=== PATIENT | male | born 1970 | race Caucasian/White ===

== ENCOUNTER 2020-02-22 18:43 | Emergency (ER) | payer MEDICARE, SELFPAY ==
--- NOTE | ~2020-02-22 | XR_ITS ---
EXAMINATION: XR chest 1V portable DATE: 02/22/2020 21:10 INDICATION: Fever. Dyspnea. TECHNIQUE: A single frontal view of the chest was obtained. COMPARISON: Chest 2 views 08/22/2018 FINDINGS: There are mild airspace opacities at the junction of right mid and upper lung zones. No ple ural effusion or pneumothorax. The heart size is normal. IMPRESSION: 1. Mild airspace opacities at the junction of right mid and upper lung zone suspicious for pneumonia. Follow-up radiographs are recommended to exclude malignancy. Reviewed, dictated and finalized at location A. IMPRESSION: 1. Mild airspace opacities at the junction of right mid and upper lung zone kathy picious for pneumonia. Follow-up radiographs are recommended to exclude maligna ncy.
[2020-02-22 18:51] VITALS: BP 122/105; PULSE 122; RESP 20; TEMP 37.9; O2SAT 96
[2020-02-22 19:15] VITALS: BP 125/84; PULSE 107; RESP 16; O2SAT 96
[2020-02-22 20:25] VITALS: RESP 17; O2SAT 99
--- NOTE | 2020-02-22 20:29 | PC.NURSE ---
Patient states he was around his cousin, whom later informed him that he was tested and tested positive for covid. Patient states he did contact his PCP and was told to come in since his symptoms worsened. Patient states he was taking OTC medications with no relief.
[2020-02-22 20:31] VITALS: BP 139/99; PULSE 106; RESP 17; O2SAT 97
--- NOTE | 2020-02-22 21:04 | ED.FEVER ---
HPI - Fever General Chief Complaint: Fever Stated Complaint: Here for Covid test Time Seen by Provider: 02/22/20 20:05 Source: patient Mode of arrival: ambulatory Limitations: no limitations History of Present Illness HPI Narrative: Patient is a 49-year-old male who presents to the emergency department with complaint of multiple illness symptoms and concerned that he has COVID-19. Patient states he has been fishing with his cousin who has recently tested positive for COVID-19. Patient has been ill for the past 3 days. He reports decreased smell and taste, fever, sore throat, cough, nausea/vomiting/diarrhea, and shortness of breath. Patient called his primary care doctor and was told he should seek medical attention if his symptoms were to worsen. Patient noticed burning sensation in his chest when he breathes, prompting him to come to the ED to be evaluated. MD elicited complaint: fever Context: sick contacts (Cousin recently tested positive for COVID-19. Patient has had direct contact) Associated symptoms: chills, myalgias, sore throat, cough, shortness of breath, nausea, vomiting and diarrhea Related Data Home Medications Medication Instructions Recorded Confirmed citalopram 20 mg tablet 20 mg PO DAILY 09/17/19 naproxen 500 mg tablet 500 mg PO BID 09/17/19 tizanidine 2 mg tablet 2 mg PO TID PRN 09/17/19 Allergies Allergy/AdvReac Type Severity Reaction Status Date / Time erythromycin base Allergy Unknown Unknown Verified 02/22/20 20:35 Review of Systems Review of Systems: All systems reviewed & are unremarkable except as noted in HPI and below Constitutional: Constitutional: Reports chills and Reports fever(s) ENT: Reports sore throat Respiratory: Respiratory: Reports cough and Reports dyspnea Gastrointestinal: Gastrointestinal: Reports diarrhea, Reports nausea and Reports vomiting Musculoskeletal: Musculoskeletal: Reports myalgias and Reports muscle cramps PMFSH Past Medical History Medical History Anxiety Chronic low back pain with left-sided sciatica Esophageal stricture GERD (gastroesophageal reflux disease) GERD without esophagitis History of esophageal stricture 08/21/2018 Hypogonadism in male Mild episode of recurrent major depressive disorder Morbid obesity with BMI of 40.0-44.9, adult LISBET (obstructive sleep apnea) Perennial allergic rhinitis Surgical History Surgical History History of arthroscopy of shoulder History of vasectomy Social History Social History Smoking status: Never smoker Second hand tobacco smoke exposure: No Alcohol intake: current Exam Const: General: cooperative, no acute distress and alert Nutritional Appearance: obese Orientation/consciousness: patient oriented x3 Limitations: no limitations Eyes: Conjunctivae: conjunctivae normal Pupils: Equal, round and reactive pupils present Resp: Effort & Inspection: normal respiratory effort Auscultation: clear to auscultation bilaterally Cardio: Rate: tachycardic Rhythm: regular rhythm GI: GI Palp: Yes Soft to palpation and No Tenderness to palpation present (GI) Auscultation: normal bowel sounds Skin: General skin exam: normal color Neuro: General: patient oriented x3 Cognition (Neuro): normal cognition Speech: normal speech Extrem: General: normal to inspection, full ROM and no clubbing, cyanosis or edema Psych: Mental Status: mental status grossly normal Affect: normal affect Attitude: cooperative Course TECHNICAL MAINTENANCE TECHNICIAN/PA Physician Supervision Patient likely with coronavirus. Advised on symptomatic management. No overt findings of pneumonia. Patient oxygen saturations normal on room air. Test has been sent and patient instructed to follow-up results with primary care physician. Patient patient is nontoxic and appropriate for outpat
[2020-02-22 21:18] VITALS: BP 138/93; PULSE 104; RESP 20; O2SAT 98
[2020-02-24 13:55] LABS: SARS-CoV-2 RNA PCR Positive
== END 2020-02-22 21:25 | disposition home or self-care (01) ==
PROVIDERS: Emergency Provider Emergency Medicine; PCP Family Medicine
DX: U07.1 COVID-19 (principal); F41.9 Anxiety disorder, unspecified; K21.9 Gastro-esophageal reflux disease without esophagitis; F32.9 Major depressive disorder, single episode, unspecified; E66.01 Morbid (severe) obesity due to excess calories; Z68.41 Body mass index [BMI] 40.0-44.9, adult; E29.1 Testicular hypofunction; M54.42 Lumbago with sciatica, left side
CPT/HCPCS: 71045; 87635; 99283; C9803; U0003

== ENCOUNTER 2020-09-07 02:33 | Outpatient (CLI) | payer MEDICARE, SELFPAY ==
[2020-09-07 21:22] LABS: SARS-CoV-2 RNA PCR Negative
== END 2020-09-07 02:34 | disposition home or self-care (01) ==
LOC: ANHCOVIDDT 02:34
PROVIDERS: PCP Family Medicine; Visit Provider Internal Medicine Gastroenterology
DX: Z01.812 Encounter for preprocedural laboratory examination (principal); Z20.828 Contact with and (suspected) exposure to other viral communicable diseases
CPT/HCPCS: 87635; C9803; U0003

== ENCOUNTER 2020-09-10 00:21 | Day surgery (SDC) | payer MEDICARE, SELFPAY ==
[2020-09-03 15:07] VITALS: BMI 41.4
[2020-09-10 11:51] VITALS: BP 139/87; PULSE 84; RESP 18; TEMP 37.1; O2SAT 94
[2020-09-10] MEDS: LACTATED RINGERS 1,000 ML 150 ML IV CONT (11:55)
--- NOTE | 2020-09-10 12:46 | WPDANESEPPF ---
Anes - Initial Pre Proc Eval Procedure: Operation Date: 09/10/20 13:30 Proposed Procedures p Screening Colonoscopy - Tim Hernández MD Date/Time: 09/10/20 12:46 Surgeon: Tim Hernández MD Pre Op Diagnosis: Neoplasm Screening Patient Data Age: 50 Gender: M Height: 5 ft 5 in Weight: 117.6 kg Last Vital Signs Temp 98.8 F 09/10/20 11:51 Pulse 84 09/10/20 11:51 Resp 18 09/10/20 11:51 BP 139/87 09/10/20 11:51 Pulse Ox 94 09/10/20 11:51 Allergies Allergy/AdvReac Type Severity Reaction Status Date / Time erythromycin base Allergy Unknown Unknown Verified 09/10/20 11:49 Home Medications Medication Instructions Recorded Confirmed Type lansoprazole 30 mg delayed 30 mg PO DAILY #90 tablet 05/14/20 09/03/20 Rx release,disintegrating tablet citalopram 20 mg tablet See Rx Instructions .ROUTE 07/28/20 09/03/20 Rx .COMPLEX #90 tablet lorazepam 0.5 mg tablet 0.5 mg PO BID PRN #60 tablet 07/28/20 09/03/20 Rx naproxen 500 mg tablet See Rx Instructions .ROUTE 07/28/20 09/03/20 Rx .COMPLEX #60 tablet tizanidine 2 mg tablet See Rx Instructions .ROUTE 07/28/20 09/03/20 Rx .COMPLEX #90 tablet albuterol sulfate [ProAir HFA] See Rx Instructions .ROUTE .COMPLEX 09/03/20 09/03/20 History Patient hx anesthesia problems: none Family hx anesthesia problems: none PMFSH Past Medical History Medical History Anxiety Chronic neck and back pain Esophageal stricture GERD (gastroesophageal reflux disease) History of esophageal dilatation 4 times, last in 1999 History of esophageal stricture 08/21/2018 Hypogonadism in male Mild episode of recurrent major depressive disorder Morbid obesity with BMI of 40.0-44.9, adult LISBET (obstructive sleep apnea) Perennial allergic rhinitis Surgical History Surgical History History of arthroplasty of both knees 2004 to 2008 History of arthroscopy of shoulder 2007 History of left inguinal hernia repair 1989 History of lumbosacral spine surgery 2004 History of tonsillectomy History of vasectomy 1995 Family History Family History Other Family history of coronary artery disease Family history of renal cell carcinoma Social History Social History Smoking status: Never smoker Second hand tobacco smoke exposure: No Alcohol intake: current Substance use type: does not use Living arrangements: with family Gender identity (if verbalized by the patient): Male Sexual Orientation (if Verbalized by the Patient): Straight or Heterosexual Spiritual care concerns: No Anes - Eval Final PreProcedure Day of Procedure 09/10/20 12:46 Patient weight: morbidly obese Heart: regular rate and rhythm Lungs: clear to auscultation Airway: Mallampati scale class II Neurological: alert and oriented Last oral intake: >/= 8 hours ASA classification: III Emergent: no Anesthetic plan: proceed Anesthesia type and monitoring: general GIVS and standard monitoring Informed Consent: The patient's anesthetic plan and its attendant risks and benefits were discussed with the patient/family/POA. Questions were solicited and answers provided to the satisfaction of the patient/family/POA.
--- NOTE | 2020-09-10 12:47 | PM.HPGS ---
History of Present Illness History of Present Illness Consent: Risks, benefits, and alternatives have been discussed and questions answered. Patient agrees to proceed with procedure. Chief complaint: Neoplasm Screening Narrative: Vu Porter is a 50 year old male here for screening colonoscopy, last one 5 years ago. Review of Systems Constitutional: Constitutional: Denies headache(s) and Denies weakness Eyes: Eyes: Denies blurry vision ENT: Reports Normal hearing present, Denies headache(s) and Denies neck pain Cardiovascular: Cardiovascular: Denies chest pain and Denies dyspnea Respiratory: Respiratory: Denies dyspnea Gastrointestinal: Gastrointestinal: Reports no additional gastrointestinal complaints Genitourinary: Genitourinary: Denies dysuria Musculoskeletal: Musculoskeletal: Denies neck pain Integumentary/Breasts: Skin/Breast: Denies dry skin Neurologic: Reports Normal hearing present, Denies headache(s) and Denies weakness Psychiatric: Psychiatric: Denies anxiety Endocrine: Endocrine: Denies change in body appearance Hematologic/Lymphatic: Hematologic/Lymphatic: Denies easy bleeding Allergic/Immunologic: Allergic/Immunologic: Denies urticaria PMFSH Past Medical History Medical History Anxiety Chronic neck and back pain Esophageal stricture GERD (gastroesophageal reflux disease) History of esophageal dilatation 4 times, last in 1999 History of esophageal stricture 08/21/2018 Hypogonadism in male Mild episode of recurrent major depressive disorder Morbid obesity with BMI of 40.0-44.9, adult LISBET (obstructive sleep apnea) Perennial allergic rhinitis Surgical History Surgical History History of arthroplasty of both knees 2004 to 2008 History of arthroscopy of shoulder 2007 History of left inguinal hernia repair 1989 History of lumbosacral spine surgery 2004 History of tonsillectomy History of vasectomy 1995 Family History Family History Other Family history of coronary artery disease Family history of renal cell carcinoma Social History Social History Smoking status: Never smoker Second hand tobacco smoke exposure: No Alcohol intake: current Substance use type: does not use Living arrangements: with family Gender identity (if verbalized by the patient): Male Sexual Orientation (if Verbalized by the Patient): Straight or Heterosexual Spiritual care concerns: No Meds Home Medications and Allergies Home Medications Medication Instructions Recorded Confirmed Type lansoprazole 30 mg delayed 30 mg PO DAILY #90 tablet 05/14/20 09/03/20 Rx release,disintegrating tablet citalopram 20 mg tablet See Rx Instructions .ROUTE 07/28/20 09/03/20 Rx .COMPLEX #90 tablet lorazepam 0.5 mg tablet 0.5 mg PO BID PRN #60 tablet 07/28/20 09/03/20 Rx naproxen 500 mg tablet See Rx Instructions .ROUTE 07/28/20 09/03/20 Rx .COMPLEX #60 tablet tizanidine 2 mg tablet See Rx Instructions .ROUTE 07/28/20 09/03/20 Rx .COMPLEX #90 tablet albuterol sulfate [ProAir HFA] See Rx Instructions .ROUTE .COMPLEX 09/03/20 09/03/20 History Allergies Allergy/AdvReac Type Severity Reaction Status Date / Time erythromycin base Allergy Unknown Unknown Verified 09/10/20 11:49 Vital Signs Vital Signs - 24 hr 09/10/20 11:51 Temperature 98.8 F Pulse Rate 84 Respiratory Rate 18 Blood Pressure 139/87 Pulse Oximetry 94 Exam Const: General: comfortable and no acute distress HENMT: General nose exam: Normal nares present Eyes: General: appearance normal, both eyes and all related structures Neck: Neck: no JVD Resp: Auscultation: clear to auscultation bilaterally Cardio: Rate: regular rate Rhythm: regular rhythm GI: Inspection: non-diste
[2020-09-10 13:04] VITALS: BP 109/73; PULSE 80; RESP 22; O2SAT 95
[2020-09-10 13:14] VITALS: BP 118/71; PULSE 80; RESP 22; O2SAT 95
[2020-09-10 13:24] VITALS: BP 134/88; PULSE 75; RESP 22; O2SAT 95
== END 2020-09-10 13:37 | disposition home or self-care (01) ==
PROVIDERS: PCP Family Medicine; Visit Provider Internal Medicine Gastroenterology
PROC: 0DJD8ZZ Inspection of Lower Intestinal Tract, Via Natural or Artificial Opening Endoscopic (ICD-10-PCS; CPT 45378; principal; 2020-09-10 13:30)
DX: Z12.11 Encounter for screening for malignant neoplasm of colon (principal); K21.9 Gastro-esophageal reflux disease without esophagitis; F33.0 Major depressive disorder, recurrent, mild; F41.9 Anxiety disorder, unspecified; G47.33 Obstructive sleep apnea (adult) (pediatric); E29.1 Testicular hypofunction; E66.01 Morbid (severe) obesity due to excess calories; Z68.41 Body mass index [BMI] 40.0-44.9, adult
CPT/HCPCS: G0121; J2704; J7120

== ENCOUNTER 2020-11-18 12:35 | Outpatient (CLI) | payer MEDICARE, SELFPAY ==
--- NOTE | 2020-11-20 13:03 | WPDPFTINT ---
PFT Interpretation PFT Interpretation: This PFT met all criteria for ATS standards and reproducibility FEV/FVC post bronchodilator 86% FEV1 143 % FVC 125% TLC 112% RV 75% RV/TLC 24% DLCO 91% when adjusted for alveolar volume but not adjusted for hemoglobin Flow volume loops showed normal Impression: This is a normal PFT. Clinical correlation is advised.
== END 2020-11-18 12:36 | disposition home or self-care (01) ==
PROVIDERS: PCP Family Medicine; Visit Provider Internal Medicine Critical Care Medicine
DX: R06.02 Shortness of breath (principal)
CPT/HCPCS: 94060; 94726; 94729

== ENCOUNTER → 2020-12-08 00:33 | Outpatient (CLI) | payer MEDICARE, SELFPAY ==
[2020-12-08 21:18] LABS: SARS-CoV-2 RNA PCR Negative
== END ==
PROVIDERS: PCP Family Medicine; Visit Provider Internal Medicine Critical Care Medicine
DX: R68.89 Other general symptoms and signs (principal); Z20.822 Contact with and (suspected) exposure to COVID-19
CPT/HCPCS: C9803; U0003; U0005

== ENCOUNTER 2020-12-10 09:04 | Outpatient (CLI) | payer MEDICARE, SELFPAY ==
--- NOTE | 2020-12-25 13:31 | WPDSLEEPSTUD ---
Sleep Study Date of Study: 12/10/20 Ordering Provider: Ara Jain MD Interpreting Physician: Ara Jain MD Sleep Study Type: Split Polysomnogram Height: 1.6 m Weight: 113.398 kg Body Mass Index: 44.2 Neck Circumference (inches): 18 [place]: 9 Reason for Sleep Study LISBET, Using CPAP 14 cm without relief Sleep History Vu Porter is a 50 year old man with sleep apnea who is using CPAP 14 cm as well as Provigil during the daytime to improve his daytime sleepiness. He constantly snores and it is loud enough that others complain about it always. He occasionally awakens at night with heartburn, belching or coughing. He frequently awakens from sleep feeling short of breath. He frequently has trouble sleep with a cold. He occasionally wakes up gasping for breath during the night. He frequently has breathing problems at night observed by others. He frequently sweats excessively at night and notices his heart pounding or beating irregularly at night. He frequently falls asleep during the day frequently involuntarily, rarely while driving. He does not fall asleep while exerting physical effort. He occasionally has loss of muscle tone was strong emotion. He frequently has daytime difficulties due to his excessive sleepiness, he is currently disabled. He occasionally feels paralyzed on waking or falling asleep. He rarely has vivid dreamlike scenes upon awakening or falling asleep. He rarely feels afraid to go to sleep. He rarely has nightmares. He rarely remembers his dreams. He occasionally has racing thoughts. He occasionally feels sad, depressed and anxious. He occasionally has muscular tension. He rarely notices parts of his body jerking. He rarely kicks at night. He occasionally has crawling and aching feelings in his legs. He occasionally has leg pain at night. He rarely has morning jaw pain. He does not grind his teeth during sleep. He frequently is bothered by pain during the day as well as wakes up with pain during the night. He frequently wakes up feeling stiff in the morning with sore achy muscles as well as pain in the neck and spine. He has memory problems, concentration difficulties, insomnia, headaches and he takes antacids regularly. Normal bedtime is 2:00 a.m. taking 2 hours to fall asleep typically waking 4 times at night. While awake he will look at his telephone and try to go back to sleep. He may wake up 4 times at night. He stays awake between 5 and 10 minutes. He estimates getting 3-4 hours of sleep if he is lay. He never has enough energy for social activities. He wakes in the morning between 9 and 10:00 a.m.. On the weekends his schedule shows that he goes to bed at 2:00 a.m. and may wake as late as 11:00 a.m.. He takes naps. A short nap may be refreshing. He is drowsy in the morning for 2 hours or longer. Habits: He indicates that he does not use tobacco. He uses occasional alcohol. He drinks tea. He does not use recreational drugs. COUNT INCLUDES THE [facility] Past Medical History Medical History Anxiety Chronic neck and back pain Colon cancer screening Esophageal stricture GERD (gastroesophageal reflux disease) History of esophageal dilatation 4 times, last in 1999 History of esophageal stricture 08/21/2018 History of wheezing Hypogonadism in male Mild episode of recurrent major depressive disorder Morbid obesity with BMI of 40.0-44.9, adult LISBET (obstructive sleep apnea) Perennial allergic rhinitis Surgical History Surgical History History of arthroplasty of both knees 2004 to 2008 History of arthroscopy of shoulder 2007 History of left inguinal hernia repair 1989 History of lumbosacral spine surgery 2004 History of tonsillectomy History of vasectomy 1995 Family History Family History Other Family history of [place]
[2020-12-25 15:34] VITALS: BMI 44.2
== END 2020-12-10 09:05 | disposition home or self-care (01) ==
LOC: ANHCSM 09:04
PROVIDERS: PCP Family Medicine; Visit Provider Internal Medicine Critical Care Medicine
DX: G47.33 Obstructive sleep apnea (adult) (pediatric) (principal)
CPT/HCPCS: 95811

== ENCOUNTER 2021-02-23 13:11 | Outpatient (CLI) | payer MEDICARE, SELFPAY ==
--- NOTE | ~2021-02-23 | XR_ITS ---
EXAMINATION: XR chest 2V EXAM DATE: 02/23/2021 14:22 INDICATION: R06.02 - Shortness of breath, follow-up lung nodule. TECHNIQUE: Frontal and lateral projections of the chest obtained and reviewed. Comparison is made to prior examination from 02/22/2020. FINDINGS: Previously seen airspace disease has resolved. The lungs are clear. There are no pleural e ffusions. The cardiomediastinal silhouette is within normal limits. There is no pneumothorax sus[place] n[place]ul. The bones and soft tissues are unremarkable. IMPRESSION: Unremarkable chest x-ray exam. Reviewed, dictated and finalized at location B.
--- NOTE | 2021-02-23 13:24 | ECHO_ITS ---
Patient Info Name: Vu Porter Age: 50 years : 1970 Gender: Male Ht: 65 in Wt: 255 lbs BSA: 2.36 m2 HR: 72 bpm BP: 130 / 90 mmHg Technical Quality: Good Exam Date: 02/23/2021 1:39 PM Exam Location: [facility] Patient Status: Outpatient Admit Date: 02/23/2021 Staff Ordering Physician: Olvin Anna APRN Vegetable Packer: Abdi Palacios RDCS, RT Attending Provider: Olvin Anna APRN Referring Physician: Wilfrido BARRERA; Exam Type: CA echo doppler color flow Study Info Indications R06.02 - Shortness of breath Complete two-dimensional, color flow and Doppler transthoracic echocardiogram is performed. Strain analysis performed. Summary 1. Complete two-dimensional, color flow and Doppler transthoracic echocardiogram is performed. 2. Left ventricular chamber dimension is normal. 3. Left ventricular systolic function is normal, estimated at 60-65%. 4. The left ventricular diastolic function is grade II diastolic dysfunction. 5. E/e' 9 is minimally elevated. 6. Global longitudinal strain is mildly abnormal at -16.3%. 7. There is trace mitral valve regurgitation. 8. Dilated inferior vena cava with <50% collapse upon inspiration consistent with significantly elevated right atrial pressure, 15 mmHg. Left Ventricle E/e' 9 is minimally elevated. Global longitudinal strain is mildly abnormal at -16.3%. Left ventricular chamber dimension is normal. Left ventricular systolic function is normal, estimated at 60-65%. The left ventricular diastolic function is grade II diastolic dysfunction. Right Ventricle Right ventricular systolic function is normal with normal TAPSE at 2.5 cm. Right ventricular chamber dimension is normal. Left Atria Left atrial chamber dimension is normal. Right Atria Right atrial chamber dimension is normal. Aortic Valve The aortic valve is trileaflet. There is no aortic valve stenosis. There is no aortic valve regurgitation. Pulmonic Valve There is no pulmonic regurgitation. Mitral Valve There is no mitral valve stenosis. There is trace mitral valve regurgitation. Tricuspid Valve There is no tricuspid valve regurgitation. Pericardium/Pleural There is no pericardial effusion. Inferior Vena Cava Dilated inferior vena cava with <50% collapse upon inspiration consistent with significantly elevated right atrial pressure, 15 mmHg. Aorta The aortic root size at the sinus of Valsalva is normal. Left Ventricular Outflow Tract Name Value Normal LVOT 2D LVOT Diameter 2.0 cm LVOT Doppler LVOT Peak Gradient 3 mmHg LVOT Mean Gradient 2 mmHg LVOT VTI 20 cm LVOT VTI/AV VTI Ratio 0.8 LVOT Stroke Volume 62 ml LVOT CO 4.5 l/min LVOT CI 1.9 l/min/m2 Mitral Valve Name Value Normal
== END 2021-02-23 13:12 | disposition home or self-care (01) ==
PROVIDERS: PCP Family Medicine; Visit Provider Nurse Practitioner Family
DX: R06.02 Shortness of breath (principal); I51.89 Other ill-defined heart diseases
CPT/HCPCS: 71046; 93306

== ENCOUNTER 2021-10-04 11:54 | Outpatient (CLI) | payer MEDICARE, SELFPAY ==
--- NOTE | ~2021-10-04 | US_ITS ---
EXAMINATION: US soft tissue UE RT DATE: 10/04/2021 12:41 INDICATION: Localized swelling, mass and lump at the posterior right upper arm TECHNIQUE: Multiple grayscale and Doppler ultrasound images of the region of concern at the right upp er arm were obtained. COMPARISON: None FINDINGS: 2.2 x 2.7 x 0.8 cm mass, minimally hyperechoic and with similar echotexture relative to the surroundi ng subcutaneous fat most suggestive of a lipoma. A few normal-sized right axillary lymph nodes with p rominent central fatty esau, the largest measuring 8 mm in maximal short axis diameter. IMPRESSION: 1. Nonspecific 2.7 x 2.2 x 0.8 cm mass at the region of concern with appearance most consistent with and statistically most likely to represent a lipoma. Reviewed, dictated and finalized at location A. ERCIAL SUBCONTRACTOR
== END 2021-10-04 11:55 | disposition home or self-care (01) ==
LOC: ANHIMG 11:57
PROVIDERS: PCP Family Medicine; Visit Provider Nurse Practitioner
DX: R22.31 Localized swelling, mass and lump, right upper limb (principal)
CPT/HCPCS: 76882

== ENCOUNTER → 2021-11-13 00:09 | Outpatient (CLI) | payer MEDICARE, SELFPAY ==
[2021-11-13 20:23] LABS: SARS-CoV-2 RNA PCR Negative
== END ==
PROVIDERS: PCP Family Medicine; Visit Provider Surgery
DX: Z01.812 Encounter for preprocedural laboratory examination (principal); Z20.822 Contact with and (suspected) exposure to COVID-19
CPT/HCPCS: C9803; U0003; U0005

== ENCOUNTER → 2021-12-07 02:13 | Outpatient (CLI) | payer MEDICARE, SELFPAY ==
[2021-12-07 16:44] LABS: SARS-CoV-2 RNA PCR Negative
== END ==
PROVIDERS: Visit Provider Surgery
DX: Z01.812 Encounter for preprocedural laboratory examination (principal); Z20.822 Contact with and (suspected) exposure to COVID-19
CPT/HCPCS: C9803; U0003; U0005

== ENCOUNTER 2021-12-10 00:34 | Day surgery (SDC) | payer MEDICARE, SELFPAY ==
[2021-11-16 09:46] VITALS: BMI 41.5
--- NOTE | 2021-11-16 09:53 | PC.NURSE ---
Report to the Outpatient Waiting Room, entrance under the green pavilion located off [facility], at time 1130 on date 11/17/21. OR Time: 1330. - You will be asked a series of questions to screen for COVID 19 for your protection. - A mask is required within the hospital. - No visitors are allowed at this time. Preoperative COVID Testing Requirements: NEGATIVE 11/13 No COVID Test needed if: (proof is required; if not received patient will have Rapid Test prior to entry) - Patient has received COVID Vaccine at least 14 days prior to procedure date or - Patient has positive COVID test result within last 90 days of surgery date. COVID Test needed if above criteria is not met If not COVID vaccinated a COVID test must be conducted within 72 hours of surgery and patient is asked to isolate self from time of testing until procedure. You will go to the [facility] for your COVID testing. The [facility] is located at the corner of [address] [facility]. You will only be called if COVID results are positive and your surgeon may reschedule your elective surgery date. Patients may have clear liquids (water, carbonated beverages, clear teas, apple juice) until 3 hours prior to surgery with a maximum of 20 ounces. - No food from midnight until time of surgery Take the following medications with a SIP of water the morning of surgery: CITALOPRAM, LORAZEPAM (IF NEEDED), TIZANIDINE Medications to discontinue per physician: VITAMINS Date to take last dose: NO MORE UNTIL AFTER SURGERY Please no make-up, nail belarusian, hairspray, perfume, deodorant, or body powder the day of surgery. No jewelry (including any body piercings) or valuables the day of surgery, leave them at home. Please take a shower or bath the night before, or the morning of, surgery with an antibacterial soap. Wear comfortable, loose fitting clothing. - Jewelry must be removed prior to entering the operating room. Rings and piercings that are not removed may be cut off. - The hospital will not accept responsibility for valuables. - Please leave all valuables, including medications, at home the day of surgery. If you are going home after surgery, a licensed batch mixing truck driver must drive you home. - NO public transportation without another adult. - We recommend that an adult stay with you for 24 hours following discharge. - We also recommend that you do not drive, make important decision, drink alcoholic beverages, or take any drugs that were not prescribed by your health care provider for at least 24 hours after your discharge time. Follow any additional instructions given to you from your surgeon. Telephone instructions given to BA MERA and asked if any additional questions and then verbalized understanding. Patient advised to call surgeon office or pre surgery nurse liaison [phone] if any additional questions.
[2021-12-06 15:00] VITALS: BMI 41.5
--- NOTE | 2021-12-06 15:01 | PC.NURSE ---
Report to the Outpatient Waiting Room, entrance under the green pavilion located off [facility], at time __0630_ on date _12/10/21 . OR Time: ___829_. - You will be asked a series of questions to screen for COVID 19 for your protection. - A mask is required within the hospital. - You are allowed one visitor are allowed at this time. Preoperative COVID Testing Requirements: No COVID Test needed if: (proof is required; if not received patient will have Rapid Test prior to entry) - Patient has received COVID Vaccine at least 14 days prior to procedure date or - Patient has positive COVID test result within last 90 days of surgery date. COVID Test needed if above criteria is not met If not COVID vaccinated a COVID test must be conducted within 72 hours of surgery and patient is asked to isolate self from time of testing until procedure. You will go to the [facility] for your COVID testing. The [facility] is located at the corner [address] [facility]. COVID TEST 12/07/21 @ 0900 AT [facility] You will only be called if COVID results are positive and your surgeon may reschedule your elective surgery date. Patients may have clear liquids (water, carbonated beverages, clear teas, apple juice) until 3 hours prior to surgery with a maximum of 20 ounces. - No food from midnight until time of surgery - Infants may have breast milk until 4 hours before surgery, infant formula 6 hours prior to surgery. - Children will be allowed to drink immediately following surgery. If applicable, please bring a bottle or sippy cup to assist with drinking. Juice, water, soda, and popsicles are readily available. For infants on formula, please bring formula the day of surgery. Pacifiers are allowed. Take the following medications with a SIP of water the morning of surgery: _CITALOPRAM, ALPRAZOLAM Medications to discontinue per physician MULTIVITAMIN Date to take last dose__12/06/21 Please no make-up, nail georgian, hairspray, perfume, deodorant, or body powder the day of surgery. No jewelry (including any body piercings) or valuables the day of surgery, leave them at home. Please take a shower or bath the night before, or the morning of, surgery with an antibacterial soap. Wear comfortable, loose fitting clothing. Children are encouraged to wear pajamas. - Jewelry must be removed prior to entering the operating room. Rings and piercings that are not removed may be cut off. - The hospital will not accept responsibility for valuables. - Please leave all valuables, including medications, at home the day of surgery. If you are going home after surgery, a licensed industrial tractor driver must drive you home. - NO public transportation without another adult. - We recommend that an adult stay with you for 24 hours following discharge. - We also recommend that you do not drive, make important decision, drink alcoholic beverages, or take any drugs that were not prescribed by your health care provider for at least 24 hours after your discharge time. For Pediatric surgeries, we recommend two adults accompany the child home (only one inside the building at this time). Follow any additional instructions given to you from your surgeon. Telephone instructions given to _NURY and asked if any additional questions and then verbalized understanding. Patient advised to call surgeon office or pre surgery nurse liaison [phone] if any additional questions. MEDICATIONS AND HEALTH HX UPDATED AND PREOP INSTRUCTIONS GIVEN
[2021-12-10 06:14] VITALS: BP 136/91; PULSE 87; RESP 20; TEMP 36.7; O2SAT 95
[2021-12-10] MEDS: LACTATED RINGERS 1,000 ML 30 ML IV CONT (06:35)
--- NOTE | 2021-12-10 06:49 | WPDANESEPPF ---
Anes - Initial Pre Proc Eval Procedure: Operation Date: 12/10/21 08:30 Proposed Procedures p Excisional Biopsy Right Upper Extremity Mass - Miriam Briones MD Date/Time: 12/10/21 06:49 Surgeon: Miriam Briones MD Pre Op Diagnosis: sub q mass right upper extremity 3x3cm Patient Data Age: 51 Gender: M Height: 1.65 m Weight: 113.4 kg Allergies Allergy/AdvReac Type Severity Reaction Status Date / Time erythromycin base Allergy Severe Anaphylaxis Verified 12/10/21 06:21 Home Medications Medication Instructions Recorded Confirmed Type citalopram 20 mg tablet 20 mg PO DAILY #90 tablet 05/14/21 12/10/21 Rx lorazepam 0.5 mg tablet 0.5 mg PO BID PRN #60 tablet 07/30/21 12/10/21 Rx multivitamin 1 tablet PO DAILY 11/16/21 12/10/21 History fluticasone propionate 50 2 spray INTRANASAL DAILY #16 g 11/17/21 12/10/21 Rx mcg/actuation nasal spray,suspension naproxen 500 mg tablet 500 mg PO BID PRN #60 tablet 11/18/21 12/10/21 Rx tizanidine 2 mg tablet 2 mg PO TID PRN #90 tablet 11/18/21 12/10/21 Rx albuterol sulfate [ProAir HFA] 2 puff INHALATION Q4-6H PRN 12/06/21 12/10/21 History lansoprazole 30 mg PO DAILY 12/06/21 12/10/21 History levofloxacin 500 mg tablet 500 mg PO DAILY #10 tablet 12/09/21 12/10/21 Rx prednisone 10 mg tablet 10 mg PO BID #20 tablet 12/09/21 12/10/21 Rx Patient hx anesthesia problems: none Family hx anesthesia problems: none Results Review: All pre-operative results and documents have been reviewed as part of the pre-operative evaluation. [facility] Past Medical History Medical History Abnormal CXR Anxiety Chronic neck and back pain Esophageal stricture GERD (gastroesophageal reflux disease) History of esophageal dilatation 4 times, last in 1999 History of esophageal stricture 08/21/2018 History of wheezing Hypogonadism in male Mild episode of recurrent major depressive disorder Morbid obesity with BMI of 40.0-44.9, adult LISBET (obstructive sleep apnea) Perennial allergic rhinitis Surgical History Surgical History History of arthroplasty of both knees 2004 to 2008 History of arthroscopy of shoulder 2007 History of left inguinal hernia repair 1989 History of lumbosacral spine surgery 2004 History of right knee joint replacement (~2020) History of tonsillectomy History of vasectomy 1995 Family History Family History Other Diabetes mellitus Family history of coronary artery disease Family history of renal cell carcinoma Social History Social History Smoking status: Never smoker Second hand tobacco smoke exposure: No Alcohol intake: current Drinks per week: 4 Substance use: never Substance use type: does not use Living arrangements: with family Additional occupation/education comments: Disabled Gender identity (if verbalized by the patient): Male Sexual Orientation (if Verbalized by the Patient): Straight or Heterosexual Spiritual care concerns: No Anes - Eval Final PreProcedure Day of Procedure 12/10/21 06:49 Patient weight: morbidly obese Heart: regular rate and rhythm Lungs: clear to auscultation Airway: Mallampati scale class III Neurological: alert and oriented Last oral intake: >/= 8 hours ASA classification: III Emergent: no Anesthetic plan: proceed Anesthesia type and monitoring: general LMA and standard monitoring Results Review: All pre-operative results and documents have been reviewed as part of the pre-operative evaluation. Informed Consent: The patient's anesthetic plan and its attendant risks and benefits were discussed with the patient/family/POA. Questions were solicited and answers provided to the satisfaction of the patient/family/POA.
--- NOTE | 2021-12-10 07:21 | PM.IMHP ---
H&P: HPI History of Present Illness Date/Time: 12/10/21 07:21 Vu is a 51 y/o male who presents to our office at the request of Evonne Rodriguez NP with complaints of a subcutaneous mass on his right shoulder. He states the mass has been present for 3 years. He states he has noticed an increase in size of the mass over the past 3 months. He states he can feel the mass more with certain movements and has occasional shooting pain down his arm. Chief Complaint: R should mass Review of Systems Review of Systems: All systems reviewed & are unremarkable except as noted in HPI and below PMFSH Past Medical History Medical History Abnormal CXR Anxiety Chronic neck and back pain Esophageal stricture GERD (gastroesophageal reflux disease) History of esophageal dilatation 4 times, last in 1999 History of esophageal stricture 08/21/2018 History of wheezing Hypogonadism in male Mild episode of recurrent major depressive disorder Morbid obesity with BMI of 40.0-44.9, adult LISBET (obstructive sleep apnea) Perennial allergic rhinitis Surgical History Surgical History History of arthroplasty of both knees 2004 to 2008 History of arthroscopy of shoulder 2007 History of left inguinal hernia repair 1989 History of lumbosacral spine surgery 2004 History of right knee joint replacement (~2020) History of tonsillectomy History of vasectomy 1995 Family History Family History Other Diabetes mellitus Family history of coronary artery disease Family history of renal cell carcinoma Social History Social History Smoking status: Never smoker Second hand tobacco smoke exposure: No Alcohol intake: current Drinks per week: 4 Substance use: never Substance use type: does not use Living arrangements: with family Additional occupation/education comments: Disabled Gender identity (if verbalized by the patient): Male Sexual Orientation (if Verbalized by the Patient): Straight or Heterosexual Spiritual care concerns: No Meds Home Medications and Allergies Home Medications Medication Instructions Recorded Confirmed Type citalopram 20 mg tablet 20 mg PO DAILY #90 tablet 05/14/21 12/10/21 Rx lorazepam 0.5 mg tablet 0.5 mg PO BID PRN #60 tablet 07/30/21 12/10/21 Rx multivitamin 1 tablet PO DAILY 11/16/21 12/10/21 History fluticasone propionate 50 2 spray INTRANASAL DAILY #16 g 11/17/21 12/10/21 Rx mcg/actuation nasal spray,suspension naproxen 500 mg tablet 500 mg PO BID PRN #60 tablet 11/18/21 12/10/21 Rx tizanidine 2 mg tablet 2 mg PO TID PRN #90 tablet 11/18/21 12/10/21 Rx albuterol sulfate [ProAir HFA] 2 puff INHALATION Q4-6H PRN 12/06/21 12/10/21 History lansoprazole 30 mg PO DAILY 12/06/21 12/10/21 History levofloxacin 500 mg tablet 500 mg PO DAILY #10 tablet 12/09/21 12/10/21 Rx prednisone 10 mg tablet 10 mg PO BID #20 tablet 12/09/21 12/10/21 Rx Allergies Allergy/AdvReac Type Severity Reaction Status Date / Time erythromycin base Allergy Severe Anaphylaxis Verified 12/10/21 06:21 Exam Const: General: cooperative, comfortable and no acute distress Nutritional Appearance: obese Orientation/consciousness: patient oriented x3 Resp: Auscultation: clear to auscultation bilaterally Cardio: Rate: regular rate Rhythm: regular rhythm GI: Inspection: normal to inspection GI Palp: Yes Soft to palpation and No Tenderness to palpation present (GI) Skin: Other: R shoulder - well circumscribed SQ mass measuring approx 3x3 cm, mild TTP, no overlying skin changes Assessment and Plan Assessment and plan (1) Subcutaneous mass of right upper extremity: Code(s): R22.31 - Localized swelling, mass and lump, right upper limb Status: Acute Assessment and Plan: given gr
--- NOTE | 2021-12-10 07:24 | WPDHPUPDATE1 ---
History and Physical Update Update Date/Time: 12/10/21 07:24 History and Physical has been reviewed, including an updated exam of the patient. There are NO changes in the patient's condition. Risks, benefits, and alternatives have been discussed and questions answered. Patient agrees to proceed with procedure.
[2021-12-10] MEDS: ceFAZolin 2 GM/D5W 50 ML 2 GM/50 ML BAG IVPB (07:28)
[2021-12-10] MEDS: BUPIVACAINE/EPINEPHRINE 0.5% 30 ML VIAL 10 ML INFILTRATE (07:28)
[2021-12-10 08:15] VITALS: BP 120/59; PULSE 81; RESP 16; O2SAT 93
--- NOTE | 2021-12-10 08:28 | P.OP_ITS ---
Procedure Note - Detailed Date of Procedure 12/10/21 Pre-op Diagnosis sub q mass right upper extremity 3x3cm Post-op Diagnosis same Procedure Performed Excisional biopsy subcutaneous mass right upper extremity Surgeon Miriam Briones MD Anesthesia MAC and local Indications 51-year-old male with progressively growing right shoulder subcutaneous mass over last few years, now symptomatic with movement Findings multi lobular lipoma Description of Procedure The patient was taken the operating room and placed in the supine position. After adequate induction of MAC anesthesia, the patient was prepped and draped i n the normal sterile fashion. A time-out was then done to verify the patient's identity, as well as the procedure being performed. I began by localizing the area around this palpable mass in the right lateral shoulder. I then made an incision through the dermis into the subcutaneous tissue. There was noted to be a well encapsulated mass, lipoma just anterior to the fascia. This was excised in full will be sent to pathology for further review. There was some other smaller lipomatous masses in the area that I also excised. Once the cavity was completely clear, I copiously irrigated the cavity and gained hemostasis with the Bovie cautery. I then closed the subcutaneous tissue with 3-0 Vicryl suture. The skin was closed with subcuticular 4-0 Monocryl suture. The patient tolerated the procedure well and was alert and awake in the operating room postoperatively. He will be sent to the recovery room in stable condition. Estimated Blood Loss 10 Drains No Packing No Pathology yes Complications No immediate complications Condition stable Disposition PACU
[2021-12-10 08:45] VITALS: BP 125/67; PULSE 79; RESP 16; O2SAT 94
== END 2021-12-10 09:05 | disposition home or self-care (01) ==
PROVIDERS: PCP Family Medicine; Visit Provider Surgery
PROC: (CPT 24071; principal; 2021-12-10 08:30)
DX: D17.21 Benign lipomatous neoplasm of skin and subcutaneous tissue of right arm (principal); F41.9 Anxiety disorder, unspecified; F33.0 Major depressive disorder, recurrent, mild; K21.9 Gastro-esophageal reflux disease without esophagitis; G47.33 Obstructive sleep apnea (adult) (pediatric); E66.01 Morbid (severe) obesity due to excess calories; Z68.41 Body mass index [BMI] 40.0-44.9, adult; Z79.51 Long term (current) use of inhaled steroids
CPT/HCPCS: 24071; 88304; J0690; J1100; J2250; J2370; J2704; J3010; J7120

== ENCOUNTER 2022-04-20 09:05 | Outpatient (CLI) | payer MEDICARE, SELFPAY ==
--- NOTE | ~2022-04-20 | NM_ITS ---
EXAMINATION: NM marilou stress w perfusion DATE: 04/20/2022 12:28 CDT INDICATION: Dyspnea TECHNIQUE: Rest images were obtained following intravenous administration of 9 mCi Tc99m tetrofosmin (Myoview). The patient was infused intravenously with Lexiscan (regadenoson). Then, 28.3 mCi Tc99m te trofosmin (Myoview) was administered intravenously, and stress images were obtained. Data was reconst ructed into short axis and horizontal and vertical long axis SPECT images. Gated SPECT images were al so obtained. COMPARISON: None. FINDINGS: There is no definite reversible or fixed perfusion abnormality to suggest ischemia or infar ction. There is no segmental wall motion abnormality. Left ventricular ejection fraction measures 7 0%. IMPRESSION: 1. No definite ischemia or infarct. 2. Normal left ventricular ejection fraction measuring 70%. Reviewed, dictated and finalized at location A.
--- NOTE | 2022-04-20 09:31 | EST_ITS ---
Patient Info Name: Vu Porter Age: 51 years : 1970 Gender: Male Ht: 65 in Wt: 270 lbs BSA: 2.44 m2 HR: 84 bpm BP: 135 / 78 mmHg Heart Rhythm: Sinus Rhythm Exam Date: 04/20/2022 10:17 AM Exam Location: [facility] Stress Patient Status: Outpatient Admit Date: 04/20/2022 Staff Ordering Physician: Mendez Laguna DO Attending Provider: Mendez Laguna DO Exercise Technologist: Saritha Jenkins CT Exam Type: CA stress marilou w NM Study Info Indications R06.00 - Dyspnea, unspecified A regadenoson stress test was performed. Summary 1. 1. Negative lexiscan stress test for ischemic ST changes by ECG criteria. 2. 2. Stable hemodynamics throughout the test. 3. 3. Nuclear scan to follow and will be reported separately. Please correlate with it. 4. 4. Patient informed of the above results. Protocol: Lexiscan Stress ECG Details Stage: REST Duration (min): 0 min : 57 sec HR (bpm): 82 SBP (mmHg): 135 DBP (mmHg): 78 Stage: REST Duration (min): 10 min : 21 sec HR (bpm): 85 SBP (mmHg): 135 DBP (mmHg): 78 Stage: STAGE 1 Duration (min): 1 min : 0 sec HR (bpm): 99 SBP (mmHg): 132 DBP (mmHg): 91 Stage: RECOVERY Duration (min): 1 min : 0 sec HR (bpm): 108 SBP (mmHg): 132 DBP (mmHg): 91 Stage: RECOVERY Duration (min): 2 min : 0 sec HR (bpm): 104 SBP (mmHg): 132 DBP (mmHg): 91 Stage: RECOVERY Duration (min): 3 min : 0 sec HR (bpm): 102 SBP (mmHg): 122 DBP (mmHg): 83 Stage: RECOVERY Duration (min): 3 min : 15 sec HR (bpm): 103 SBP (mmHg): 122 DBP (mmHg): 83 Rest HR: 85 bpm Peak HR: 108 bpm Rest Sys BP: 135 mmHg Peak Sys BP: 132 mmHg Max Pred HR: 167 bpm % Max Pred HR: 65 % Target HR: 142 bpm Max RPP: 14,256 bpm*mmHg Termination Reason: Completed protocol Cardiac Symptoms: Shortness of breath Total Time: 1 min : 0 sec Rest Garcia BP: 78 mmHg Peak Garcia BP: 91 mmHg Total Dose: 0.4 mg Resting ECG Sinus rhythm. Stress ECG No ST changes. Arrhythmias None. Report Signatures
== END 2022-04-20 09:06 | disposition home or self-care (01) ==
PROVIDERS: PCP Family Medicine; Visit Provider Internal Medicine Cardiovascular Disease
DX: R06.00 Dyspnea, unspecified (principal)
CPT/HCPCS: 78452; 93017; A9502; J2785

== ENCOUNTER 2022-08-03 12:10 | Outpatient (CLI) | payer MEDICARE, SELFPAY ==
--- NOTE | ~2022-08-03 | US_ITS ---
EXAMINATION: US renal BI DATE: 08/03/2022 12:43 INDICATION: Renal cyst seen on MRI TECHNIQUE: Multiple grayscale and Doppler ultrasound images of the kidneys were obtained. COMPARISON: 03/25/2016 FINDINGS: The right kidney measures 10.7 x 4.8 x 6.1 cm. The left kidney measures 12.8 x 4.2 x 6.8 cm . There is a 2.7 cm simple cyst of the left kidney.. The kidneys demonstrate normal parenchymal echog enicity. There is mild left hydronephrosis. The bladder is incompletely distended but otherwise unrem arkable in appearance. IMPRESSION: 1. 2.6 cm simple cyst of the left kidney. 2. Mild left hydronephrosis of unclear etiology. Reviewed, dictated and finalized at location A.
== END 2022-08-03 12:11 | disposition home or self-care (01) ==
PROVIDERS: PCP Family Medicine; Visit Provider Nurse Practitioner Family
DX: I10 Essential (primary) hypertension (principal); N28.1 Cyst of kidney, acquired; N13.30 Unspecified hydronephrosis
CPT/HCPCS: 76775

== ENCOUNTER 2022-11-28 09:17 | Outpatient (CLI) | payer MEDICARE, SELFPAY ==
--- NOTE | 2022-11-28 11:00 | NEURO_ITS ---
Impression: # Complains of numbness of hands. # Subtle Carpal Tunnel Syndrome bilaterally (sensory). # Normal needle/EMG exam. # Clinical correlation recommended. Motor Nerve Conduction Upper Extremities Median Nerve Conduction Velocity (m/sec) Terminal Latency (msec) Response Voltage(mV) Elbow-Wrist Wrist Elbow Wrist Right 58 3.4 1 1 Left 57 3.4 1 3 Ulnar Nerve Conduction Velocity (m/sec) Terminal Latency (msec) Response Voltage(mV) Above Elbow Below Elbow Wrist Above Elbow Below Elbow Wrist Right 60 2.7 5 6 Left 61 2.7 5 7 F-Wave Latency Median (ms) Ulnar (ms) Right 28.4 27.3 Left 28.3 27.4 Sensory Nerve Conduction Upper Extremities Median Nerve Stimulation Terminal Latency (msec) Wrist/Digit Response Voltage (uV) Wrist Right 3.9/4.0 25/6 Left 3.3/3.4 24/28 Ulnar Nerve Stimulation Terminal Latency (msec) Wrist/Digit Response Voltage (uV) Wrist Right 2.3 42 Left 2.2 24 Radial Nerve Terminal Latency (msec) Response Voltage(mV) Right 2.3 17 Left 2.0 20 Left Right Muscles Examined Fibrillation Fasciculation Scarcity Voltage Duration Left Right Left Right Left Right Left Right Left Right Deltoid Biceps X X Brachioradialis Triceps X X Pronator Teres X X Ext Indicis X X Ext Digitorum X X Abd Poll Brev X X 1st Dorsal Interosseus Paraspinals MTDD
== END 2022-11-28 09:18 | disposition home or self-care (01) ==
LOC: ANHNEURO 09:18
PROVIDERS: PCP Family Medicine; Visit Provider Orthopaedic Surgery
DX: G56.03 Carpal tunnel syndrome, bilateral upper limbs (principal)
CPT/HCPCS: 95886; 95911

== ENCOUNTER 2023-04-24 02:42 | Day surgery (SDC) | payer MEDICARE, SELFPAY ==
[2023-04-20 14:44] VITALS: BMI 31.1
--- NOTE | 2023-04-20 15:06 | PC.NURSE ---
Report to the Outpatient Waiting Room, entrance under the green pavilion located off [facility], at time __1130 on date 04/24/23 . Planned Procedure Time: ___1330____. Time changes happen often and if your time is changed the preop area will call you the afternoon before. - You and your visitor will be asked to self-screen and do not enter if you have any COVID symptoms. ONLY 2 VISITORS IN THE PREOP/POST OP AREAS - A mask is optional within the hospital at this time. Patients may have clear liquids (water, carbonated beverages, clear teas, apple juice) until 3 hours prior to surgery with a maximum of 20 ounces. - No food from midnight until time of surgery. Take ONLY the following medications with a SIP of water the morning of surgery: __CITALOPRAM, LORAZEPAM DO NOT STOP ANY OF YOUR OTHER PRESCRIPTION MEDICATIONS PRIOR TO SURGERY ?EXCEPT THE FOLLOWING Medications to discontinue per physician NAPROXEN Date to take last dose____04/21/23 Please no make-up, nail nepalese, hairspray, perfume, deodorant, or body powder the day of surgery. No jewelry (including any body piercings) or valuables the day of surgery, leave them at home. Please take a shower or bath the night before, or the morning of, surgery with an antibacterial soap. Wear comfortable, loose fitting clothing. - Jewelry must be removed prior to entering the operating room. Rings and piercings that are not removed may be cut off. - The hospital will not accept responsibility for valuables. - Please leave all valuables, including medications, at home the day of surgery. If you are going home after surgery, a licensed professional driver must drive you home. - NO public transportation without another adult if you receive anesthesia. - We recommend that an adult stay with you for 24 hours following discharge. - We also recommend that you do not drive, make important decision, drink alcoholic beverages, or take any drugs that were not prescribed by your health care provider for at least 24 hours after your discharge time. Follow any additional instructions given to you from your surgeon. If you or anyone in your household have experienced Covid symptoms in the past week, please notify your surgeon or the nurse liaison at the phone number below for possible testing. Telephone instructions given to __BA__and asked if any additional questions and then verbalized understanding. Patient advised to call surgeon office or pre surgery nurse liaison [phone] if any additional questions.
[2023-04-24] VITALS (9 sets, daily range): BP systolic 95–146; BP diastolic 64–88; PULSE 70–100; RESP 14–22; TEMP 36.5–36.8; O2SAT 95–100
--- NOTE | 2023-04-24 07:52 | WPDANESEPPF ---
Anes - Initial Pre Proc Eval Procedure: Operation Date: 04/24/23 13:30 Proposed Procedures p Rectal Examination under Anesthesia, Hemorrhoidectomy - Miriam Briones MD Date/Time: 04/24/23 07:52 Surgeon: Miriam Briones MD Pre Op Diagnosis: external hemorrhoid Patient Data Age: 52 Gender: M Height: 1.65 m Weight: 85 kg Allergies Allergy/AdvReac Type Severity Reaction Status Date / Time erythromycin base Allergy Severe Anaphylaxis Verified 04/24/23 11:35 Home Medications Medication Instructions Recorded Confirmed Type tizanidine 2 mg tablet 2 mg PO TID PRN muscle spasticity 02/01/22 04/20/23 Rx #90 tabs fluticasone propionate 50 2 spray intranasal DAILY #16 grams 07/14/22 04/24/23 Rx mcg/actuation nasal spray,suspension (Flonase Allergy Relief) citalopram 20 mg tablet 20 mg PO DAILY #90 tabs 02/06/23 04/24/23 Rx lansoprazole 30 mg capsule,delayed 30 mg PO DAILY #90 caps 02/09/23 04/24/23 Rx release lorazepam 0.5 mg tablet 0.5 mg PO BID PRN anxiety #60 tabs 02/09/23 04/24/23 Rx sildenafil 25 mg tablet (Viagra) 25 mg PO DAILY PRN sexual activity 02/09/23 04/20/23 Rx #30 tabs phentermine 37.5 mg capsule 37.5 mg PO DAILY #30 caps 02/28/23 04/24/23 Rx naproxen 500 mg tablet 500 mg PO BID PRN pain #60 tabs 03/08/23 04/24/23 Rx testosterone cypionate 200 mg/mL 200 mg IM .COMPLEX #4 vials 03/28/23 04/20/23 Rx intramuscular oil albuterol sulfate 90 mcg/actuation 1 puff inhalation Q4H PRN 04/04/23 04/24/23 Rx aerosol inhaler (ProAir HFA) bronchospasm #6.7 grams Patient hx anesthesia problems: none Family hx anesthesia problems: none Results Review: All pre-operative results and documents have been reviewed as part of the pre-operative evaluation. [facility] Past Medical History Medical History Abnormal CXR Anxiety Chronic neck and back pain Erectile dysfunction Esophageal stricture GERD (gastroesophageal reflux disease) History of esophageal dilatation 4 times, last in 1999 History of esophageal stricture 08/21/2018 History of wheezing Hypogonadism in male Mild episode of recurrent major depressive disorder Morbid obesity with BMI of 40.0-44.9, adult LISBET (obstructive sleep apnea) Perennial allergic rhinitis Surgical History Surgical History H/O excision of mass (~12/10/21) 3x3cm RUE mass 12/10/21 History of arthroplasty of both knees (~2004) 2004 to 2008 History of arthroscopy of shoulder (~2007) 2007 History of left inguinal hernia repair (~1989) 1989 History of lumbosacral spine surgery (~2004) 2004 History of right knee joint replacement (~2020) History of tonsillectomy History of vasectomy (~1995) 1995 Family History Family History Mother Lung cancer Other Diabetes mellitus Family history of coronary artery disease Family history of renal cell carcinoma Social History Social History Social History: Caffeine- tea Smoking status: Never smoker Second hand tobacco smoke exposure: No Alcohol intake: current Alcohol use details: occasionally Substance use: never Substance use type: does not use Lack of Food: Never True Current Housing: I Have Housing Concerned About Future Housing: No Difficulty Paying Gas/Electric Bills: YES Difficulty Paying for Meds: No Currently Unemployed: No Education: Trade/Vocational Certificate Difficulty w/ Childcare or Family Care: No Living arrangements: with family Occupation/Education: unemployed Additional occupation/education comments: Disabled Gender identity (if verbalized by the patient): Male Sexual Orientation (if Verbalized by the Patient): Straight or Heterosexual Spiritual care concerns: No Agree to blood products: Yes Anes - Eval Final PreProc
[2023-04-24] MEDS: ACETAMINOPHEN 500 MG TABLET 1000 MG PO (11:44)
[2023-04-24] MEDS: KETOROLAC 15 MG/ML VIAL (*BKC) IV PUSH (12:05)
[2023-04-24] MEDS: LACTATED RINGERS 1,000 ML 30 ML IV CONT (12:05)
--- NOTE | 2023-04-24 12:12 | WPDHPUPDATE1 ---
History and Physical Update Update Date/Time: 04/24/23 12:12 History and Physical has been reviewed, including an updated exam of the patient. There are NO changes in the patient's condition. Risks, benefits, and alternatives have been discussed and questions answered. Patient agrees to proceed with procedure.
[2023-04-24] MEDS: ceFAZolin 2 GM/D5W 50 ML 2 GM/50 ML BAG IVPB (13:50)
[2023-04-24] MEDS: LIDOCAINE 1% BUFFERED WITH 8.4% SODIUM BICARB 1 ML SYRINGE 20 ML INFILTRATE (13:52)
--- NOTE | 2023-04-24 14:12 | W.PM.PROC2 ---
Procedure Note - Detailed Date of Procedure 04/24/23 Pre-op Diagnosis external hemorrhoid Post-op Diagnosis Same Procedure Performed Exam under anesthesia, external hemorrhoidectomy involving left lateral and right anterior positions Surgeon Miriam Briones MD Anesthesia General Indications 61 y/o F c multiple external hemorrhoids c frequent flares causing pain, bleeding refractory to conservative measures. Findings multiple external hemorrhoids predominately in L lateral and R anterior Description of Procedure The patient was taken to the operating room and placed in the modified lithotomy position. After adequate induction of general anesthesia, the patient was prepped and draped in the normal sterile fashion. A time-out was then done to verify the patient's identity, as well as the procedure being performed. I began by doing a digital exam. There was noted to be multiple external hemorrhoids, however no internal hemorrhoids were noted. At this point, a bilateral pudendal block was done. Then used the lone Star retractor to further evaluate the anal canal as well as rectum, other than external hemorrhoids no other pathology was noted. I then began excising the external hemorrhoids using the hand-held LigaSure device. The hemorrhoids were noted to be in the left lateral and right anterior positions. Multiple hemorrhoids were excised using the LigaSure. The specimens will be sent to pathology for further review. Hemostasis was noted at all excision sites. I then placed a piece of Gelfoam covered with lidocaine jelly into the rectal vault. The patient tolerated the procedure and was extubated in the operating room postop. He will be transferred to the recovery room in stable condition. Implants Gelfoam covered with lidocaine jelly in the rectal vault Estimated Blood Loss 5 Drains No Packing Yes Pathology Yes Complications No immediate complications Condition Stable Disposition PACU [facility] Billing Surgery - Charge Forward: Surgery Billing
[2023-04-24] MEDS: fentaNYL CITRATE INJ (*CRX) 100 MCG/2 ML VIAL 25 MCG IV PUSH ×6 (14:21→14:49)
[2023-04-24] MEDS: oxyCODONE HCL (*CRX) 5 MG TAB IR PO (15:11)
== END 2023-04-24 15:45 | disposition home or self-care (01) ==
PROVIDERS: PCP Family Medicine; Visit Provider Surgery
PROC: (CPT 46250; principal; 2023-04-24 13:30)
DX: K64.4 Residual hemorrhoidal skin tags (principal); G47.33 Obstructive sleep apnea (adult) (pediatric); K21.9 Gastro-esophageal reflux disease without esophagitis; F33.0 Major depressive disorder, recurrent, mild; F41.9 Anxiety disorder, unspecified; E66.9 Obesity, unspecified; Z68.34 Body mass index [BMI] 34.0-34.9, adult; Z79.51 Long term (current) use of inhaled steroids
CPT/HCPCS: 46250; 88304; A9270; J0690; J1100; J1885; J2250; J2405; J2704; J3010; J7120

== ENCOUNTER 2023-05-25 14:17 | Outpatient (CLI) | payer MEDICARE, SELFPAY ==
[2023-05-25 14:52] LABS: Alanine Aminotransferase 28 U/L (6-50); Albumin Level 4.1 g/dL (3.5-5.1); Alkaline Phosphatase 61 U/L (38-126); Anion Gap 1 mmol/L (8-16); Aspartate Amino Transferase 25 U/L (17-59); Bilirubin,Total 0.5 mg/dL (0.2-1.3); Blood Urea Nitrogen 19 mg/dL (9-20); Calcium 8.9 mg/dL (8.4-10.2); Carbon Dioxide 33 mmol/L (22-30); Chloride 106 mmol/L (98-107); Cholesterol 139 mg/dL (0-200); Estimated Glomerular Filt Rate > 60; Glucose 84 mg/dL (65-110); HDL Direct 39 mg/dL; Potassium 4.5 mmol/L (3.4-5.0); Sodium 140 mmol/L (137-145); Triglycerides 105 mg/dL (<150)
[2023-05-25 15:03] LABS: LDL Cholesterol Direct 73 mg/dL
== END 2023-05-25 14:18 | disposition home or self-care (01) ==
LOC: ANHLAB 14:20
PROVIDERS: PCP Family Medicine; Visit Provider Internal Medicine Cardiovascular Disease
DX: E78.5 Hyperlipidemia, unspecified (principal)
CPT/HCPCS: 36415; 80053; 80061

== ENCOUNTER 2023-11-28 10:42 | Outpatient (CLI) | payer MEDICARE, SELFPAY ==
[2023-11-28 11:00] LABS: Basophils Absolute Auto 0.1 K/mm3 (0.0-0.1); Eosinophils Absolute Auto 0.1 K/mm3 (0-0.3); Eosinophils Percent Auto 2.7 % (0-4.4); Hematocrit 47.9 % (42.0-52.0); Hemoglobin 15.7 g/dL (14.0-18.0); Immature Granulocyte Absolute 0.08 K/mm3 (0.00-0.031); Immature Granulocyte Percent A 1.7 % (0-0.5); Lymphocytes Percent Auto 33.1 % (18.3-44.2); Mean Corpuscular HGB Conc 32.8 g/dl (32-36); Mean Corpuscular Hemoglobin 28.8 pg (26-34); Mean Corpuscular Volume 87.9 fl (80-100); Mean Platelet Volume 9.9 fl (7.4-10.4); Monocytes Absolute Auto 0.5 K/mm3 (0.1-0.6); Monocytes Percent Auto 11.2 % (2.6-8.5); Neutrophils Absolute Auto 2.4 K/mm3 (1.3-6.7); Neutrophils Percent Auto 50.3 % (45.5-73.1); Platelet Count Result 206 k/mm3 (150-375); Red Blood Count 5.45 M/mm3 (4.6-6.20); Red Cell Distribution Width 14.7 % (11.5-14.5); White Blood Count 4.8 K/mm3 (4.5-10.0)
[2023-12-02 10:46] LABS: Testosterone Free 34.5 pg/mL (35.0-155.0); Testosterone Total 276 ng/dL (250-1100)
== END 2023-11-28 10:43 | disposition home or self-care (01) ==
LOC: ANHLAB 10:44
PROVIDERS: PCP Family Medicine; Visit Provider Internal Medicine Hematology & Oncology
DX: D75.1 Secondary polycythemia (principal)
CPT/HCPCS: 36415; 84402; 84403; 85025

== ENCOUNTER 2024-03-25 07:59 | Outpatient (CLI) | payer MEDICARE, SELFPAY ==
--- NOTE | ~2024-03-25 | XR_ITS ---
EXAMINATION: XR humerus RT DATE: 03/25/2024 08:18 INDICATION: Strain and muscle, fascia, and tendon of right upper limb. Right shoulder pain. TECHNIQUE: 2 views of right humerus on 3 radiographs were obtained. COMPARISON: None. FINDINGS: Bone alignment is normal. No fracture. There is mild osteoarthritis of glenohumeral joint a nd moderate osteoarthritis of acromioclavicular joint. IMPRESSION: 1. Polyarticular osteoarthritis. Reviewed, dictated and finalized at location A.
--- NOTE | ~2024-03-25 | XR_ITS ---
EXAMINATION: XR shoulder RT min 2V DATE: 03/25/2024 08:18 INDICATION: Right shoulder pain. TECHNIQUE: 4 views of right shoulder were obtained. COMPARISON: None. FINDINGS: Bone alignment is normal. No fracture. There is mild osteoarthritis of glenohumeral joint a nd moderate osteoarthritis of acromioclavicular joint. IMPRESSION: 1. Polyarticular osteoarthritis. Reviewed, dictated and finalized at location A.
== END 2024-03-25 08:00 ==
PROVIDERS: PCP Family Medicine; Visit Provider Nurse Practitioner
DX: S46.211A Strain of muscle, fascia and tendon of other parts of biceps, right arm, initial encounter (principal); M25.511 Pain in right shoulder; M19.011 Primary osteoarthritis, right shoulder
CPT/HCPCS: 73030; 73060

== ENCOUNTER 2025-01-20 11:20 | Outpatient (CLI) | payer MEDICARE, SELFPAY ==
[2025-01-20 12:27] LABS: Cholesterol 145 mg/dL (0-200); HDL Direct 45 mg/dL; Triglycerides 87 mg/dL (<150)
[2025-01-20 12:39] LABS: LDL Cholesterol Direct 74 mg/dL
--- OUTSIDE RECORDS SUMMARY | 2025-01-20 12:52 | XMS_ITS | Encounter Summary ---
[facility] Organization [facility] Address [address] [place] [address] Care Team Providers Care Employee Relation Manager Name Role Phone Nathan Puentes MD Primary Care Provider Encounter Details Date Type Department Care Team (Latest Contact Info) Description 07/16/2007 Outpatient Historical [facility] H[facility]ctor Ayala MD [address] [place] [address] Follow-Up Examination, Following Other Surgery (Primary Dx) Social History Tobacco Use Types Packs/Day Years Used Date Smoking Tobacco: Never Assessed Sex and Gender Information Value Date Recorded Sex Assigned at Male 11/27/2023 8:24 PM REFRIGERATING OILER Legal Sex Male 5:16 AM REFRIGERATING OILER Gender Identity Male 11/27/2023 8:24 PM REFRIGERATING OILER Sexual Orientation Straight 11/27/2023 8: 24 PM REFRIGERATING OILER documented as of this encounter Plan of Treatment Not on file documented as of this encounter Visit Diagnoses Diagnosis Follow-up examination, following other surgery- Primary documented in this encounter Care Teams Employee Relation Manager Relationship Specialty Start Date End Date Nathan Puentes MD [address] [place] [phone] PCP - General Family Practice 05/26/23 documented as of this encounter
--- OUTSIDE RECORDS SUMMARY | 2025-01-20 12:52 | XMS_ITS | Clinical Summary ---
Author Organization [facility] Address [address] [place] [address] Care Team Providers Care Operative Supervisor Name Role Phone Nathan Puentes MD Primary Care Provider Allergies Active Allergy Reactions Criticality Noted Date Comments Erythromycin Rash Reaction: Rash, Medications amoxicillin-cla vulanate (AUGMENTIN) 875-125 mg per tablet Take 1 tablet by mouth 2 (two) times a day Active escitalopram oxalate (LEXAPRO ORAL) Take 10 mg by mouth daily Active fluticasone propionate (FLONASE) 50 mcg/actuation nasal spray Administer 1 spray into each nostril daily as needed 2 Active HYDROcodone-abigail taminophen (NORCO) 10-325 mg per tablet Take 1 tablet by mouth 3 (three) times a day as needed 2 Active lansoprazole (PREVACID) 30 mg capsule Take 1 capsule by mouth daily Active LORazepam (ATIVAN) 0.5 mg tablet Take 1 tablet by mouth daily as needed Active naloxone (NARCAN) 4 mg/actuation spray,non-aeros ol Apply 1 spray intranasally daily as needed 2 Active naproxen (NAPROSYN) 500 mg tablet Take 1 tablet/capsule by mouth 2 (two) times a day 2 Active tiZANidine (ZANAFLEX) 2 mg tablet Take 1 tablet by mouth daily as needed Active Active Problems No known active problems Surgical History Surgery Date Site/Laterality Comments OTHER SURGICAL HISTORY 2007 rotator cuff tear: rotator cuuf repair BACK SURGERY 2007 Back surgery KNEE ARTHROSCOPY 2008 Arthroscopy knee VASECTOMY 1996 Vasectomy HERNIA REPAIR 1991 Hernia repair Medical History Medical History Date Comments Hx Other Medical rotator cuff te ar Depression Depression Family History Medical History Relation Name Comments COPD Other Family history of COPD; Depression Other Family history of Depression; Diabetes type II Other Family hist ory of Diabetes -Type 2; Migraines Other Family history of Migraines; Relation Name Status Comments Other Social History Tobacco Use Types Packs/Day Years Used Date Smoking Tobacco: Never Smokeless Tobacco: Never Tobacco Cessation:Counseling Given: Not Answered Alcohol Use Standard Drinks/Week Comments Yes 0 (1 standard drink = 0.6 oz pur e alcohol) Sex and Gender Information Value Date Recorded Sex Assigned at Not on file Legal Sex Male 12:07 AM SHAPING MACHINE OPERATOR Gender Identity Not on file Sexual Orientation Not on file Obstetrics History Last Filed Vital Signs Vital Sign Reading Time Taken Comments Blood Pressure 148/91 12/09/2022 2:34 PM SHAPING MACHINE OPERATOR Pulse 103 12/09/2022 2:34 PM SHAPING MACHINE OPERATOR Temperature 36.6 C (97.8 F) 07/21/2022 10:36 AM CDT Respiratory Rate 18 07/21/2022 12:55 PM CDT Oxygen Saturation 94% 07/21/2022 12:55 PM CDT Inhaled Oxygen Concentration - - Weight 115.2 kg (254 lb) 12/09/2022 2:34 PM SHAPING MACHINE OPERATOR Height 160 cm (5' 3 ) 12/09/2022 2:34 PM SHAPING MACHINE OPERATOR Body Mass Index 44.99 12/09/2022 2:34 PM SHAPING MACHINE OPERATOR Plan of Treatment Health Maintenance Due Date Last Done Comments Colon Cancer Screening-Colonoscopy 1968 Depression Screening 1968 Hepatitis C Screening 1968 Prostate Cancer Screening-PSA 1968 Hepatitis B Screening 1986 Regular Well Visit/Exam 18-64 1986 Zoster Vaccine (1 of 2) 2018 Influenza Vaccine (#1) 2024 08/17/2020 DTaP/Tdap/Td Vaccine (2 - Td or Tdap) 08/15/2032 08/15/2022 Pneumococcal vaccine <65 Aged Out No longer eligible based on patient's age to complete this topic Insurance MEDICARE MEDICARE MEDICARE Care Teams Operative Supervisor Relationship Specialty Start Date End Date Nathan Puentes MD PCP - General Family Practice 12/09/22
--- OUTSIDE RECORDS SUMMARY | 2025-01-20 12:52 | XMS_ITS | Referral Summary ---
Author Organization [facility] Address [address] [place] [address] Care Team Providers Care Freight Claim Investigator Name Role Phone Nathan Puentes MD Primary [...] Active Active Problems No known active problems Social History Tobacco Use Types Packs/Day Years Used Date Smoking Tobacco: Never Smokeless Tobacco: Never Tobacco Cessation:Counseling Given: Not Answered Alcohol Use Standard Drinks/Week Comments Yes 0 (1 standard drink = 0.6 oz pur e alcohol) Sex and Gender Information Value Date Recorded Sex Assigned at Not on file Legal Sex Male 12:07 AM LOCK FITTER Gender Identity Not on file Sexual Orientation Not on file Last Filed Vital Signs Vital Sign Reading Time Taken Comments Blood Pressure 148/91 12/09/2022 2:34 PM LOCK FITTER Pulse 103 12/09/2022 2:34 PM LOCK FITTER Temperature 36.6 C (97.8 F) 07/21/2022 10:36 AM CDT Respiratory Rate 18 07/21/2022 12:55 PM CDT Oxygen Saturation 94% 07/21/2022 12:55 PM CDT Inhaled Oxygen Concentration - - Weight 115.2 kg (254 lb) 12/09/2022 2:34 PM LOCK FITTER Height 160 cm (5' 3 ) 12/09/2022 2:34 PM LOCK FITTER Body Mass Index 44.99 12/09/2022 2:34 PM LOCK FITTER Plan of Treatment Not on file Insurance MEDICARE MEDICARE MEDICARE Care Teams Freight Claim Investigator Relationship Specialty Start Date End Date Nathan Puentes MD PCP - General Family Practice 12/09/22
--- OUTSIDE RECORDS SUMMARY | 2025-01-20 12:52 | XMS_ITS | Clinical Summary ---
Author Organization [facility] Address [address] [place] [address] Care Team Providers Care Fur Dry Cleaner Hand Name Role Phone Nathan Puentes MD Primary Care Provider Allergies Active Allergy Reactions Criticality Noted Date Comments Erythromycin Rash Low 11/16/2021 Reaction: Rash, Medications citalopram (CeleXA) 20 mg tablet citalopram 20 mg tablet Active lansoprazole (PREVACID) 30 mg Capsule, Delayed Release(E.C.) lansoprazole 30 mg capsule,delayed release Active LORazepam (ATIVAN) 0.5 mg tablet lorazepam 0.5 mg tablet Active naproxen (NAPROSYN) 500 mg tablet naproxen 500 mg tablet Active tiZANidine (ZANAFLEX) 2 mg Tablet tizanidine 2 mg tablet Active predniSONE 10 mg Tablets, Dose Pack prednisone 10 mg tablets in a dose pack Take 1 tab by mouth, 3 times a day for 3 daysTake 1 tab by mouth 2 times a day for 2 daysTake 1 tab by mouth once a day for 1 day Active busPIRone (BUSPAR) 10 mg tablet Take 10 mg by mouth 2 times daily as needed. 3 Active Phentermine 37.5 mg Capsule Take 1 Capsule by mouth daily. 3 Active testosterone cypionate (DEPO-TESTOSTER ONE) 200 mg/mL Oil ADMINISTER 1 ML IN THE MUSCLE EVERY 3 WEEKS 3 Active Active Problems Problem Noted Date Diagnosed Date Erythrocytosis 11/16/2021 Encounters Date Type Department Care Team Description 10/29/2024 External Device Data ST[facility] ABSTRACTION Provider, Abstract from Last 3 Months Family History Relation Name Status Comments Brother Alive Daughter Alive Father Mother Sister Alive Son Alive Social History Tobacco Use Types Packs/Day Years Used Date Smoking Tobacco: Never Smokeless Tobacco: Never Tobacco Cessation:Counseling Given: Not Answered Alcohol Use Standard Drinks/Week Comments Yes 0 (1 standard drink = 0.6 oz pur e alcohol) Sex and Gender Information Value Date Recorded Sex Assigned at Male 11/27/2023 8:24 PM PACKAGING DESIGNER Legal Sex Male 5:16 AM PACKAGING DESIGNER Gender Identity Male 11/27/2023 8:24 PM PACKAGING DESIGNER Sexual Orientation Straight 11/27/2023 8: 24 PM PACKAGING DESIGNER Last Filed Vital Signs Vital Sign Reading Time Taken Comments Blood Pressure 139/84 11/28/2023 11:17 AM PACKAGING DESIGNER Pulse 83 11/28/2023 11:17 AM PACKAGING DESIGNER Temperature 36.6 C (97.9 F) 11/28/2023 11:17 AM PACKAGING DESIGNER Respiratory Rate 14 11/28/2023 11:17 AM PACKAGING DESIGNER Oxygen Saturation 97% 11/28/2023 11:17 AM PACKAGING DESIGNER Inhaled Oxygen Concentration - - Weight 91.2 kg (201 lb) 11/28/2023 11:17 AM PACKAGING DESIGNER Height 165.1 cm (5' 5 ) 05/19/2022 3:30 PM CDT Body Mass Index 33.45 05/19/2022 3:30 PM CDT Plan of Treatment Health Maintenance Due Date Last Done Comments DTAP/TDAP/TD VACCINES (1 - Tdap) 1987 HEPATITIS B VACCINES (1 of 3 - 19+ 3-dose series) 05/24 Traditional Medicare (ACO) Annual Wellness Visit 06/15 FIT-DNA Q 3 years 2013 FIT/FOBT Q 1 year 2013 Flex Sig/CT Colonography Q 5 years 2013 ZOSTER VACCINE (1 of 2) 2018 INFLUENZA VACCINE (#1) 2024 COLORECTAL SCREENING 09/10/2030 09/10/2020 Colorectal Cancer Screening 09/10/2030 Insurance MEDICARE PART A AND B Care Teams Fur Dry Cleaner Hand Relationship Specialty Start Date End Date Nathan Puentes MD [address] [place] [address] PCP - General Family Practice 05/26/23
--- OUTSIDE RECORDS SUMMARY | 2025-01-20 12:52 | XMS_ITS | Encounter Summary ---
Author Organization [facility] Address [address] [place] [address] Care Team Providers Care Manager Retention Name Role Phone Nathan Puentes MD Primary Care Provider Encounter Details Date Type Department Care Team (Latest Contact Info) Description 05/30/2007 Outpatient Historical [facility] Héctor Aylaa MD [address] [place] [address] Follow-Up Examination, Following Other Surgery (Primary Dx) Social History Tobacco Use Types Packs/Day Years Used Date Smoking Tobacco: Never Assessed Sex and Gender Information Value Date Recorded Sex Assigned at Male 11/27/2023 8:24 PM LIQUOR RECTIFIER Legal Sex Male 5:16 AM LIQUOR RECTIFIER Gender Identity Male 11/27/2023 8:24 PM LIQUOR RECTIFIER Sexual Orientation Straight 11/27/2023 8: 24 PM LIQUOR RECTIFIER documented as of this encounter Plan of Treatment Not on file documented as of this encounter Visit Diagnoses Diagnosis Follow-up examination, following other surgery- Primary documented in this encounter Care Teams Manager Retention Relationship Specialty Start Date End Date Nathan Puentes MD [address] [place] [phone] PCP - General Family Practice 05/26/23 documented as of this encounter
--- OUTSIDE RECORDS SUMMARY | 2025-01-20 12:53 | XMS_ITS | Encounter Summary ---
Author Organization [facility] Address [address] [place] [address] Care Team Providers Care Mixer Driver Name Role Phone Nathan Puentes MD Primary Care Provider Encounter Details Date Type Department Care Team (Late st Contact Info) Description 12/27/2006 Outpatient Historical [facility] Blood Flow [address] [place] [address] Paul Vizcaino MD [address] [place], [place] [id number] Social History Tobacco Use Types Packs/Day Years Used Date Smoking Tobacco: Never Assessed Sex and Gender Information Value Date Recorded Sex Assigned at Male 11/27/2023 8:24 PM LEGAL SPECIALIST Legal Sex Male 5:16 AM LEGAL SPECIALIST Gender Identity Male 11/27/2023 8:24 PM LEGAL SPECIALIST Sexual Orientation Straight 11/27/2023 8: 24 PM LEGAL SPECIALIST documented as of this encounter Plan of Treatment Not on file documented as of this encounter Visit Diagnoses Not on filedocumented in this encounter Care Teams Mixer Driver Relationship Specialty Start Date End Date Nathan Puentes MD [address] [place] [phone] PCP - General Family Practice 05/26/23 documented as of this encounter
--- OUTSIDE RECORDS SUMMARY | 2025-01-20 12:53 | XMS_ITS | Encounter Summary ---
Author Organization [facility] Address [address] [place] [address] Care Team Providers Care Melt Superintendant Name Role Phone Nathan Puentes MD Primary Care Provider Encounter Details Date Type Department Care Team (Latest Contact Info) Description 01/24/2007 Outpatient Historical [facility] Héctor Ayala MD [address] [place] [address] Arthrodesis Status (Primary Dx) Social History Tobacco Use Types Packs/Day Years Used Date Smoking Tobacco: Never Assessed Sex and Gender Information Value Date Recorded Sex Assigned at Male 11/27/2023 8:24 PM FLORIST'S DECORATOR Legal Sex Male 5:16 AM FLORIST'S DECORATOR Gender Identity Male 11/27/2023 8:24 PM FLORIST'S DECORATOR Sexual Orientation Straight 11/27/2023 8 :24 PM FLORIST'S DECORATOR documented as of this encounter Plan of Treatment Not on file documented as of this encounter Visit Diagnoses Diagnosis Arthrodesis status- Primary documented in this encounter Care Teams Melt Superintendant Relationship Specialty Start Date End Date Nathan Puentes MD [address] [place] [phone] PCP - General Family Practice 05/26/23 documented as of this encounter
--- OUTSIDE RECORDS SUMMARY | 2025-01-20 12:53 | XMS_ITS | Encounter Summary ---
Author Organization [facility] Address [address] [place] [address] Care Team Providers Care Alarm Installation Technician Name Role Phone Nathan Puentes MD Primary Care Provider Encounter Details Date Type Department Care Team (Latest Contact Info) Description 11/29/2006 Outpatient Historical [facility] Héctor Ayala MD [address] [place] [address] Follow-Up Examination, Following Other Surgery (Primary Dx) Social History Tobacco Use Types Packs/Day Years Used Date Smoking Tobacco: Never Assessed Sex and Gender Information Value Date Recorded Sex Assigned at Male 11/27/2023 8:24 PM SOUBRETTE Legal Sex Male 5:16 AM SOUBRETTE Gender Identity Male 11/27/2023 8:24 PM SOUBRETTE Sexual Orientation Straight 11/27/2023 8: 24 PM SOUBRETTE documented as of this encounter Plan of Treatment Not on file documented as of this encounter Visit Diagnoses Diagnosis Follow-up examination, following other surgery- Primary documented in this encounter Care Teams Alarm Installation Technician Relationship Specialty Start Date End Date Nathan Puentes MD [address] [place] [phone] PCP - General Family Practice 05/26/23 documented as of this encounter
--- OUTSIDE RECORDS SUMMARY | 2025-01-20 12:53 | XMS_ITS | Encounter Summary ---
Author Organization [facility] Address [address] [place] [address] Care Team Providers Care Putaway Driver Name Role Phone Nathan Puentes MD Primary Care Provider Encounter Details Date Type Department Care Team (Latest Contact Info) Description 12/27/2006 Outpatient Historical [facility] Héctor Ayala MD [address] [place] [address] Follow-Up Examination, Following Other Surgery (Primary Dx) Social History Tobacco Use Types Packs/Day Years Used Date Smoking Tobacco: Never Assessed Sex and Gender Information Value Date Recorded Sex Assigned at Male 11/27/2023 8:24 PM POWER DISTRIBUTOR Legal Sex Male 5:16 AM POWER DISTRIBUTOR Gender Identity Male 11/27/2023 8:24 PM POWER DISTRIBUTOR Sexual Orientation Straight 11/27/2023 8: 24 PM POWER DISTRIBUTOR documented as of this encounter Plan of Treatment Not on file documented as of this encounter Visit Diagnoses Diagnosis Follow-up examination, following other surgery- Primary documented in this encounter Care Teams Putaway Driver Relationship Specialty Start Date End Date Nathan Puentes MD [address] [place] [phone] PCP - General Family Practice 05/26/23 documented as of this encounter
--- OUTSIDE RECORDS SUMMARY | 2025-01-20 12:53 | XMS_ITS | Encounter Summary ---
Author Organization [facility] Address [address] [place] [address] Care Team Providers Care Agricultural Commodities Grader Name Role Phone Nathan Puentes MD Primary Care Provider Encounter Details Date Type Department Care Team (Latest Contact Info) Description 02/21/2007 Outpatient Historical [facility] Héctor Ayala MD [address] [place] [address] Follow-Up Examination, Following Other Surgery (Primary Dx) Social History Tobacco Use Types Packs/Day Years Used Date Smoking Tobacco: Never Assessed Sex and Gender Information Value Date Recorded Sex Assigned at Male 11/27/2023 8:24 PM CAPTION WRITER Legal Sex Male 5:16 AM CAPTION WRITER Gender Identity Male 11/27/2023 8:24 PM CAPTION WRITER Sexual Orientation Straight 11/27/2023 8: 24 PM CAPTION WRITER documented as of this encounter Plan of Treatment Not on file documented as of this encounter Visit Diagnoses Diagnosis Follow-up examination, following other surgery- Primary documented in this encounter Care Teams Agricultural Commodities Grader Relationship Specialty Start Date End Date Nathan Puentes MD [address] [place] [phone] PCP - General Family Practice 05/26/23 documented as of this encounter
--- OUTSIDE RECORDS SUMMARY | 2025-01-20 12:53 | XMS_ITS | Encounter Summary ---
Author Organization [facility] Address [address] [place] [address] Care Team Providers Care Career Services Officer Name Role Phone Nathan Puentes MD Primary Care Provider Encounter Details Date Type Department Care Team (Latest Contact Info) Description 04/18/2007 Outpatient Historical [facility] Héctor Ayala MD [address] [place] [address] Unspecified Backache (Primary Dx) Social History Tobacco Use Types Packs/Day Years Used Date Smoking Tobacco: Never Assessed Sex and Gender Information Value Date Recorded Sex Assigned at Male 11/27/2023 8:24 PM EPILEPSY PHYSICIAN Legal Sex Male 5:16 AM EPILEPSY PHYSICIAN Gender Identity Male 11/27/2023 8:24 PM EPILEPSY PHYSICIAN Sexual Orientation Straight 11/27/2023 8: 24 PM EPILEPSY PHYSICIAN documented as of this encounter Plan of Treatment Not on file documented as of this encounter Visit Diagnoses Diagnosis Backache, unspecified- Primary documented in this encounter Care Teams Career Services Officer Relationship Specialty Start Date End Date Nathan Puentes MD [address] [place] [phone] PCP - General Family Practice 05/26/23 documented as of this encounter
--- OUTSIDE RECORDS SUMMARY | 2025-01-20 12:53 | XMS_ITS | Encounter Summary ---
Author Organization [facility] Address [address] [place] [address] Care Team Providers Care Exhaust Equipment Operator Name Role Phone Nathan Puentes MD Primary Care Provider Encounter Details Date Type Department Care Team (Latest Contact Info) Description 11/10/2006 Inpatient Historical [facility] Héctor Ayala MD [address] [place] [address] Disc Displacement (Primary Dx) Social History Tobacco Use Types Packs/Day Years Used Date Smoking Tobacco: Never Assessed Sex and Gender Information Value Date Recorded Sex Assigned at Male 11/27/2023 8:24 PM CASE MANAGERS Legal Sex Male 5:16 AM CASE MANAGERS Gender Identity Male 11/27/2023 8:24 PM CASE MANAGERS Sexual Orientation Straight 11/27/2023 8: 24 PM CASE MANAGERS documented as of this encounter Plan of Treatment Not on file documented as of this encounter Procedures Procedure Name Priority Date/Time Associated Diagnosis Comments HEMOGLOBIN AND HEMATOCRIT Routine 11/11/2006 5:45 AM CASE MANAGERS HEMOGLOBIN AND HEMATOCRIT Routine 11/10/2006 7:05 PM CASE MANAGERS HEMOGLOBIN AND HEMATOCRIT Routine 11/07/2006 12:09 PM CASE MANAGERS documented in this encounter Results * (ABNORMAL) HEMOGLOBIN AND HEMATOCRIT (11/11/2006 5:45 AM CASE MANAGERS) HEMOGLOBIN 11.8(L) 13.6 - 16.5 g/dL INTERFACE SYSTEM HEMATOCRIT 35.8(L) 40.0 - 48.0 % INTERFACE SYSTEM 11/11/2006 5:45 AM CASE MANAGERS us Héctor Ayala MD HEMATOLOGY ORDERABLES Edited Performing Organization Address [facility] Phone Number INTERFACE SYSTEM Refer to clinic/hospital department * (ABNORMAL) HEMOGLOBIN AND HEMATOCRIT (11/10/2006 7:05 PM CASE MANAGERS) HEMOGLOBIN 13.2(L) 13.6 - 16.5 g/dL INTERFACE SYSTEM HEMATOCRIT 39.8(L) 40.0 - 48.0 % INTERFACE SYSTEM 11/10/2006 7:05 PM CASE MANAGERS us Héctor Ayala MD HEMATOLOGY ORDERABLES Edited Performing Organization Address [facility] Phone Number INTERFACE SYSTEM Refer to clinic/hospital department * HEMOGLOBIN AND HEMATOCRIT (11/07/2006 12:09 PM CASE MANAGERS) HEMOGLOBIN 16.3 13.6 - 16.5 g/dL INTERFACE SYSTEM HEMATOCRIT 47.3 40.0 - 48.0 % INTERFACE SYSTEM 11/07/2006 12:0 9 PM CASE MANAGERS us Héctor Ayala MD HEMATOLOGY ORDERABLES Edited Performing Organization Address [facility] Phone Number INTERFACE SYSTEM Refer to clinic/hospital department documented in this encounter Visit Diagnoses Diagnosis Displacement of intervertebral disc, site unspecified, without myelopathy- Primary documented in this encounter Care Teams Exhaust Equipment Operator Relationship Specialty Start Date End Date Nathan Puentes MD [address] [place] [phone] PCP - General Family Practice 05/26/23 documented as of this encounter
== END 2025-01-20 11:21 | disposition home or self-care (01) ==
PROVIDERS: PCP Family Medicine; Visit Provider Internal Medicine Cardiovascular Disease
DX: E78.5 Hyperlipidemia, unspecified (principal)
CPT/HCPCS: 36415; 80061

== ENCOUNTER 2025-01-27 14:36 | Outpatient (CLI) | payer MEDICARE, SELFPAY ==
--- NOTE | ~2025-01-27 | US_ITS ---
EXAM: RENAL ULTRASOUND HISTORY: N28.1 - Cyst of kidney, acquired COMPARISON: 08/03/2022 FINDINGS: RIGHT KIDNEY: 11.9 x 7.2 x 6.1 cm. The parenchyma of the right kidney is increased in echogenicity. No hydronephrosis or bulky renal calculi. Multiple rounded anechoic avascular foci detected. The largest within the lower pole measures 19 mm in greatest dimension. LEFT KIDNEY: 13.2 x 6.8 x 5.2 cm No hydronephrosis or renal calculi. A single rounded avascular anechoic focus is present within the interpolar region of the left kidney measuring 34 mm in greatest dimension, increased in size from previous studies. This focus is unchang ed in morphology. The remainder of the parenchyma of the left kidney is otherwise unremarkable in echogenicity. BLADDER: The bladder is distended appropriately, with both ureteral jets visualized. IMPRESSION: No hydronephrosis or renal calculi. Cyst within the left kidney, stable in morphology but increased in size from previous examination per formed approximately 3 years earlier. Reviewed, dictated and finalized at location A. IMPRESSION: No hydronephrosis or renal calculi. Cyst within the left kidney, stable in morphology but increased in size from pr evious examination performed approximately 3 years earlier.
--- OUTSIDE RECORDS SUMMARY | 2025-01-27 16:48 | XMS_ITS | Encounter Summary ---
Author Organization [facility] Address [address] [place] [address] Care Team Providers Care Mobile Application Tester Name Role Phone Nathan Puentes MD Primary Care Provider Encounter Details Date Type Department Care Team (Latest Contact Info) Description 01/24/2007 Outpatient [facility] Héctor Ayala MD [address] [place] [address] Arthrodesis Status (Primary Dx) Social History Tobacco Use Types Packs/Day Years Used Date Smoking Tobacco: Never Assessed Sex and Gender Information Value Date Recorded Sex Assigned at Male 11/27/2023 8:24 PM POT OPERATOR Legal Sex Male 5:16 AM POT OPERATOR Gender Identity Male 11/27/2023 8:24 PM POT OPERATOR Sexual Orientation Straight 11/27/2023 8 :24 PM POT OPERATOR documented as of this encounter Plan of Treatment Not on file documented as of this encounter Visit Diagnoses Diagnosis Arthrodesis status- Primary documented in this encounter Care Teams Mobile Application Tester Relationship Specialty Start Date End Date Nathan Puentes MD [address] [place] [phone] PCP - General Family Practice 05/26/23 documented as of this encounter
--- OUTSIDE RECORDS SUMMARY | 2025-01-27 16:48 | XMS_ITS | Encounter Summary ---
Author Organization [facility] Address [address] [place] [address] Care Team Providers Care Mill Work Name Role Phone Nathan uPentes MD Primary Care Provider Encounter Details Date Type Department Care Team (Latest Contact Info) Description 12/27/2006 Outpatient Historical [facility] Héctor Ayala MD [address] [place] [address] Follow-Up Examination, Following Other Surgery (Primary Dx) Social History Tobacco Use Types Packs/Day Years Used Date Smoking Tobacco: Never Assessed Sex and Gender Information Value Date Recorded Sex Assigned at Male 11/27/2023 8:24 PM MANAGER LAND Legal Sex Male 5:16 AM MANAGER LAND Gender Identity Male 11/27/2023 8:24 PM MANAGER LAND Sexual Orientation Straight 11/27/2023 8: 24 PM MANAGER LAND documented as of this encounter Plan of Treatment Not on file documented as of this encounter Visit Diagnoses Diagnosis Follow-up examination, following other surgery- Primary documented in this encounter Care Teams Mill Work Relationship Specialty Start Date End Date Nathan Puentes MD [address] [place] [phone] PCP - General Family Practice 05/26/23 documented as of this encounter
--- OUTSIDE RECORDS SUMMARY | 2025-01-27 16:48 | XMS_ITS | Data Portability ---
Author Organization [place] - [facility], Main Office Address [address] [place] [address] Care Team Providers Care Sprayer Machine Name Role Phone HOLDEN DUMONT Primary Care Provider HOLDEN DUMONT Referring Provider Assessment Encounter Date Assessment Date Assessment LastModified by Organization Details LastModified Time 06/20/2023 06/20/2023 Patient returns status post rotator cuff repair right. He is overusing his arm. Thinks he may have gotten infected however I do not see any obvious evidence today does have some fluid in the area I think he has been overusing it. Recommend he back off on his activity passive range of motion only I will see him back in 2-3 weeks for follow-up to reassess that point. He did want some more pain medicine will refill that for his request. [email or web address] Not available 06/20/2023 10:15:51 07/11/2023 07/11/2023 Patient returns status post rotator cuff repair right. He looks great pain is gone he is moving the shoulder well neurologically he is intact. Will begin active and active assisted motion at 2 weeks follow up a month to see Ancelmo Hoyt. If he has any changes or problems he is instructed to call otherwise we will follow along. [email or web address] Not available 07/11/2023 10:05:38 08/22/2023 08/22/2023 The patient is status post right shoulder rotator cuff repair he is now about 2 months status post surgery. He is waiting for physical therapy to start for gentle strengthening I have advised him he can do light resistance with rubber bands start to slowly wean back into his therapy regimen he knows what to do from his previous surgery. I have advised him to still go to formal therapy I will see him back in a month to see how things are going he voiced understanding agrees above plan he is cautioned not to overdo it he feels very good I do not want him to overdo it and disrupt the repair or aggravate his shoulder he voiced understanding agrees above plan on that as well. Not available 08/22/2023 10:09:16 10/03/2023 10/03/2023 The patient is doing well status post rotator cuff repair right shoulder today's exam shows only minimal discomfort I have advised him to continue with his physical therapy on his own at home he is done with formal physical therapy has been 4 months since his surgery he is doing quite well had a nice result he is back to doing his normal daily activities. He can be dismissed he voiced understanding and agrees with the above plan he will call for any further problems difficulties or questions. Not available 10/03/2023 10:30:11 11/14/2023 11/14/2023 Patient has left knee pain mostly medially x-rays show some mild osteoarthritis in the medial compartment and patellofemoral articulation. He has had no specific injury concern would be for meniscal pathology possibly but his exam findings were not overwhelming I think we will try a course of conservative measures to begin with. We talked about treatment options today in detail he wanted to try a course of oral prednisone and steroid injection therefore under sterile conditions I injected the patient's left knee joint in the office with 4 cc 0.5% bupivacaine and 20 mg of Kenalog. Patient tolerated the procedure well. He will stop the naproxen while he is on the prednisone then resume later. he will give it some time see how things go. As far as his right knee goes he has a little bit of patellar crunch likely due to scarring behind the kneecap. Dr. Perez has previously spoken to the patient about possibly scoping the knee if this becomes a big issue he states for now he is going to live with this. Otherwise his x-rays look good. I will see him back in 6 weeks or so to see what impact treatment has had for his left knee if his symptoms continue we will get an MRI scan. He voiced understanding agrees above plan call for any further problems difficulties or questions. Not available 11/14/2023 10:50:26 Plan of Treatment Reminders Order Date Submit Date Provider Last Modified By Organization Details Last Modified Time Details Appointments None recorded. Lab None recorded. Referral physical therapist referral - Please contact patient to schedule 2 weeks from 07/11/23[address] [facility], [address], [place], [address], 3 10:30:41 Procedures injection/ aspiration joint/burs a (PROC) 2023 024 [email or web address] In-Office Order, Internal Use Only DO Not Attach Compendium DO Not Attach Compendium, Do Not Delete/merge, [id number] 4 10:12:34 Surgeries None recorded. Imaging XR, knee 2023 024 [email or web address] [facility], [address] [facility] [facility], [place], [address], 4 11:33:51 Medication Orders bupivacain e HCl 0.5 % (5 mg/mL) injection solution 2023 024 [email or web address] [facility] #[id number], [address], [place], [place], [id number], 4 11:17:34 Kenalog 10 mg/mL suspension for injection 2023 024 [email or web address] [facility] #02265, [address], [place], [place], [id number], 4 11:17:34 prednisone 10 mg tablets in a dose pack 2023 024 [facility] #[facility]302, [address], [place], [place], [id number], 4 11:17:34 hydrocodon e 5 mg-acetami nophen 325 mg tablet 2022 023 [email or web address] [facility] #80610, [address], [place], [place], [id number], 3 10:12:49 Patient TargetsNo targets recorded. Patient InstructionsNo instructions recorded. Reason for Referral Physical Therapist Referral for Full thickness rotator cuff tear Please contact patient to schedule 2 weeks from 07/11/23 Referring Physician: Sam Perez, Orthopedic Surgery, Encounter Date: 07/11/2023 Results Created Date Observation Date Name Description Value Unit Range Abnormal Flag Note LastModifiedBy Organization Detail LastModifiedTime 11/14/19 24 XR, knee No observ ation record ed. [email or web address] [facility] [address], [place], [address], 11/14/2023 10:51:46 Result Notes None recorded. Problems Name Problem SNOMED Code Status Onset Date Resolution Date Notes Provider Name and Address Organization Details Recorded Time History of right total knee replacemen t 1286786395337 102 Active 2020 Not Available [facility] 3 00:59:09 History of total knee arthroplas ty 5125698301275 Active 2020 Not Available [facility] 3 00:59:09 Bilateral carpal tunnel syndrome 7252599511410 9101 Active 2022 Not Available [facility] 3 00:59:09 Disorder of trunk 383609424 Active Not Available [facility] 3 00:59:09 Pain of right shoulder joint 7834282418825 9100 Active 2021 Not Available [facility] 3 00:59:09 Spinal stenosis of lumbar region 31903394 Active 2021 Not Available [facility] 3 00:59:09 Partial thickness rotator cuff tear 439988828 Active 2021 Not Available [facility] 3 00:59:09 Partial thickness rotator cuff tear 594210047 Active 2021 Not Available [facility] 3 00:59:09 Full thickness rotator cuff tear 159627489 Active 2022 Not Available [facility] 3 00:59:09 Full thickness rotator cuff tear 503056090 Active 2022 Not Available [facility] 3 00:59:09 Osteoarthr itis of right hip joint 7221625720317 07 Active 2021 Not Available [facility] 3 00:59:09 Cervical spondylosi s 987201326 Active Not Available [facility] 3 00:59:09 Pain of right knee joint 4535691592665 00 Active 2021 Not Available [facility] 3 00:59:09 Anxiety 16367740 Active 2016 Not Available [facility] 3 00:59:10 Cervical radiculopa thy 07676740 Active Not Available [facility] 3 00:59:10 Acid reflux 184324005 Active 2016 Not Available [facility] 3 00:59:10 Neck pain 77999543 Active Not Available [facility] 3 00:59:10 Spinal stenosis in cervical region 09895391 Active Not Available [facility] 3 00:59:10 Pain of left knee joint 6110198076602 07 Active 2023 Aury Dhillon CNA null, [place] - [facility] 4 10:10:55 Osteoarthr itis of left knee joint 4047795016944 09 Active 2023 KALYANI Godoy [address], [place], [address] , [facility] [employer] [facility] 4 10:52:03 Problem Notes None recorded. Procedures Surgical History None recorded. Imaging Results Imaging Date Name Status LastModified by Organiz ation Details LastModified Time 11/14/2023 XR, knee completed [email or web address] [facility] [address] [facility], [place], [address], 11/14/2023 10:51:46 Procedure Notes None recorded. Medical Equipment None Reported. Allergies Allergen ID Allergen Name Allergen Category Reaction Reaction Severity Criticality Documentation Date Start Date Code Code System Note Provider Name and Address Organization Details Recorded Time 1594 erythromy gt medicatio n facial swelling Not available Not available 12/21/2022 4053 RxNorm throa LUIS ANGEL Hopper, [place] [facility] 10:11:23 Medications Name Sig Start Date Stop Date Status Note LastModified by Organization Details LastModified Time cyclobenz aprine 10 mg tablet 09/26 completed Not Available Not Available Not Available amoxicill in 500 mg capsule 09/26 completed Not Available Not Available Not Available fluconazo le 100 mg tablet TAKE 2 TABLETS BY MOUTH DAILY 10/03 completed Not Available Not Available Not Available Xylocaine -MPF 20 mg/mL (2 %) injection solution Take 80 mg by injectio n route. 09/26 completed Not Available Not Available Not Available bupropion HCl SR 150 mg tablet,12 hr sustained -release 08/17 completed Not Available Not Available Not Available neomycin- polymyxin -hydrocor t 3.5 mg/mL-10, 000 unit/mL-1 % ear solution 09/26 completed Not Available Not Available Not Available prednison e 10 mg tablet TAKE 1 TABLET TWICE DAILY active Not Available Not Available No t Available nabumeton e 750 mg tablet Take 1 tablet twice a day by oral route. 09/28 completed Not Available Not Available Not Available tizanidin e 2 mg tablet TAKE 1 TABLET BY MOUTH THREE TIMES DAILY NEEDED FOR MUSCLE SPASMS active Not Available Not Available No t Available clindamyc in HCl 300 mg capsule TK 1 C PO Q 6 H FOR 10 DAYS 09/25 completed Not Available Not Available Not Available citalopra m 40 mg tablet TAKE 1 TABLET BY MOUTH DAILY active Not Available Not Available No t Available azithromy gt 250 mg tablet TAKE 2 TABLETS BY MOUTH FOR 1 DAY THEN TAKE 1 TABLET BY MOUTH DAILY FOR 4 DAYS 10/03 completed Not Available Not Available Not Available hydrocodo ne 5 mg-acetam inophen 325 mg tablet TAKE 1 TABLET BY MOUTH EVERY 6 HOURS NEEDED FOR PAIN 10/03 completed Not Available Not Available Not Available bupivacai ne HCl 0.5 % (5 mg/mL) injection solution Take 20 mg by injectio n route. 2023 active Not Available Not Available Not Avai lable prednison e 20 mg tablet Take 1 tablet by oral route as directed . 09/26 completed Not Available Not Available Not Available phentermi ne 37.5 mg tablet TAKE 1 TABLET DAILY IN THE MORNING 08/17 completed Not Available Not Available Not Available sulfameth oxazole 800 mg-trimet hoprim 160 mg tablet 09/28 completed Not Available Not Available Not Available hydrocodo ne 10 mg-acetam inophen 325 mg tablet TAKE 1 TABLET BY MOUTH 1 TO 2 TIMES DAILY NEEDED 10/03 completed Not Available Not Available Not Available tramadol 50 mg tablet Take 1 tablet every 6 hours by oral route. 09/26 completed Not Available Not Available Not Available phentermi ne 30 mg capsule TAKE 1 CAPSULE BY MOUTH DAILY 2 HOURS AFTER BREAKFAS T active Not Available Not Available No t Available prednison e 10 mg tablets in a dose pack Take 1 tab by mouth, 3 times a day for 3 daysTake 1 tab by mouth 2 times a day for 2 daysTake 1 tab by mouth once a day for 1 day 2023 active Not Available Not Available Not Avai lable citalopra m 20 mg tablet TAKE 1 TABLET BY MOUTH DAILY active Not Available Not Available No t Available lorazepam 0.5 mg tablet TAKE 1 TABLET BY MOUTH TWICE DAILY NEEDED FOR ANXIETY active Not Available Not Available No t Available Kenalog 10 mg/mL suspensio n for injection Take 20 mg by injectio n route. 2023 active [facility]: [phone] 4-20 Not Available Not Available Not Available benzonata te 100 mg capsule TAKE 1 TABLET EVERY 8 HOURS NEEDED FOR COUGH OR CONGESTI ON 05/24 completed Not Available Not Available Not Available hydrocodo ne 7.5 mg-acetam inophen 325 mg tablet TAKE 1 TABLET BY MOUTH EVERY 6 HOURS 10/03 completed Not Available Not Available Not Available cephalexi n 500 mg capsule TAKE 1 CAPSULE BY MOUTH THREE TIMES DAILY 10/03 completed Not Available Not Available Not Available tobramyci n 0.3 % eye drops INSTILL 2 DROPS BY OPTHALMI C ROUTE Q 4 H FOR 7 DAYS 09/25 completed Not Available Not Available Not Available buspirone 10 mg tablet TAKE 1 TABLET BY MOUTH TWICE DAILY NEEDED FOR ANXIETY 10/03 completed Not Available Not Available Not Available clotrimaz ole-betam ethasone 1 %-0.05 % topical cream 08/17 completed Not Available Not Available Not Available lansopraz ole 30 mg capsule,d elayed release TAKE 1 CAPSULE BY MOUTH DAILY active Not Available Not Available No t Available docusate sodium 100 mg capsule TAKE 1 CAPSULE BY MOUTH TWICE DAILY 10/03 completed Not Available Not Available Not Available cephalexi n 500 mg tablet Take 1 tablet 3 times a day by oral route. 10/03 completed Not Available Not Available Not Available hydroxyzi ne HCl 25 mg tablet TAKE 1 TABLET BY MOUTH THREE TIMES DAILY NEEDED FOR ANXIETY 10/03 completed Not Available Not Available Not Available codeine 10 mg-guaife nesin 100 mg/5 mL oral liquid TAKE 2 TEASPOON SFUL FOUR TIMES A DAY NEEDED 08/17 completed Not Available Not Available Not Available metoprolo l succinate ER 25 mg tablet,ex tended release 24 hr 09/26 completed Not Available Not Available Not Available testoster one cypionate 200 mg/mL intramusc ular oil ADMINIST ER 1 ML IN THE MUSCLE EVERY 2 WEEKS active Not Available Not Available No t Available levofloxa gt 500 mg tablet TAKE 1 TABLET BY MOUTH DAILY 10/03 completed Not Available Not Available Not Available levofloxa gt 750 mg tablet 08/17 completed Not Available Not Available Not Available methylpre dnisolone 4 mg tablets in a dose pack FOLLOW PACKAGE DIRECTIO NS 10/03 completed Not Available Not Available Not Available albuterol sulfate HFA 90 mcg/actua tion aerosol inhaler INHALE 1 PUFF BY MOUTH EVERY 4 HOURS NEEDED active Not Available Not Available No t Available fluticaso ne propionat e 50 mcg/actua tion nasal spray,kathy pension active Not Available Not Available Not Available phentermi ne 37.5 mg capsule TAKE 1 CAPSULE BY MOUTH DAILY 10/03 completed Not Available Not Available Not Available naproxen 500 mg tablet TAKE 1 TABLET BY MOUTH TWICE DAILY NEEDED FOR PAIN active Not Available Not Available No t Available amoxicill in 875 mg-potass ium clavulana te 125 mg tablet 09/26 completed Not Available Not Available Not Available modafinil 100 mg tablet 09/28 completed Not Available Not Available Not Available neomycin- polymyxin -hydrocor t 3.5 mg-10,000 unit/mL-1 % ear drops,kathy p 09/26 completed Not Available Not Available Not Available azithromy gt 500 mg tablet 08/17 completed Not Available Not Available Not Available cyclobenz aprine 5 mg tablet 09/26 completed Not Available Not Available Not Available ORTHOVISC 30 mg/2 mL intra-art icular syringe Injectio ns given in the office by the doctor 01/14 completed [facility]: [id number] 001 Not Available Not Available Not Available tizanidin e 2 mg capsule TAKE 1 TABLET BY MOUTH THREE TIMES DAILY NEEDED FOR MUSCLE SPASMS 10/03 completed Not Available Not Available Not Available Prevacid 09/26 completed Not Available Not Available Not Available Lexapro 09/28 completed Not Available Not Available Not Available lidocaine (PF) 10 mg/mL (1 %) injection solution In office injectio n administ ered by the provider 09/28 completed [facility]: [phone] Not Available Not Available Not Available levocetir izine 5 mg tablet 08/17 completed Not Available Not Available Not Available oxycodone 10 mg tablet 08/17 completed Not Available Not Available Not Available Gavilyte- C 240 gram-22.7 2 gram-6.72 gram-5.84 gram oral solution active Not Available Not Available Not Available Xarelto 10 mg tablet 09/28 completed Not Available Not Available Not Available ropivacai ne (PF) 5 mg/mL (0.5 %) injection solution Take 20 mg by injectio n route. 10/03 completed [facility] [address]- Not Available Not Available Not Available OxyContin 30 mg tablet,cr ush resistant ,extended release 08/17 completed Not Available Not Available Not Available OxyContin 20 mg tablet,cr ush resistant ,extended release 08/17 completed Not Available Not Available Not Available OxyContin 10 mg tablet,cr ush resistant ,extended release 08/17 completed Not Available Not Available Not Available naloxone 4 mg/actuat ion nasal spray 09/26 completed Not Available Not Available Not Available Fluzone Quad (PF) 60 mcg (15 mcg x 4)/0.5 mL IM syringe ADM 0.5ML IM UTD 09/28 completed Not Available Not Available Not Available Vitals Date Recorded Body height Body mass index (BMI) Body weight Provider Name and Address Organization Details Last Updated DateTime 06/20/2023 165.1 cm 31.6 kg/m2 06801.55 g Aury Dhillon CNA [facility] 06/20/2023 09:53:39 Date Recorded Body height Body mass index (BMI) Body weight Provider Name and Address Organization Details Last Updated DateTime 07/11/2023 162.56 cm 30 kg/m2 92210.66 g ABBEY CruzMendel [facility] [employer] 07/11/2023 09:46:29 Date Recorded Body height Body mass index (BMI) Body weight Provider Name and Address Organization Details Last Updated DateTime 08/22/2023 165.1 cm 29.1 kg/m2 07952.66 nayeli Dhillon CNA [facility] 08/22/2023 09:36:36 Date Recorded Body height Body mass index (BMI) Body weight Provider Name and Address Organization Details Last Updated DateTime 10/03/2023 165.1 cm 34.2 kg/m2 91775.31 g Aury Dhillon CNA [facility] 10/03/2023 10:17:31 Date Recorded Body height Body mass index (BMI) Body weight Provider Name and Address Organization Details Last Updated DateTime 11/14/2023 165.1 cm 33.3 kg/m2 43148.47 g Aury Dhillon CNA [facility] 11/14/2023 10:10:15 Social History Question Answer Notes LastModified by Organizat ion Details LastModified Time Tobacco Smoking Status Never Smoker [facility]hill[facility] 10/03/2023 10:15:09 What Is Your Level Of Alcohol Consumption? None [email or web address] Information not available 10/03/2023 Do You Or Have You Ever Used Any Other Forms Of Tobacco Or Nicotine? No [id number] Information not available 12/21/2022 Sex: Unknown Functional Status None recorded. Mental Status None recorded. Family History Relationship Description Onset Age of this Age Resolved Age Notes LastModified by Organization Details LastModified Time Unspecified Relation Essential hypertension [id number] Not available 12/21/2022 00:53:13 Unspecified Relation Heart disease [id number] Not available 12/21/2022 00:53:13 Unspecified Relation Diabetes mellitus [id number] Not available 12/21/2022 00:53:13 Medical History Condition Response ARTHRITIS Y Past Encounters Encounter ID Performer Location Encounter Start Date Encounter Closed Date Diagnosis/Indication Diagnosis SNOMED-CT Code Diagnosis ICD10 Code Diagnosis Note [id number] [facility] [address] [place] [address] 01/14/2021 00:00:00 01/14/2021 15:36:31 [id number] [facility] [address] [place] [address] 01/19/2021 00:00:00 01/19/2021 15:13:25 [id number] [facility] [address] [place] [address] 02/02/2021 00:00:00 02/02/2021 15:36:14 [id number] [facility] [address] [place] [address] 02/16/2021 00:00:00 02/16/2021 15:01:37 [id number] [facility] [address] [place] [address] 03/11/2021 00:00:00 03/11/2021 14:01:44 [id number] [facility] [address] [place] [address] 04/28/2021 00:00:00 04/28/2021 11:41:32 [id number] [facility] [address] [place] [address] 06/10/2021 00:00:00 06/10/2021 14:33:05 [id number] [facility] [address] [place] [address] 09/28/2021 00:00:00 09/28/2021 15:16:30 [id number] [facility] [address] [place] [address] 01/24/2022 00:00:00 02/10/2022 12:47:13 [id number] [facility] [address] [place] [address] 02/22/2022 00:00:00 02/22/2022 14:10:50 [id number] [facility] [address] [place] [address] 03/03/2022 00:00:00 03/03/2022 14:08:03 [id number] [facility] [address] [place] [address] 09/26/2022 00:00:00 10/02/2022 13:29:06 [id number] [facility] [address] [place] [address] 10/27/2022 00:00:00 10/27/2022 16:00:00 [id number] [facility] [address] [place] [address] 11/22/2022 00:00:00 11/22/2022 15:50:51 [id number] [facility] [address] [place] [address] 11/29/2022 00:00:00 11/29/2022 15:21:21 [id number] Sam Perez MD [facility] [address] [place] [address] 05/04/2023 12:15:36 05/04/2023 13:41:12 Full thickness rotator cuff tear 827470606 M75.740 [id number] Sam Perez MD [facility] [address] [address] 06/20/2023 09:51:12 06/20/2023 10:31:08 Pain of right shoulder joint 9301671434 0022915 M25.511 Full thick ness rotator cuff tear 071507945 M75.121 Postoperative visit 1836 91539 Z09 [id number] Sam Perez MD [facility] [address] [address] 07/11/2023 09:44:55 07/11/2023 10:13:52 Full thickness rotator cuff tear 937684745 M75.121 Postoperative visit 1836 51417 Z09 [id number] KALYANI Godoy [facility] [address] [address] 08/22/2023 09:34:04 08/22/2023 10:06:13 Pain of right shoulder joint 8169660757 2495949 M25.511 Full thick ness rotator cuff tear 392965874 M75.822 [id number] KALYANI Godoy [facility] [address] [address] 10/03/2023 09:54:42 10/03/2023 10:51:28 Pain of right shoulder joint 8762824303 1420331 M25.511 Full thick ness rotator cuff tear 159643077 M75.510 [id number] KALYANI Godoy [facility] [address] [address] 11/14/2023 10:06:50 11/14/2023 11:33:51 Pain of left knee joint 2500883218 91108 M25.562 Osteoarthr itis of left knee joint 3835311234 28127 M17.12 History of right total knee replacement 3958572544 247763 Z96.651 Health Concerns Section Related Observation LastModified by Organization Detai ls LastModified Time None Recorded Concern Status LastModified by Organization Details LastModified Time None Recorded Advance Directives Directive None Recorded Payers Encounter Date Sequence Insurance Name Policy Number Policy [place] Covered Member ID [place] Member ID Guarantor Name 06/20/2023 1 [place] Vu [place] [id number] [facility] 07/11/2023 1 [place] [id number] [facility] 08/22/2023 1 [place] Vu Oglesby [facility] [id number] [facility] 10/03/2023 1 [place] [id number] [facility] 11/14/2023 1 [place] [id number] Vu Porter Notes Date Note Type Note Provider Name and Address Organization Details Recorded Time 06/20/2023 text/html Patient returns status post rotator cuff repair right. He thought he had an infection however today it is his incision is perfectly clean he has some areas are totally healed but overall looks fine he does have some fluid under the incision. Sam Perez MD [address], [facility] [address], [place], [address], [employer] 06/20/2023 10:16:34 07/11/2023 text/html Patient returns status post rotator cuff repair right. He had some swelling in his right shoulder which is resolved with time and I did give him some antibiotics as well. He is having no pain he is actually moving it well I told him to back off on his activity. Sam Perez MD [address], [address], [place], [address], [employer] 07/11/2023 10:05:50 08/22/2023 text/html Patient returns for recheck of his right shoulder. He is now 2 months status post rotator cuff repair per Dr. Perez. He comes in today stating that a lot of his pain has disappeared he is moving his shoulder very well. States his therapy has not been set up due to delays in scheduling trying to get in to see the therapist. He has previously had a rotator cuff repair on the opposite side pretty much knows what to do he has been doing some active assisted range of motion when he comes in today he can not fully raise his arm overhead has excellent strength and comfort level looks way ahead of the schedule. Has no postop complaints and is happy with the results. KALYANI Godoy [address], [address], [place], [address], [facility] 08/22/2023 10:09:36 10/03/2023 text/html Patient returns for recheck of his right shoulder he is now approximately 4 months status post rotator cuff repair per Dr. Perez. He has been doing physical therapy this is working well for him. His only discomfort is if he tries to rotate his arm up overhead he has some discomfort but the soreness is dissipating he states he can feel that his strength has come back to full strength he is quite pleased with results otherwise. He has no pain with trying to do daily activities otherwise. Has no loss of motion and no other complaints.A new past medical history sheet was reviewed and signed on the intake sheet of today's date drug allergies current medications family social history previous surgical history 10 point review of systems was reviewed and discussed in detail today with the patient. KALYANI Godoy [address], [address], [place], [address], [employer] 10/03/2023 10:30:51 11/14/2023 text/html Patient returns with a new problem today is complaining of left knee pain. Mostly on the medial side of the knee. He states this started about a month ago when he was climbing in and out of a bobcat machine all day. Denies any slipping twisting or turning just started to develop some slow gradual pain and aching. He states it is about a 4 on a scale of 1-10. If he tries to squat kneel twist or turn the knee this aggravates his symptoms denies any locking or catching no mechanical symptoms today. He does take naproxen 500 mg twice a day but this does not seem to be giving him much relief. Despite trying to rest it give it time his symptoms continue. Previously he has never really had any significant issues with the left knee he has had a previous right total knee arthroplasty about a year and a half ago. Patient comes in today for initial evaluation treatment is left knee pain as described. KALYANI Godoy [address] [facility], [facility] [address], [place], [address], [facility] [employer] 11/14/2023 10:53:02
--- OUTSIDE RECORDS SUMMARY | 2025-01-27 16:48 | XMS_ITS | Referral Summary ---
Author Organization [facility] Address [address] [place] [address] Care Team Providers Care Fish Inspector Name Role Phone Nathan Puentes MD Primary [...] on file Legal Sex Male 12:07 AM APPLICATION PACKAGING SPECIALIST Gender Identity Not on file Sexual Orientation Not on file Last Filed Vital Signs Vital Sign Reading Time Taken Comments Blood Pressure 148/91 12/09/2022 2:34 PM APPLICATION PACKAGING SPECIALIST Pulse 103 12/09/2022 2:34 PM APPLICATION PACKAGING SPECIALIST Temperature 36.6 C (97.8 F) 07/21/2022 10:36 AM CDT Respiratory Rate 18 07/21/2022 12:55 PM CDT Oxygen Saturation 94% 07/21/2022 12:55 PM CDT Inhaled Oxygen Concentration - - Weight 115.2 kg (254 lb) 12/09/2022 2:34 PM APPLICATION PACKAGING SPECIALIST Height 160 cm (5' 3 ) 12/09/2022 2:34 PM APPLICATION PACKAGING SPECIALIST Body Mass Index 44.99 12/09/2022 2:34 PM APPLICATION PACKAGING SPECIALIST Plan of Treatment Not on file Insurance MEDICARE MEDICARE MEDICARE Care Teams Fish Inspector Relationship Specialty Start Date End Date Nathan Puentes MD PCP - General Family Practice 12/09/22
--- OUTSIDE RECORDS SUMMARY | 2025-01-27 16:48 | XMS_ITS | Encounter Summary ---
Author Organization [facility] Address [address] [place] [address] Care Team Providers Care Educational Advisor Name Role Phone Nathan Puentes MD Primary Care Provider Encounter Details Date Type Department Care Team (Latest Contact Info) Description 02/21/2007 Outpatient Historical [facility] Hétcor Ayala MD [address] [place] [address] Follow-Up Examination, Following Other Surgery (Primary Dx) Social History Tobacco Use Types Packs/Day Years Used Date Smoking Tobacco: Never Assessed Sex and Gender Information Value Date Recorded Sex Assigned at Male 11/27/2023 8:24 PM ECONOMIC MANAGER Legal Sex Male 5:16 AM ECONOMIC MANAGER Gender Identity Male 11/27/2023 8:24 PM ECONOMIC MANAGER Sexual Orientation Straight 11/27/2023 8: 24 PM ECONOMIC MANAGER documented as of this encounter Plan of Treatment Not on file documented as of this encounter Visit Diagnoses Diagnosis Follow-up examination, following other surgery- Primary documented in this encounter Care Teams Educational Advisor Relationship Specialty Start Date End Date Nathan Puentes MD [address] [place] [phone] PCP - General Family Practice 05/26/23 documented as of this encounter
--- OUTSIDE RECORDS SUMMARY | 2025-01-27 16:48 | XMS_ITS | Encounter Summary ---
Author Organization [facility] Address [address] [place] [address] Care Team Providers Care Sql Programmer Analyst Name Role Phone Nathan Puentes MD Primary Care Provider Encounter Details Date Type Department Care Team (Latest Contact Info) Description 04/18/2007 Outpatient Historical [facility] Héctor Ayala MD [address] [place] [address] Unspecified Backache (Primary Dx) Social History Tobacco Use Types Packs/Day Years Used Date Smoking Tobacco: Never Assessed Sex and Gender Information Value Date Recorded Sex Assigned at Male 11/27/2023 8:24 PM THIRD HELPER Legal Sex Male 5:16 AM THIRD HELPER Gender Identity Male 11/27/2023 8:24 PM THIRD HELPER Sexual Orientation Straight 11/27/2023 8: 24 PM THIRD HELPER documented as of this encounter Plan of Treatment Not on file documented as of this encounter Visit Diagnoses Diagnosis Backache, unspecified- Primary documented in this encounter Care Teams Sql Programmer Analyst Relationship Specialty Start Date End Date Nathan Puentes MD [address] [place] [address] PCP - General Family Practice 05/26/23 documented as of this encounter
--- OUTSIDE RECORDS SUMMARY | 2025-01-27 16:48 | XMS_ITS | Encounter Summary ---
Author Organization [facility] Address [address] [place] [address] Care Team Providers Care Ross Lift Operator Name Role Phone Nathan Puentes MD Primary Care Provider Encounter Details Date Type Department Care Team (Late st Contact Info) Description 12/27/2006 Outpatient Historical [facility] Blood Flow [address] [place] [address] Paul Vizcaino MD [address] [facility] [address] [place], [place] [id number] Social History Tobacco Use Types Packs/Day Years Used Date Smoking Tobacco: Never Assessed Sex and Gender Information Value Date Recorded Sex Assigned at Male 11/27/2023 8:24 PM STUDENT SUPPORT COUNSELOR Legal Sex Male 5:16 AM STUDENT SUPPORT COUNSELOR Gender Identity Male 11/27/2023 8:24 PM STUDENT SUPPORT COUNSELOR Sexual Orientation Straight 11/27/2023 8: 24 PM STUDENT SUPPORT COUNSELOR documented as of this encounter Plan of Treatment Not on file documented as of this encounter Visit Diagnoses Not on filedocumented in this encounter Care Teams Ross Lift Operator Relationship Specialty Start Date End Date Nathan Puentes MD [address] [place] [address] PCP - General Family Practice 05/26/23 documented as of this encounter
--- OUTSIDE RECORDS SUMMARY | 2025-01-27 16:48 | XMS_ITS | Clinical Summary ---
Author Organization [facility] Address [address] [place] [address] Care Team Providers Care Pipe Puller Name Role Phone Nathan Puentes MD Primary [...] on file Legal Sex Male 12:07 AM EEG TECH Gender Identity Not on file Sexual Orientation Not on file Obstetrics History Last Filed Vital Signs Vital Sign Reading Time Taken Comments Blood Pressure 148/91 12/09/2022 2:34 PM EEG TECH Pulse 103 12/09/2022 2:34 PM EEG TECH Temperature 36.6 C (97.8 F) 07/21/2022 10:36 AM CDT Respiratory Rate 18 07/21/2022 12:55 PM CDT Oxygen Saturation 94% 07/21/2022 12:55 PM CDT Inhaled Oxygen Concentration - - Weight 115.2 kg (254 lb) 12/09/2022 2:34 PM EEG TECH Height 160 cm (5' 3 ) 12/09/2022 2:34 PM EEG TECH Body Mass Index 44.99 12/09/2022 2:34 PM EEG TECH Plan of Treatment Health Maintenance Due Date [...] topic Insurance MEDICARE MEDICARE MEDICARE Care Teams Pipe Puller Relationship Specialty Start Date End Date Nathan Puentes MD PCP - General Family Practice 12/09/22
--- OUTSIDE RECORDS SUMMARY | 2025-01-27 16:48 | XMS_ITS | Encounter Summary ---
Author Organization [facility] Address [address] [place] [address] Care Team Providers Care Lead Sewage Plant Operator Name Role Phone Nathan Puentes MD Primary Care Provider Encounter Details Date Type Department Care Team (Latest Contact Info) Description 11/10/2006 Inpatient Historical [facility] Héctor Ayala MD [address] [place] [address] Disc Displacement (Primary Dx) Social History Tobacco Use Types Packs/Day Years Used Date Smoking Tobacco: Never Assessed Sex and Gender Information Value Date Recorded Sex Assigned at Male 11/27/2023 8:24 PM SUPERINTENDENT CONTAINER TERMINAL Legal Sex Male 5:16 AM SUPERINTENDENT CONTAINER TERMINAL Gender Identity Male 11/27/2023 8:24 PM SUPERINTENDENT CONTAINER TERMINAL Sexual Orientation Straight 11/27/2023 8: 24 PM SUPERINTENDENT CONTAINER TERMINAL documented as of this encounter Plan of Treatment Not on file documented as of this encounter Procedures Procedure Name Priority Date/Time Associated Diagnosis Comments HEMOGLOBIN AND HEMATOCRIT Routine 11/11/2006 5:45 AM SUPERINTENDENT CONTAINER TERMINAL HEMOGLOBIN AND HEMATOCRIT Routine 11/10/2006 7:05 PM SUPERINTENDENT CONTAINER TERMINAL HEMOGLOBIN AND HEMATOCRIT Routine 11/07/2006 12:09 PM SUPERINTENDENT CONTAINER TERMINAL documented in this encounter Results * (ABNORMAL) HEMOGLOBIN AND HEMATOCRIT (11/11/2006 5:45 AM SUPERINTENDENT CONTAINER TERMINAL) HEMOGLOBIN 11.8(L) 13.6 - 16.5 g/dL INTERFACE SYSTEM HEMATOCRIT 35.8(L) 40.0 - 48.0 % INTERFACE SYSTEM 11/11/2006 5:45 AM SUPERINTENDENT CONTAINER TERMINAL us Héctor Ayala MD HEMATOLOGY ORDERABLES Edited Performing Organization Address [facility] Phone Number INTERFACE SYSTEM Refer to clinic/hospital department * (ABNORMAL) HEMOGLOBIN AND HEMATOCRIT (11/10/2006 7:05 PM SUPERINTENDENT CONTAINER TERMINAL) HEMOGLOBIN 13.2(L) 13.6 - 16.5 g/dL INTERFACE SYSTEM HEMATOCRIT 39.8(L) 40.0 - 48.0 % INTERFACE SYSTEM 11/10/2006 7:05 PM SUPERINTENDENT CONTAINER TERMINAL us Héctor Ayala MD HEMATOLOGY ORDERABLES Edited Performing Organization Address [facility] Phone Number INTERFACE SYSTEM Refer to clinic/hospital department * HEMOGLOBIN AND HEMATOCRIT (11/07/2006 12:09 PM SUPERINTENDENT CONTAINER TERMINAL) HEMOGLOBIN 16.3 13.6 - 16.5 g/dL INTERFACE SYSTEM HEMATOCRIT 47.3 40.0 - 48.0 % INTERFACE SYSTEM 11/07/2006 12:0 9 PM SUPERINTENDENT CONTAINER TERMINAL us Héctor Ayala MD HEMATOLOGY ORDERABLES Edited Performing Organization Address [facility] Phone Number INTERFACE SYSTEM Refer to clinic/hospital department documented in this encounter Visit Diagnoses Diagnosis Displacement of intervertebral disc, site unspecified, without myelopathy- Primary documented in this encounter Care Teams Lead Sewage Plant Operator Relationship Specialty Start Date End Date Nathan Puentes MD [address] [place] [address] PCP - General Family Practice 05/26/23 documented as of this encounter
--- OUTSIDE RECORDS SUMMARY | 2025-01-27 16:48 | XMS_ITS | Clinical Summary ---
Author Organization [facility] Address [address] [place] [address] Care Team Providers Care Software Quality Engineer Name Role Phone Nathan Puentes MD Primary [...] Sex Assigned at Male 11/27/2023 8:24 PM METROLOGY TECHNICIAN Legal Sex Male 5:16 AM METROLOGY TECHNICIAN Gender Identity Male 11/27/2023 8:24 PM METROLOGY TECHNICIAN Sexual Orientation Straight 11/27/2023 8: 24 PM METROLOGY TECHNICIAN Last Filed Vital Signs Vital Sign Reading Time Taken Comments Blood Pressure 139/84 11/28/2023 11:17 AM METROLOGY TECHNICIAN Pulse 83 11/28/2023 11:17 AM METROLOGY TECHNICIAN Temperature 36.6 C (97.9 F) 11/28/2023 11:17 AM METROLOGY TECHNICIAN Respiratory Rate 14 11/28/2023 11:17 AM METROLOGY TECHNICIAN Oxygen Saturation 97% 11/28/2023 11:17 AM METROLOGY TECHNICIAN Inhaled Oxygen Concentration - - Weight 91.2 kg (201 lb) 11/28/2023 11:17 AM METROLOGY TECHNICIAN Height 165.1 cm (5' 5 ) 05/19/2022 [...] MEDICARE PART A AND B Care Teams Software Quality Engineer Relationship Specialty Start Date End Date Nathan Puentes MD [address] [place] [address] PCP - General Family Practice 05/26/23
--- OUTSIDE RECORDS SUMMARY | 2025-01-27 16:48 | XMS_ITS | Encounter Summary ---
Author Organization [facility] Address [address] [place] [address] Care Team Providers Care Studio Artist Name Role Phone Nathan Puentes MD Primary Care Provider Encounter Details Date Type Department Care Team (Latest Contact Info) Description 05/30/2007 Outpatient Historical [facility] Héctor Ayala MD [address] [place] [address] Follow-Up Examination, Following Other Surgery (Primary Dx) Social History Tobacco Use Types Packs/Day Years Used Date Smoking Tobacco: Never Assessed Sex and Gender Information Value Date Recorded Sex Assigned at Male 11/27/2023 8:24 PM SALESPERSON MEN'S FURNISHINGS Legal Sex Male 5:16 AM SALESPERSON MEN'S FURNISHINGS Gender Identity Male 11/27/2023 8:24 PM SALESPERSON MEN'S FURNISHINGS Sexual Orientation Straight 11/27/2023 8: 24 PM SALESPERSON MEN'S FURNISHINGS documented as of this encounter Plan of Treatment Not on file documented as of this encounter Visit Diagnoses Diagnosis Follow-up examination, following other surgery- Primary documented in this encounter Care Teams Studio Artist Relationship Specialty Start Date End Date Nathan Puentes MD [address] [place] [phone] PCP - General Family Practice 05/26/23 documented as of this encounter
--- OUTSIDE RECORDS SUMMARY | 2025-01-27 16:48 | XMS_ITS | Encounter Summary ---
Author Organization [facility] Address [address] [place] [address] Care Team Providers Care Aircraft Machinist Name Role Phone Nathan Puentes MD Primary Care Provider Encounter Details Date Type Department Care Team (Latest Contact Info) Description 11/29/2006 Outpatient Historical [facility] Héctor Ayala MD [address] [place] [address] Follow-Up Examination, Following Other Surgery (Primary Dx) Social History Tobacco Use Types Packs/Day Years Used Date Smoking Tobacco: Never Assessed Sex and Gender Information Value Date Recorded Sex Assigned at Male 11/27/2023 8:24 PM TEST LAB TECHNICIAN Legal Sex Male 5:16 AM TEST LAB TECHNICIAN Gender Identity Male 11/27/2023 8:24 PM TEST LAB TECHNICIAN Sexual Orientation Straight 11/27/2023 8: 24 PM TEST LAB TECHNICIAN documented as of this encounter Plan of Treatment Not on file documented as of this encounter Visit Diagnoses Diagnosis Follow-up examination, following other surgery- Primary documented in this encounter Care Teams Aircraft Machinist Relationship Specialty Start Date End Date Nathan Puentes MD [address] [place] [phone] PCP - General Family Practice 05/26/23 documented as of this encounter
--- OUTSIDE RECORDS SUMMARY | 2025-01-27 16:48 | XMS_ITS | Encounter Summary ---
Author Organization [facility] Address [address] [place] [address] Care Team Providers Care Store Receiving Specialist Name Role Phone Nathan Puentes MD Primary Care Provider Encounter Details Date Type Department Care Team (Latest Contact Info) Description 07/16/2007 Outpatient Historical [facility] Héctor Ayala MD [address] [place] [address] Follow-Up Examination, Following Other Surgery (Primary Dx) Social History Tobacco Use Types Packs/Day Years Used Date Smoking Tobacco: Never Assessed Sex and Gender Information Value Date Recorded Sex Assigned at Male 11/27/2023 8:24 PM ORACLE EBS CONSULTANT Legal Sex Male 5:16 AM ORACLE EBS CONSULTANT Gender Identity Male 11/27/2023 8:24 PM ORACLE EBS CONSULTANT Sexual Orientation Straight 11/27/2023 8: 24 PM ORACLE EBS CONSULTANT documented as of this encounter Plan of Treatment Not on file documented as of this encounter Visit Diagnoses Diagnosis Follow-up examination, following other surgery- Primary documented in this encounter Care Teams Store Receiving Specialist Relationship Specialty Start Date End Date Nathan Puentes MD [address] [place] [phone] PCP - General Family Practice 05/26/23 documented as of this encounter
== END 2025-01-27 14:37 | disposition home or self-care (01) ==
PROVIDERS: PCP Family Medicine; Visit Provider Student in an Organized Health Care Education/Training Program
DX: N28.1 Cyst of kidney, acquired (principal); N13.30 Unspecified hydronephrosis
CPT/HCPCS: 76775

== ENCOUNTER 2025-04-11 12:52 | Outpatient (CLI) | payer MEDICARE, SELFPAY ==
--- NOTE | ~2025-04-11 | MR_ITS ---
MRI of the cervical spine Clinical History: Cervicalgia Technique: Axial T2-weighted and gradient images, and sagittal T1-weighted, T2-weighted, and STIR allison ges were acquired. Findings: There is no fracture or subluxation. There is straightening of the normal cervical lordosis . No suspicious bone marrow signal abnormality seen. At C2-C3, there is minimal disc protrusion. There is left facet arthropathy with left neural foramina l narrowing. There is minimal right facet arthropathy, but the right neural foramen is preserved. No canal stenosis or cord compression. At C3-C4, there is no significant disc bulge or herniation. No canal stenosis or cord compression. Th ere is bilateral facet arthropathy with bilateral neural foraminal narrowing. At C4-C5, there is left paracentral disc protrusion with underlying osteophyte complex. There is bila teral neural foraminal narrowing with mild bilateral facet arthropathy. There is mild compression of the ventral aspect of the spinal cord in the left side. At C5-C6, there is moderate degenerative distended. There is disc osteophyte complex with mild canal stenosis but no magdalena cord compression. There is right neural foraminal narrowing. Left neural forame n probably preserved. At C6-C7, there is diffuse disc osteophyte complex with mild canal stenosis but no magdalena cord nova thomas. There is bilateral neural foraminal narrowing. No abnormal signal seen in the spinal cord. Paravertebral soft tissues are unremarkable. Impression: Moderate degenerative spondylosis overall, as detailed above. There is multilevel neural foraminal na rrowing and multilevel mild canal stenosis. There is mild compression of the ventral aspect of the le ft side of spinal cord at C4-C5. Reviewed, dictated and finalized at [facility]. Impression: Moderate degenerative spondylosis overall, as detailed above. There is multilev el neural foraminal narrowing and multilevel mild canal stenosis. There is mild compression of the ventral aspect of the left side of spinal cord at C4-C5.
--- NOTE | ~2025-04-11 | MR_ITS ---
MRI of the thoracic spine Clinical History: Back pain Technique: Axial T2-weighted and gradient images, and sagittal T1-weighted, T2-weighted, and STIR allison ges were acquired. Findings: There is no fracture or subluxation of the thoracic spine. Vertebral bodies maintain normal height and line. No bone marrow signal abnormality seen. Intervertebral discs are relatively well preserved throughout the thoracic spine with minimal degener ative changes. No significant disc bulge or herniation seen at any thoracic level. No spinal canal st enosis or cord compression. Neural foramina are preserved throughout the thoracic spine. No abnormal signal seen in the spinal cord. Paravertebral soft tissues are unremarkable. Impression: Minimal degenerative disc changes. Reviewed, dictated and finalized at location . Impression: Minimal degenerative disc changes.
== END 2025-04-11 12:53 | disposition home or self-care (01) ==
LOC: GOSHIMG 12:53
PROVIDERS: PCP Family Medicine; Visit Provider Family Medicine
DX: R20.0 Anesthesia of skin (principal); R20.2 Paresthesia of skin; M47.22 Other spondylosis with radiculopathy, cervical region
CPT/HCPCS: 72141; 72146

== ENCOUNTER 2025-06-06 12:11 | Outpatient (CLI) | payer MEDICARE, SELFPAY ==
--- NOTE | ~2025-06-06 | XR_ITS ---
Cervical Spine: AP, lateral, open-mouth views Clinical History: Pain Findings: There is straightening of the normal cervical lordosis. No fracture or subluxation seen. Th ere is moderate degenerative disc narrowing at C5-C6. There is mild to moderate facet arthropathy. No instability seen on flexion or extension. Pre-vertebral soft tissues are unremarkable. Impression: [id number] degenerative spondylosis, as above. Reviewed, dictated and finalized at location . Impression: [id number] degenerative spondylosis, as above.
--- OUTSIDE RECORDS SUMMARY | 2025-06-06 12:17 | XMS_ITS | Encounter Summary ---
Author Organization [facility] Address [address] [place] [address] Care Team Providers Care Snow Shoveler Name Role Phone Nathan Puentes MD Primary Care Provider Encounter Details Date Type Department Care Team (Latest Contact Info) Description 05/30/2007 Outpatient [facility] Héctor Ayala MD [address] [place] [address] Follow-Up Examination, Following Other Surgery (Primary Dx) Social History Tobacco Use Types Packs/Day Years Used Date Smoking Tobacco: Never Assessed Sex and Gender Information Value Date Recorded Sex Assigned at Male 11/27/2023 8:24 PM DELTA SYSTEM FREIGHT CAR CLEANER Legal Sex Male 5:16 AM DELTA SYSTEM FREIGHT CAR CLEANER Gender Identity Male 11/27/2023 8:24 PM DELTA SYSTEM FREIGHT CAR CLEANER Sexual Orientation Straight 11/27/2023 8: 24 PM DELTA SYSTEM FREIGHT CAR CLEANER documented as of this encounter Plan of Treatment Not on file documented as of this encounter Visit Diagnoses Diagnosis Follow-up examination, following other surgery- Primary documented in this encounter Care Teams Snow Shoveler Relationship Specialty Start Date End Date Nathan Puentes MD [address] [place] [phone] PCP - General Family Practice 05/26/23 documented as of this encounter
--- OUTSIDE RECORDS SUMMARY | 2025-06-06 12:17 | XMS_ITS | Encounter Summary ---
Author Organization [facility] Address [address] [place] [address] Care Team Providers Care Mobile Ui Designer Name Role Phone Nathan Puentes MD Primary Care Provider Encounter Details Date Type Department Care Team (Latest Contact Info) Description 04/18/2007 Outpatient [facility] Héctor Ayala MD [address] [place] [address] Unspecified Backache (Primary Dx) Social History Tobacco Use Types Packs/Day Years Used Date Smoking Tobacco: Never Assessed Sex and Gender Information Value Date Recorded Sex Assigned at Male 11/27/2023 8:24 PM AIRPORT OPERATIONS SUPERVISOR Legal Sex Male 5:16 AM AIRPORT OPERATIONS SUPERVISOR Gender Identity Male 11/27/2023 8:24 PM AIRPORT OPERATIONS SUPERVISOR Sexual Orientation Straight 11/27/2023 8: 24 PM AIRPORT OPERATIONS SUPERVISOR documented as of this encounter Plan of Treatment Not on file documented as of this encounter Visit Diagnoses Diagnosis Backache, unspecified- Primary documented in this encounter Care Teams Mobile Ui Designer Relationship Specialty Start Date End Date Nathan Puentes MD [address] [place] [address] PCP - General Family Practice 05/26/23 documented as of this encounter
--- OUTSIDE RECORDS SUMMARY | 2025-06-06 12:17 | XMS_ITS | Clinical Summary ---
Author Organization [facility] Address [address] [place] [address] Care Team Providers Care Pipelines Supervisor Name Role Phone Nathan Puentes MD [...] on file Legal Sex Male 12:07 AM PAYROLL ACCOUNTING MANAGER Gender Identity Not on file Sexual Orientation Not on file Obstetrics History Last Filed Vital Signs Vital Sign Reading Time Taken Comments Blood Pressure 148/91 12/09/2022 2:34 PM PAYROLL ACCOUNTING MANAGER Pulse 103 12/09/2022 2:34 PM PAYROLL ACCOUNTING MANAGER Temperature 36.6 C (97.8 F) 07/21/2022 10:36 AM CDT Respiratory Rate 18 07/21/2022 12:55 PM CDT Oxygen Saturation 94% 07/21/2022 12:55 PM CDT Inhaled Oxygen Concentration - - Weight 115.2 kg (254 lb) 12/09/2022 2:34 PM PAYROLL ACCOUNTING MANAGER Height 160 cm (5' 3) 12/09/2022 2:34 PM PAYROLL ACCOUNTING MANAGER Body Mass Index 44.99 12/09/2022 2:34 PM PAYROLL ACCOUNTING MANAGER Plan of Treatment Health Maintenance Due Date Last Done Comments Colon Cancer Screening-Colonoscopy 1968 Depression Screening 1968 Hepatitis C Screening 1968 Prostate Cancer Screening-PSA 1968 Hepatitis B Screening 1986 Regular Well Visit/Exam 18-64 1986 Zoster Vaccine (1 of 2) 2018 Influenza Vaccine (#1) 2025 08/17/2020 DTaP/Tdap/Td Vaccine (2 - Td or Tdap) 08/15/2032 08/15/2022 Pneumococcal vaccine <65 Aged Out No longer eligible based on patient's age to complete this topic Insurance MEDICARE MEDICARE MEDICARE Care Teams Pipelines Supervisor Relationship Specialty Start Date End Date Nathan Puentes MD PCP - General Family Practice 12/09/22
--- OUTSIDE RECORDS SUMMARY | 2025-06-06 12:17 | XMS_ITS | Encounter Summary ---
Author Organization [facility] Address [address] [place] [address] Care Team Providers Care Handbag Finisher Name Role Phone Nathan Puentes MD Primary Care Provider Encounter Details Date Type Department Care Team (Late st Contact Info) Description 12/27/2006 Outpatient Historical [facility] Blood Flow [address] [place] [address] Paul Vizcaino MD [address] [place], [place] [id number] Social History Tobacco Use Types Packs/Day Years Used Date Smoking Tobacco: Never Assessed Sex and Gender Information Value Date Recorded Sex Assigned at Male 11/27/2023 8:24 PM TOOL MECHANIC Legal Sex Male 5:16 AM TOOL MECHANIC Gender Identity Male 11/27/2023 8:24 PM TOOL MECHANIC Sexual Orientation Straight 11/27/2023 8: 24 PM TOOL MECHANIC documented as of this encounter Plan of Treatment Not on file documented as of this encounter Visit Diagnoses Not on filedocumented in this encounter Care Teams Handbag Finisher Relationship Specialty Start Date End Date Nathan Puentes MD [address] [place] [address] PCP - General Family Practice 05/26/23 documented as of this encounter
--- OUTSIDE RECORDS SUMMARY | 2025-06-06 12:17 | XMS_ITS | Clinical Summary ---
Author Organization [facility] Address [address] [place] [address] Care Team Providers Care Exhaust Worker Name Role Phone Nathan Puentes MD Primary [...] Problem Noted Date Diagnosed Date Erythrocytosis 11/16/2021 Family History Relation Name Status Comments Brother [...] Sex Assigned at Male 11/27/2023 8:24 PM FEATHER SHAPER Legal Sex Male 5:16 AM FEATHER SHAPER Gender Identity Male 11/27/2023 8:24 PM FEATHER SHAPER Sexual Orientation Straight 11/27/2023 8: 24 PM FEATHER SHAPER Last Filed Vital Signs Vital Sign Reading Time Taken Comments Blood Pressure 139/84 11/28/2023 11:17 AM FEATHER SHAPER Pulse 83 11/28/2023 11:17 AM FEATHER SHAPER Temperature 36.6 C (97.9 F) 11/28/2023 11:17 AM FEATHER SHAPER Respiratory Rate 14 11/28/2023 11:17 AM FEATHER SHAPER Oxygen Saturation 97% 11/28/2023 11:17 AM FEATHER SHAPER Inhaled Oxygen Concentration - - Weight 91.2 kg (201 lb) 11/28/2023 11:17 AM FEATHER SHAPER Height 165.1 cm (5' 5) 05/19/2022 3:30 PM CDT Body Mass Index 33.45 05/19/2022 3:30 PM CDT Plan of Treatment Health Maintenance Due Date Last Done Comments DTAP/TDAP/TD VACCINES (1 - Tdap) 1987 HEPATITIS B VACCINES (1 of 3 - 19+ 3-dose series) 05/24 FIT-DNA Q 3 years 2013 FIT/FOBT Q 1 year 2013 Flex Sig/CT Colonography Q 5 years 2013 ZOSTER VACCINE (1 of 2) 2018 INFLUENZA VACCINE (#1) 2025 COLORECTAL SCREENING 09/10/2030 09/10/2020 Colorectal Cancer Screening 09/10/2030 Insurance MEDICARE PART A AND B Care Teams Exhaust Worker Relationship Specialty Start Date End Date Nathan Puentes MD [address] [place] [address] PCP - General Family Practice 05/26/23
--- OUTSIDE RECORDS SUMMARY | 2025-06-06 12:17 | XMS_ITS | Encounter Summary ---
Author Organization [facility] Address [address] [place] [address] Care Team Providers Care Pharmacy Billing Adjudicator Name Role Phone Nathan Puentes MD Primary Care Provider Encounter Details Date Type Department Care Team (Latest Contact Info) Description 07/16/2007 Outpatient Historical [facility] Héctor Ayala MD [address] [place] [address] Follow-Up Examination, Following Other Surgery (Primary Dx) Social History Tobacco Use Types Packs/Day Years Used Date Smoking Tobacco: Never Assessed Sex and Gender Information Value Date Recorded Sex Assigned at Male 11/27/2023 8:24 PM FIELD ARTILLERY CANNONEER Legal Sex Male 5:16 AM FIELD ARTILLERY CANNONEER Gender Identity Male 11/27/2023 8:24 PM FIELD ARTILLERY CANNONEER Sexual Orientation Straight 11/27/2023 8: 24 PM FIELD ARTILLERY CANNONEER documented as of this encounter Plan of Treatment Not on file documented as of this encounter Visit Diagnoses Diagnosis Follow-up examination, following other surgery- Primary documented in this encounter Care Teams Pharmacy Billing Adjudicator Relationship Specialty Start Date End Date Nathan Puentes MD [address] [place] [phone] PCP - General Family Practice 05/26/23 documented as of this encounter
--- OUTSIDE RECORDS SUMMARY | 2025-06-06 12:17 | XMS_ITS | Encounter Summary ---
Author Organization [facility] Address [address] [place] [address] Care Team Providers Care Siding Mechanic Name Role Phone Nathan Puentes MD Primary Care Provider Encounter Details Date Type Department Care Team (Latest Contact Info) Description 02/21/2007 Outpatient [facility] Héctor Ayala MD [address] [place] [address] Follow-Up Examination, Following Other Surgery (Primary Dx) Social History Tobacco Use Types Packs/Day Years Used Date Smoking Tobacco: Never Assessed Sex and Gender Information Value Date Recorded Sex Assigned at Male 11/27/2023 8:24 PM DISABILITY LIAISON OFFICER Legal Sex Male 5:16 AM DISABILITY LIAISON OFFICER Gender Identity Male 11/27/2023 8:24 PM DISABILITY LIAISON OFFICER Sexual Orientation Straight 11/27/2023 8: 24 PM DISABILITY LIAISON OFFICER documented as of this encounter Plan of Treatment Not on file documented as of this encounter Visit Diagnoses Diagnosis Follow-up examination, following other surgery- Primary documented in this encounter Care Teams Siding Mechanic Relationship Specialty Start Date End Date Nathan Puentes MD [address] [place] [phone] PCP - General Family Practice 05/26/23 documented as of this encounter
--- OUTSIDE RECORDS SUMMARY | 2025-06-06 12:17 | XMS_ITS | Encounter Summary ---
Author Organization [facility] Address [address] [place] [address] Care Team Providers Care Pilot Teacher Name Role Phone Nathan Puentes MD Primary Care Provider Encounter Details Date Type Department Care Team (Latest Contact Info) Description 12/27/2006 Outpatient Historical [facility] Héctor Ayala MD [address] [place] [address] Follow-Up Examination, Following Other Surgery (Primary Dx) Social History Tobacco Use Types Packs/Day Years Used Date Smoking Tobacco: Never Assessed Sex and Gender Information Value Date Recorded Sex Assigned at Male 11/27/2023 8:24 PM CASING MACHINE OPERATOR Legal Sex Male 5:16 AM CASING MACHINE OPERATOR Gender Identity Male 11/27/2023 8:24 PM CASING MACHINE OPERATOR Sexual Orientation Straight 11/27/2023 8: 24 PM CASING MACHINE OPERATOR documented as of this encounter Plan of Treatment Not on file documented as of this encounter Visit Diagnoses Diagnosis Follow-up examination, following other surgery- Primary documented in this encounter Care Teams Pilot Teacher Relationship Specialty Start Date End Date Nathan Puentes MD [address] [place] [phone] PCP - General Family Practice 05/26/23 documented as of this encounter
--- OUTSIDE RECORDS SUMMARY | 2025-06-06 12:17 | XMS_ITS | Encounter Summary ---
Author Organization [facility] Address [address] [place] [address] Care Team Providers Care Pilot Steam Yacht Name Role Phone Nathan Puentes MD Primary Care Provider Encounter Details Date Type Department Care Team (Latest Contact Info) Description 11/29/2006 Outpatient Historical [facility] Héctor Ayala MD [address] [place] [address] Follow-Up Examination, Following Other Surgery (Primary Dx) Social History Tobacco Use Types Packs/Day Years Used Date Smoking Tobacco: Never Assessed Sex and Gender Information Value Date Recorded Sex Assigned at Male 11/27/2023 8:24 PM TRIMMER CLIMBER Legal Sex Male 5:16 AM TRIMMER CLIMBER Gender Identity Male 11/27/2023 8:24 PM TRIMMER CLIMBER Sexual Orientation Straight 11/27/2023 8: 24 PM TRIMMER CLIMBER documented as of this encounter Plan of Treatment Not on file documented as of this encounter Visit Diagnoses Diagnosis Follow-up examination, following other surgery- Primary documented in this encounter Care Teams Pilot Steam Yacht Relationship Specialty Start Date End Date Nathan Puentes MD [address] [place] [phone] PCP - General Family Practice 05/26/23 documented as of this encounter
--- OUTSIDE RECORDS SUMMARY | 2025-06-06 12:17 | XMS_ITS | Encounter Summary ---
Author Organization [facility] Address [address] [place] [address] Care Team Providers Care Communications And Signals Supervisor Name Role Phone Nathan Puentes MD Primary Care Provider Encounter Details Date Type Department Care Team (Latest Contact Info) Description 11/10/2006 Inpatient Historical [facility] Héctor Ayala MD [address] [place] [address] Disc Displacement (Primary Dx) Social History Tobacco Use Types Packs/Day Years Used Date Smoking Tobacco: Never Assessed Sex and Gender Information Value Date Recorded Sex Assigned at Male 11/27/2023 8:24 PM PET SITTING Legal Sex Male 5:16 AM PET SITTING Gender Identity Male 11/27/2023 8:24 PM PET SITTING Sexual Orientation Straight 11/27/2023 8: 24 PM PET SITTING documented as of this encounter Plan of Treatment Not on file documented as of this encounter Procedures Procedure Name Priority Date/Time Associated Diagnosis Comments HEMOGLOBIN AND HEMATOCRIT Routine 11/11/2006 5:45 AM PET SITTING HEMOGLOBIN AND HEMATOCRIT Routine 11/10/2006 7:05 PM PET SITTING HEMOGLOBIN AND HEMATOCRIT Routine 11/07/2006 12:09 PM PET SITTING documented in this encounter Results * (ABNORMAL) HEMOGLOBIN AND HEMATOCRIT (11/11/2006 5:45 AM PET SITTING) HEMOGLOBIN 11.8(L) 13.6 - 16.5 g/dL INTERFACE SYSTEM HEMATOCRIT 35.8(L) 40.0 - 48.0 % INTERFACE SYSTEM 11/11/2006 5:45 AM PET SITTING us Héctor Ayala MD HEMATOLOGY ORDERABLES Edited Performing Organization Address [facility] Phone Number INTERFACE SYSTEM Refer to clinic/hospital department * (ABNORMAL) HEMOGLOBIN AND HEMATOCRIT (11/10/2006 7:05 PM PET SITTING) HEMOGLOBIN 13.2(L) 13.6 - 16.5 g/dL INTERFACE SYSTEM HEMATOCRIT 39.8(L) 40.0 - 48.0 % INTERFACE SYSTEM 11/10/2006 7:05 PM PET SITTING us Héctor Ayala MD HEMATOLOGY ORDERABLES Edited Performing Organization Address [facility] Phone Number INTERFACE SYSTEM Refer to clinic/hospital department * HEMOGLOBIN AND HEMATOCRIT (11/07/2006 12:09 PM PET SITTING) HEMOGLOBIN 16.3 13.6 - 16.5 g/dL INTERFACE SYSTEM HEMATOCRIT 47.3 40.0 - 48.0 % INTERFACE SYSTEM 11/07/2006 12:0 9 PM PET SITTING us Héctor Ayala MD HEMATOLOGY ORDERABLES Edited Performing Organization Address [facility] Phone Number INTERFACE SYSTEM Refer to clinic/hospital department documented in this encounter Visit Diagnoses Diagnosis Displacement of intervertebral disc, site unspecified, without myelopathy- Primary documented in this encounter Care Teams Communications And Signals Supervisor Relationship Specialty Start Date End Date Nathan Puentes MD [address] [place] [address] PCP - General Family Practice 05/26/23 documented as of this encounter
--- OUTSIDE RECORDS SUMMARY | 2025-06-06 12:17 | XMS_ITS | Encounter Summary ---
Author Organization [facility] Address [address] [place] [address] Care Team Providers Care Welding Machine Operator Arc Name Role Phone Nathan Puentes MD Primary Care Provider Encounter Details Date Type Department Care Team (Latest Contact Info) Description 01/24/2007 Outpatient Historical [facility] Héctor Ayala MD [address] [place] [address] Arthrodesis Status (Primary Dx) Social History Tobacco Use Types Packs/Day Years Used Date Smoking Tobacco: Never Assessed Sex and Gender Information Value Date Recorded Sex Assigned at Male 11/27/2023 8:24 PM COUTURIERE Legal Sex Male 5:16 AM COUTURIERE Gender Identity Male 11/27/2023 8:24 PM COUTURIERE Sexual Orientation Straight 11/27/2023 8: 24 PM COUTURIERE documented as of this encounter Plan of Treatment Not on file documented as of this encounter Visit Diagnoses Diagnosis Arthrodesis status- Primary documented in this encounter Care Teams Welding Machine Operator Arc Relationship Specialty Start Date End Date Nathan Puentes MD [address] [place] [address] PCP - General Family Practice 05/26/23 documented as of this encounter
== END 2025-06-06 12:12 | disposition home or self-care (01) ==
PROVIDERS: PCP Nurse Practitioner Family; Visit Provider Nurse Practitioner Adult Health
DX: M47.892 Other spondylosis, cervical region (principal)
CPT/HCPCS: 72050

== ENCOUNTER 2025-06-10 13:38 | Outpatient (CLI) | payer MEDICARE, SELFPAY ==
--- NOTE | ~2025-06-10 | CT_ITS ---
EXAM: CT cervical spine wo con - 06/10/2025 13:51 CDT History: 54 years old Male with M54.12 - Radiculopathy, cervical region COMPARISON: None available. PROCEDURE: CT of the cervical spine without contrast. Axial, sagittal and coronal reformatted planes were evaluated. Automatic exposure control was used for this study. FINDINGS: No acute fracture or subluxation. Straightening of cervical lordosis, likely positional or may be related to muscle spasm. Multilevel degenerative changes of the cervical spine include varying degrees of disk space narrowing, endplate osteophytosis as well as facet and uncal arthropathy. Prevertebral soft tissues are within normal limits. Visualized lung apices are clear. IMPRESSION: No evidence for cervical spine fracture or traumatic subluxation. Multilevel degenerative changes of the cervical spine. Reviewed, dictated and finalized at location A.
--- OUTSIDE RECORDS SUMMARY | 2025-06-10 13:54 | XMS_ITS | Clinical Summary ---
Author Organization [facility] Address [address] [place] [address] Care Team Providers Care Damascener Name Role Phone Nathan Puentes MD Primary [...] Sex Assigned at Male 11/27/2023 8:24 PM ASSEMBLING MACHINE OPERATOR Legal Sex Male 5:16 AM ASSEMBLING MACHINE OPERATOR Gender Identity Male 11/27/2023 8:24 PM ASSEMBLING MACHINE OPERATOR Sexual Orientation Straight 11/27/2023 8: 24 PM ASSEMBLING MACHINE OPERATOR Last Filed Vital Signs Vital Sign Reading Time Taken Comments Blood Pressure 139/84 11/28/2023 11:17 AM ASSEMBLING MACHINE OPERATOR Pulse 83 11/28/2023 11:17 AM ASSEMBLING MACHINE OPERATOR Temperature 36.6 C (97.9 F) 11/28/2023 11:17 AM ASSEMBLING MACHINE OPERATOR Respiratory Rate 14 11/28/2023 11:17 AM ASSEMBLING MACHINE OPERATOR Oxygen Saturation 97% 11/28/2023 11:17 AM ASSEMBLING MACHINE OPERATOR Inhaled Oxygen Concentration - - Weight 91.2 kg (201 lb) 11/28/2023 11:17 AM ASSEMBLING MACHINE OPERATOR Height 165.1 cm (5' 5) 05/19/2022 3:30 [...] MEDICARE PART A AND B Care Teams Damascener Relationship Specialty Start Date End Date Nathan Puentes MD [address] [place] [address] PCP - General Family Practice 05/26/23
--- OUTSIDE RECORDS SUMMARY | 2025-06-10 13:54 | XMS_ITS | Clinical Summary ---
Author Organization [facility] Address [address] [place] [address] Care Team Providers Care Corporate Staff Accountant Name Role Phone Nathan Puentes MD Primary [...] on file Legal Sex Male 12:07 AM CLOTH FINISHING RANGE OPERATOR Gender Identity Not on file Sexual Orientation Not on file Obstetrics History Last Filed Vital Signs Vital Sign Reading Time Taken Comments Blood Pressure 148/91 12/09/2022 2:34 PM CLOTH FINISHING RANGE OPERATOR Pulse 103 12/09/2022 2:34 PM CLOTH FINISHING RANGE OPERATOR Temperature 36.6 C (97.8 F) 07/21/2022 10:36 AM CDT Respiratory Rate 18 07/21/2022 12:55 PM CDT Oxygen Saturation 94% 07/21/2022 12:55 PM CDT Inhaled Oxygen Concentration - - Weight 115.2 kg (254 lb) 12/09/2022 2:34 PM CLOTH FINISHING RANGE OPERATOR Height 160 cm (5' 3) 12/09/2022 2:34 PM CLOTH FINISHING RANGE OPERATOR Body Mass Index 44.99 12/09/2022 2:34 PM CLOTH FINISHING RANGE OPERATOR Plan of Treatment Health Maintenance Due [...] topic Insurance MEDICARE MEDICARE MEDICARE Care Teams Corporate Staff Accountant Relationship Specialty Start Date End Date Nathan Puentes MD PCP - General Family Practice 12/09/22
--- OUTSIDE RECORDS SUMMARY | 2025-06-10 13:55 | XMS_ITS | Encounter Summary ---
Author Organization [facility] Address [address] [place] [address] Care Team Providers Care Campus Recruiting Intern Name Role Phone Nathan Puentes MD Primary Care Provider Encounter Details Date Type Department Care Team (Latest Contact Info) Description 01/24/2007 Outpatient Historical [facility] Héctor Ayala MD [address] [place] [address] Arthrodesis Status (Primary Dx) Social History Tobacco Use Types Packs/Day Years Used Date Smoking Tobacco: Never Assessed Sex and Gender Information Value Date Recorded Sex Assigned at Male 11/27/2023 8:24 PM ADMINISTRATOR HEALTH CARE FACILITY Legal Sex Male 5:16 AM ADMINISTRATOR HEALTH CARE FACILITY Gender Identity Male 11/27/2023 8:24 PM ADMINISTRATOR HEALTH CARE FACILITY Sexual Orientation Straight 11/27/2023 8: 24 PM ADMINISTRATOR HEALTH CARE FACILITY documented as of this encounter Plan of Treatment Not on file documented as of this encounter Visit Diagnoses Diagnosis Arthrodesis status- Primary documented in this encounter Care Teams Campus Recruiting Intern Relationship Specialty Start Date End Date Nathan Puentes MD [address] [place] [address] PCP - General Family Practice 05/26/23 documented as of this encounter
--- OUTSIDE RECORDS SUMMARY | 2025-06-10 13:55 | XMS_ITS | Encounter Summary ---
Author Organization [facility] Address [address] [place] [address] Care Team Providers Care Lithographic Stripper Name Role Phone Nathan Puentes MD Primary Care Provider Encounter Details Date Type Department Care Team (Latest Contact Info) Description 07/16/2007 Outpatient Historical [facility] Héctor Ayala MD [address] [place] [address] Follow-Up Examination, Following Other Surgery (Primary Dx) Social History Tobacco Use Types Packs/Day Years Used Date Smoking Tobacco: Never Assessed Sex and Gender Information Value Date Recorded Sex Assigned at Male 11/27/2023 8:24 PM TALENT ACQUISITION SPECIALIST Legal Sex Male 5:16 AM TALENT ACQUISITION SPECIALIST Gender Identity Male 11/27/2023 8:24 PM TALENT ACQUISITION SPECIALIST Sexual Orientation Straight 11/27/2023 8: 24 PM TALENT ACQUISITION SPECIALIST documented as of this encounter Plan of Treatment Not on file documented as of this encounter Visit Diagnoses Diagnosis Follow-up examination, following other surgery- Primary documented in this encounter Care Teams Lithographic Stripper Relationship Specialty Start Date End Date Nathan Puentes MD [address] [place] [phone] PCP - General Family Practice 05/26/23 documented as of this encounter
--- OUTSIDE RECORDS SUMMARY | 2025-06-10 13:55 | XMS_ITS | Encounter Summary ---
Author Organization [facility] Address [address] [place] [address] Care Team Providers Care Favor Maker Name Role Phone Nathan Puentes MD Primary Care Provider Encounter Details Date Type Department Care Team (Latest Contact Info) Description 12/27/2006 Outpatient [facility] Héctor Ayala MD [address] [place] [address] Follow-Up Examination, Following Other Surgery (Primary Dx) Social History Tobacco Use Types Packs/Day Years Used Date Smoking Tobacco: Never Assessed Sex and Gender Information Value Date Recorded Sex Assigned at Male 11/27/2023 8:24 PM TIRE DEBEADER Legal Sex Male 5:16 AM TIRE DEBEADER Gender Identity Male 11/27/2023 8:24 PM TIRE DEBEADER Sexual Orientation Straight 11/27/2023 8: 24 PM TIRE DEBEADER documented as of this encounter Plan of Treatment Not on file documented as of this encounter Visit Diagnoses Diagnosis Follow-up examination, following other surgery- Primary documented in this encounter Care Teams Favor Maker Relationship Specialty Start Date End Date Nathan Puentes MD [address] [place] [phone] PCP - General Family Practice 05/26/23 documented as of this encounter
--- OUTSIDE RECORDS SUMMARY | 2025-06-10 13:55 | XMS_ITS | Encounter Summary ---
Author Organization [facility] Address [address] [place] [address] Care Team Providers Care Smelter Charger Name Role Phone Nathan Puentse MD Primary Care Provider Encounter Details Date Type Department Care Team (Latest Contact Info) Description 02/21/2007 Outpatient [facility] Héctor Ayala MD [address] [place] [address] Follow-Up Examination, Following Other Surgery (Primary Dx) Social History Tobacco Use Types Packs/Day Years Used Date Smoking Tobacco: Never Assessed Sex and Gender Information Value Date Recorded Sex Assigned at Male 11/27/2023 8:24 PM DIGITAL MEDIA MANAGER Legal Sex Male 5:16 AM DIGITAL MEDIA MANAGER Gender Identity Male 11/27/2023 8:24 PM DIGITAL MEDIA MANAGER Sexual Orientation Straight 11/27/2023 8: 24 PM DIGITAL MEDIA MANAGER documented as of this encounter Plan of Treatment Not on file documented as of this encounter Visit Diagnoses Diagnosis Follow-up examination, following other surgery- Primary documented in this encounter Care Teams Smelter Charger Relationship Specialty Start Date End Date Nathan Puentes MD [address] [place] [phone] PCP - General Family Practice 05/26/23 documented as of this encounter
--- OUTSIDE RECORDS SUMMARY | 2025-06-10 13:55 | XMS_ITS | Encounter Summary ---
Author Organization [facility] Address [address] [place] [address] Care Team Providers Care Recruit Instructor Name Role Phone Nathan Puentes MD Primary Care Provider Encounter Details Date Type Department Care Team (Latest Contact Info) Description 05/30/2007 Outpatient [facility] Héctor Ayala MD [address] [place] [address] Follow-Up Examination, Following Other Surgery (Primary Dx) Social History Tobacco Use Types Packs/Day Years Used Date Smoking Tobacco: Never Assessed Sex and Gender Information Value Date Recorded Sex Assigned at Male 11/27/2023 8:24 PM CRIME SCENE EXAMINER Legal Sex Male 5:16 AM CRIME SCENE EXAMINER Gender Identity Male 11/27/2023 8:24 PM CRIME SCENE EXAMINER Sexual Orientation Straight 11/27/2023 8: 24 PM CRIME SCENE EXAMINER documented as of this encounter Plan of Treatment Not on file documented as of this encounter Visit Diagnoses Diagnosis Follow-up examination, following other surgery- Primary documented in this encounter Care Teams Recruit Instructor Relationship Specialty Start Date End Date Nathan Puentes MD [address] [place] [phone] PCP - General Family Practice 05/26/23 documented as of this encounter
--- OUTSIDE RECORDS SUMMARY | 2025-06-10 13:55 | XMS_ITS | Encounter Summary ---
Author Organization [email or web address] Address [address] [place] [address] Care Team Providers Care Gold Prospector Name Role Phone Nathan Puentes MD Primary Care Provider Encounter Details Date Type Department Care Team (Latest Contact Info) Description 11/29/2006 Outpatient [facility] Héctor Ayala MD [address] [place] [address] Follow-Up Examination, Following Other Surgery (Primary Dx) Social History Tobacco Use Types Packs/Day Years Used Date Smoking Tobacco: Never Assessed Sex and Gender Information Value Date Recorded Sex Assigned at Male 11/27/2023 8:24 PM SPLICING MACHINE OPERATOR Legal Sex Male 5:16 AM SPLICING MACHINE OPERATOR Gender Identity Male 11/27/2023 8:24 PM SPLICING MACHINE OPERATOR Sexual Orientation Straight 11/27/2023 8: 24 PM SPLICING MACHINE OPERATOR documented as of this encounter Plan of Treatment Not on file documented as of this encounter Visit Diagnoses Diagnosis Follow-up examination, following other surgery- Primary documented in this encounter Care Teams Gold Prospector Relationship Specialty Start Date End Date Nathan Puentes MD [address] [place] [phone] PCP - General Family Practice 05/26/23 documented as of this encounter
--- OUTSIDE RECORDS SUMMARY | 2025-06-10 13:55 | XMS_ITS | Encounter Summary ---
Author Organization [facility] Address [address] [place] [address] Care Team Providers Care Supervisor Metal Fabricating Name Role Phone Nathan Puentes MD Primary Care Provider Encounter Details Date Type Department Care Team (Latest Contact Info) Description 04/18/2007 Outpatient Historical [facility] Héctor Ayala MD [address] [place] [address] Unspecified Backache (Primary Dx) Social History Tobacco Use Types Packs/Day Years Used Date Smoking Tobacco: Never Assessed Sex and Gender Information Value Date Recorded Sex Assigned at Male 11/27/2023 8:24 PM PRODUCTION SOLDERER Legal Sex Male 5:16 AM PRODUCTION SOLDERER Gender Identity Male 11/27/2023 8:24 PM PRODUCTION SOLDERER Sexual Orientation Straight 11/27/2023 8: 24 PM PRODUCTION SOLDERER documented as of this encounter Plan of Treatment Not on file documented as of this encounter Visit Diagnoses Diagnosis Backache, unspecified- Primary documented in this encounter Care Teams Supervisor Metal Fabricating Relationship Specialty Start Date End Date Nathan Puentes MD [address] [place] [address] PCP - General Family Practice 05/26/23 documented as of this encounter
--- OUTSIDE RECORDS SUMMARY | 2025-06-10 13:55 | XMS_ITS | Encounter Summary ---
Author Organization [facility] Address [address] [place] [address] Care Team Providers Care Siphoner Name Role Phone Nathan Puentes MD Primary Care Provider Encounter Details Date Type Department Care Team (Late st Contact Info) Description 12/27/2006 Outpatient Historical [facility] Supp Svcs Blood Flow [address] [place] [address] Paul Vizcaino MD [address] [place], [place] [id number] Social History Tobacco Use Types Packs/Day Years Used Date Smoking Tobacco: Never Assessed Sex and Gender Information Value Date Recorded Sex Assigned at Male 11/27/2023 8:24 PM FIBERLINE SUPERVISOR Legal Sex Male 5:16 AM FIBERLINE SUPERVISOR Gender Identity Male 11/27/2023 8:24 PM FIBERLINE SUPERVISOR Sexual Orientation Straight 11/27/2023 8: 24 PM FIBERLINE SUPERVISOR documented as of this encounter Plan of Treatment Not on file documented as of this encounter Visit Diagnoses Not on filedocumented in this encounter Care Teams Siphoner Relationship Specialty Start Date End Date Nathan Puentes MD [address] [place] [address] PCP - General Family Practice 05/26/23 documented as of this encounter
--- OUTSIDE RECORDS SUMMARY | 2025-06-10 13:55 | XMS_ITS | Encounter Summary ---
Author Organization [facility] Address [address] [place] [address] Care Team Providers Care Under Seal Operator Name Role Phone Nathan Puentes MD Primary Care Provider Encounter Details Date Type Department Care Team (Latest Contact Info) Description 11/10/2006 Inpatient Historical [facility] Héctor Ayala MD [address] [place] [address] Disc Displacement (Primary Dx) Social History Tobacco Use Types Packs/Day Years Used Date Smoking Tobacco: Never Assessed Sex and Gender Information Value Date Recorded Sex Assigned at Male 11/27/2023 8:24 PM ASBESTOS HANDLER Legal Sex Male 5:16 AM ASBESTOS HANDLER Gender Identity Male 11/27/2023 8:24 PM ASBESTOS HANDLER Sexual Orientation Straight 11/27/2023 8: 24 PM ASBESTOS HANDLER documented as of this encounter Plan of Treatment Not on file documented as of this encounter Procedures Procedure Name Priority Date/Time Associated Diagnosis Comments HEMOGLOBIN AND HEMATOCRIT Routine 11/11/2006 5:45 AM ASBESTOS HANDLER HEMOGLOBIN AND HEMATOCRIT Routine 11/10/2006 7:05 PM ASBESTOS HANDLER HEMOGLOBIN AND HEMATOCRIT Routine 11/07/2006 12:09 PM ASBESTOS HANDLER documented in this encounter Results * (ABNORMAL) HEMOGLOBIN AND HEMATOCRIT (11/11/2006 5:45 AM ASBESTOS HANDLER) HEMOGLOBIN 11.8(L) 13.6 - 16.5 g/dL INTERFACE SYSTEM HEMATOCRIT 35.8(L) 40.0 - 48.0 % INTERFACE SYSTEM 11/11/2006 5:45 AM ASBESTOS HANDLER us Héctor Ayala MD HEMATOLOGY ORDERABLES Edited Performing Organization Address [facility] Phone Number INTERFACE SYSTEM Refer to clinic/hospital department * (ABNORMAL) HEMOGLOBIN AND HEMATOCRIT (11/10/2006 7:05 PM ASBESTOS HANDLER) HEMOGLOBIN 13.2(L) 13.6 - 16.5 g/dL INTERFACE SYSTEM HEMATOCRIT 39.8(L) 40.0 - 48.0 % INTERFACE SYSTEM 11/10/2006 7:05 PM ASBESTOS HANDLER us Héctor Ayala MD HEMATOLOGY ORDERABLES Edited Performing Organization Address [facility] Phone Number INTERFACE SYSTEM Refer to clinic/hospital department * HEMOGLOBIN AND HEMATOCRIT (11/07/2006 12:09 PM ASBESTOS HANDLER) HEMOGLOBIN 16.3 13.6 - 16.5 g/dL INTERFACE SYSTEM HEMATOCRIT 47.3 40.0 - 48.0 % INTERFACE SYSTEM 11/07/2006 12:0 9 PM ASBESTOS HANDLER us Héctor Ayala MD HEMATOLOGY ORDERABLES Edited Performing Organization Address [facility] Phone Number INTERFACE SYSTEM Refer to clinic/hospital department documented in this encounter Visit Diagnoses Diagnosis Displacement of intervertebral disc, site unspecified, without myelopathy- Primary documented in this encounter Care Teams Under Seal Operator Relationship Specialty Start Date End Date Nathan Puentes MD [address] [place] [address] PCP - General Family Practice 05/26/23 documented as of this encounter
== END 2025-06-10 13:39 | disposition home or self-care (01) ==
PROVIDERS: PCP Nurse Practitioner Family; Visit Provider Neurological Surgery
DX: M54.12 Radiculopathy, cervical region (principal); M50.30 Other cervical disc degeneration, unspecified cervical region
CPT/HCPCS: 72125

== ENCOUNTER 2025-09-04 11:40 | Outpatient (CLI) | payer MEDICARE, SELFPAY ==
--- NOTE | ~2025-09-04 | XR_ITS ---
EXAMINATION: XR chest 2V HISTORY: M54.12 - Radiculopathy, cervical region COMPARISON: No comparisons available. Technique: 2 views obtained. Findings: The lungs are clear, no effusion. No pneumothorax. Heart is normal size. Mediastinal and hilar contours are within normal limits. Bony thorax no acute abnormality. Impression: No acute cardiopulmonary abnormality. Reviewed, dictated and finalized at location P. T CLERK Impression: No acute cardiopulmonary abnormality.
--- OUTSIDE RECORDS SUMMARY | 2025-09-04 12:46 | XMS_ITS | Encounter Summary ---
Author Organization [facility] Address [address] [place] [address] Care Team Providers Care Appraisal Manager Name Role Phone Nathan Puentes MD Primary Care Provider Encounter Details Date Type Department Care Team (Latest Contact Info) Description 11/10/2006 Inpatient Historical [facility] Héctor Ayala MD [address] [place] [address] Disc Displacement (Primary Dx) Social History Tobacco Use Types Packs/Day Years Used Date Smoking Tobacco: Never Assessed Sex and Gender Information Value Date Recorded Sex Assigned at Male 11/27/2023 8:24 PM TRENCH PIPE LAYER HELPER Legal Sex Male 5:16 AM TRENCH PIPE LAYER HELPER Gender Identity Male 11/27/2023 8:24 PM TRENCH PIPE LAYER HELPER Sexual Orientation Straight 11/27/2023 8: 24 PM TRENCH PIPE LAYER HELPER documented as of this encounter Plan of Treatment Not on file documented as of this encounter Procedures Procedure Name Priority Date/Time Associated Diagnosis Comments HEMOGLOBIN AND HEMATOCRIT Routine 11/11/2006 5:45 AM TRENCH PIPE LAYER HELPER HEMOGLOBIN AND HEMATOCRIT Routine 11/10/2006 7:05 PM TRENCH PIPE LAYER HELPER HEMOGLOBIN AND HEMATOCRIT Routine 11/07/2006 12:09 PM TRENCH PIPE LAYER HELPER documented in this encounter Results * (ABNORMAL) HEMOGLOBIN AND HEMATOCRIT (11/11/2006 5:45 AM TRENCH PIPE LAYER HELPER) HEMOGLOBIN 11.8(L) 13.6 - 16.5 g/dL INTERFACE SYSTEM HEMATOCRIT 35.8(L) 40.0 - 48.0 % INTERFACE SYSTEM 11/11/2006 5:45 AM TRENCH PIPE LAYER HELPER us Héctor Ayala MD HEMATOLOGY ORDERABLES Edited Performing Organization Address [facility] Phone Number INTERFACE SYSTEM Refer to clinic/hospital department * (ABNORMAL) HEMOGLOBIN AND HEMATOCRIT (11/10/2006 7:05 PM TRENCH PIPE LAYER HELPER) HEMOGLOBIN 13.2(L) 13.6 - 16.5 g/dL INTERFACE SYSTEM HEMATOCRIT 39.8(L) 40.0 - 48.0 % INTERFACE SYSTEM 11/10/2006 7:05 PM TRENCH PIPE LAYER HELPER us Héctor Ayala MD HEMATOLOGY ORDERABLES Edited Performing Organization Address [facility] Phone Number INTERFACE SYSTEM Refer to clinic/hospital department * HEMOGLOBIN AND HEMATOCRIT (11/07/2006 12:09 PM TRENCH PIPE LAYER HELPER) HEMOGLOBIN 16.3 13.6 - 16.5 g/dL INTERFACE SYSTEM HEMATOCRIT 47.3 40.0 - 48.0 % INTERFACE SYSTEM 11/07/2006 12:0 9 PM TRENCH PIPE LAYER HELPER us Héctor Ayala MD HEMATOLOGY ORDERABLES Edited Performing Organization Address [facility] Phone Number INTERFACE SYSTEM Refer to clinic/hospital department documented in this encounter Visit Diagnoses Diagnosis Displacement of intervertebral disc, site unspecified, without myelopathy- Primary documented in this encounter Care Teams Appraisal Manager Relationship Specialty Start Date End Date Nathan Puentes MD [address] [place] [address] PCP - General Family Practice 05/26/23 documented as of this encounter
--- OUTSIDE RECORDS SUMMARY | 2025-09-04 12:46 | XMS_ITS | Encounter Summary ---
Author Organization [facility] Address [address] [place] [address] Care Team Providers Care Dye Weigher Name Role Phone Nathan Puentes MD Primary Care Provider Encounter Details Date Type Department Care Team (Latest Contact Info) Description 01/24/2007 Outpatient Historical [facility] Héctor Ayala MD [address] [place] [address] Arthrodesis Status (Primary Dx) Social History Tobacco Use Types Packs/Day Years Used Date Smoking Tobacco: Never Assessed Sex and Gender Information Value Date Recorded Sex Assigned at Male 11/27/2023 8:24 PM CASHIER ASSOCIATE Legal Sex Male 5:16 AM CASHIER ASSOCIATE Gender Identity Male 11/27/2023 8:24 PM CASHIER ASSOCIATE Sexual Orientation Straight 11/27/2023 8: 24 PM CASHIER ASSOCIATE documented as of this encounter Plan of Treatment Not on file documented as of this encounter Visit Diagnoses Diagnosis Arthrodesis status- Primary documented in this encounter Care Teams Dye Weigher Relationship Specialty Start Date End Date Nathan Puentes MD [address] [place] [address] PCP - General Family Practice 05/26/23 documented as of this encounter
--- OUTSIDE RECORDS SUMMARY | 2025-09-04 12:46 | XMS_ITS | Encounter Summary ---
Author Organization [facility] Address [address] [place] [address] Care Team Providers Care Dictating Transcribing Machine Servicer Name Role Phone Nathan Puentes MD Primary Care Provider Encounter Details Date Type Department Care Team (Latest Contact Info) Description 05/30/2007 Outpatient Historical [facility] Héctor Ayala MD [address] [place] [address] Follow-Up Examination, Following Other Surgery (Primary Dx) Social History Tobacco Use Types Packs/Day Years Used Date Smoking Tobacco: Never Assessed Sex and Gender Information Value Date Recorded Sex Assigned at Male 11/27/2023 8:24 PM COMMERCIAL SEWING INSTRUCTOR Legal Sex Male 5:16 AM COMMERCIAL SEWING INSTRUCTOR Gender Identity Male 11/27/2023 8:24 PM COMMERCIAL SEWING INSTRUCTOR Sexual Orientation Straight 11/27/2023 8: 24 PM COMMERCIAL SEWING INSTRUCTOR documented as of this encounter Plan of Treatment Not on file documented as of this encounter Visit Diagnoses Diagnosis Follow-up examination, following other surgery- Primary documented in this encounter Care Teams Dictating Transcribing Machine Servicer Relationship Specialty Start Date End Date Nathan Puentes MD [address] [place] [phone] PCP - General Family Practice 05/26/23 documented as of this encounter
--- OUTSIDE RECORDS SUMMARY | 2025-09-04 12:46 | XMS_ITS | Encounter Summary ---
Author Organization [facility] Address [address] [place] [address] Care Team Providers Care Auto Specialty Services Manager Name Role Phone Nathan Puentes MD Primary Care Provider Encounter Details Date Type Department Care Team (Late st Contact Info) Description 12/27/2006 Outpatient Historical [facility] Supp Svcs Blood Flow [address] [place] [address] Paul Vizcaino MD [address] [place], [place] [id number] Social History Tobacco Use Types Packs/Day Years Used Date Smoking Tobacco: Never Assessed Sex and Gender Information Value Date Recorded Sex Assigned at Male 11/27/2023 8:24 PM LANGUAGE ARTS TEACHER Legal Sex Male 5:16 AM LANGUAGE ARTS TEACHER Gender Identity Male 11/27/2023 8:24 PM LANGUAGE ARTS TEACHER Sexual Orientation Straight 11/27/2023 8: 24 PM LANGUAGE ARTS TEACHER documented as of this encounter Plan of Treatment Not on file documented as of this encounter Visit Diagnoses Not on filedocumented in this encounter Care Teams Auto Specialty Services Manager Relationship Specialty Start Date End Date Nathan Puentes MD [address] [place] [address] PCP - General Family Practice 05/26/23 documented as of this encounter
--- OUTSIDE RECORDS SUMMARY | 2025-09-04 12:46 | XMS_ITS | Clinical Summary ---
Author Organization [facility] Address [address] [place] [address] Care Team Providers Care Improvement Auditor Name Role Phone Nathan Puentes MD Primary [...] on file Legal Sex Male 12:07 AM WHARF TENDER HEAD Gender Identity Not on file Sexual Orientation Not on file Last Filed Vital Signs Vital Sign Reading Time Taken Comments Blood Pressure 148/91 12/09/2022 2:34 PM WHARF TENDER HEAD Pulse 103 12/09/2022 2:34 PM WHARF TENDER HEAD Temperature 36.6 C (97.8 F) 07/21/2022 10:36 AM CDT Respiratory Rate 18 07/21/2022 12:55 PM CDT Oxygen Saturation 94% 07/21/2022 12:55 PM CDT Inhaled Oxygen Concentration - - Weight 115.2 kg (254 lb) 12/09/2022 2:34 PM WHARF TENDER HEAD Height 160 cm (5' 3) 12/09/2022 2:34 PM WHARF TENDER HEAD Body Mass Index 44.99 12/09/2022 2:34 PM WHARF TENDER HEAD Plan of Treatment Health Maintenance Due Date [...] topic Insurance MEDICARE MEDICARE MEDICARE Care Teams Improvement Auditor Relationship Specialty Start Date End Date Nathan Puentes MD PCP - General Family Practice 12/09/22
--- OUTSIDE RECORDS SUMMARY | 2025-09-04 12:46 | XMS_ITS | Encounter Summary ---
Author Organization [facility] Address [address] [place] [address] Care Team Providers Care Technical Education Teacher Name Role Phone Nathan Puentes MD Primary Care Provider Encounter Details Date Type Department Care Team (Latest Contact Info) Description 04/18/2007 [facility] Héctor Ayala MD [address] [place] [address] Unspecified Backache (Primary Dx) Social History Tobacco Use Types Packs/Day Years Used Date Smoking Tobacco: Never Assessed Sex and Gender Information Value Date Recorded Sex Assigned at Male 11/27/2023 8:24 PM MOTORCYCLE MAKER Legal Sex Male 5:16 AM MOTORCYCLE MAKER Gender Identity Male 11/27/2023 8:24 PM MOTORCYCLE MAKER Sexual Orientation Straight 11/27/2023 8: 24 PM MOTORCYCLE MAKER documented as of this encounter Plan of Treatment Not on file documented as of this encounter Visit Diagnoses Diagnosis Backache, unspecified- Primary documented in this encounter Care Teams Technical Education Teacher Relationship Specialty Start Date End Date Nathan Puentes MD [address] [place] [address] PCP - General Family Practice 05/26/23 documented as of this encounter
--- OUTSIDE RECORDS SUMMARY | 2025-09-04 12:46 | XMS_ITS | Encounter Summary ---
Author Organization [facility] Address [address] [place] [address] Care Team Providers Care Allergist/Pediatric Pulmonologist Name Role Phone Nathan Puentes MD Primary Care Provider Encounter Details Date Type Department Care Team (Latest Contact Info) Description 11/29/2006 Outpatient Historical [facility] Héctor Ayala MD [address] [place] [address] Follow-Up Examination, Following Other Surgery (Primary Dx) Social History Tobacco Use Types Packs/Day Years Used Date Smoking Tobacco: Never Assessed Sex and Gender Information Value Date Recorded Sex Assigned at Male 11/27/2023 8:24 PM NUCLEAR MEDICINE OFFICER Legal Sex Male 5:16 AM NUCLEAR MEDICINE OFFICER Gender Identity Male 11/27/2023 8:24 PM NUCLEAR MEDICINE OFFICER Sexual Orientation Straight 11/27/2023 8: 24 PM NUCLEAR MEDICINE OFFICER documented as of this encounter Plan of Treatment Not on file documented as of this encounter Visit Diagnoses Diagnosis Follow-up examination, following other surgery- Primary documented in this encounter Care Teams Allergist/Pediatric Pulmonologist Relationship Specialty Start Date End Date Nathan Puentes MD [address] [place] [phone] PCP - General Family Practice 05/26/23 documented as of this encounter
--- OUTSIDE RECORDS SUMMARY | 2025-09-04 12:46 | XMS_ITS | Encounter Summary ---
Author Organization [facility] Address [address] [place] [address] Care Team Providers Care Home Appraiser Name Role Phone Nathan Puentes MD Primary Care Provider Encounter Details Date Type Department Care Team (Latest Contact Info) Description 07/16/2007 Outpatient [facility] Héctor Ayala MD [address] [place] [address] Follow-Up Examination, Following Other Surgery (Primary Dx) Social History Tobacco Use Types Packs/Day Years Used Date Smoking Tobacco: Never Assessed Sex and Gender Information Value Date Recorded Sex Assigned at Male 11/27/2023 8:24 PM TRUCK HOP Legal Sex Male 5:16 AM TRUCK HOP Gender Identity Male 11/27/2023 8:24 PM TRUCK HOP Sexual Orientation Straight 11/27/2023 8: 24 PM TRUCK HOP documented as of this encounter Plan of Treatment Not on file documented as of this encounter Visit Diagnoses Diagnosis Follow-up examination, following other surgery- Primary documented in this encounter Care Teams Home Appraiser Relationship Specialty Start Date End Date Nathan Puentes MD [address] [place] [phone] PCP - General Family Practice 05/26/23 documented as of this encounter
--- OUTSIDE RECORDS SUMMARY | 2025-09-04 12:46 | XMS_ITS | Clinical Summary ---
Author Organization [facility] [employer] Address [address] [place] [address] Care Team Providers Care Marketing Sales Representative Name Role Phone Nathan Puentes MD Primary [...] Sex Assigned at Male 11/27/2023 8:24 PM OREMAN Legal Sex Male 5:16 AM OREMAN Gender Identity Male 11/27/2023 8:24 PM OREMAN Sexual Orientation Straight 11/27/2023 8: 24 PM OREMAN Last Filed Vital Signs Vital Sign Reading Time Taken Comments Blood Pressure 139/84 11/28/2023 11:17 AM OREMAN Pulse 83 11/28/2023 11:17 AM OREMAN Temperature 36.6 C (97.9 F) 11/28/2023 11:17 AM OREMAN Respiratory Rate 14 11/28/2023 11:17 AM OREMAN Oxygen Saturation 97% 11/28/2023 11:17 AM OREMAN Inhaled Oxygen Concentration - - Weight 91.2 kg (201 lb) 11/28/2023 11:17 AM OREMAN Height 165.1 cm (5' 5) 05/19/2022 3:30 [...] MEDICARE PART A AND B Care Teams Marketing Sales Representative Relationship Specialty Start Date End Date Nathan Puentes MD [address] [place] [address] PCP - General Family Practice 05/26/23
--- OUTSIDE RECORDS SUMMARY | 2025-09-04 12:46 | XMS_ITS | Encounter Summary ---
Author Organization [facility] Address [address] [place] [address] Care Team Providers Care Storeroom Attendant Name Role Phone Nathan Puentes MD Primary Care Provider Encounter Details Date Type Department Care Team (Latest Contact Info) Description 02/21/2007 Outpatient Historical [facility] Héctor Ayala MD [address] [place] [address] Follow-Up Examination, Following Other Surgery (Primary Dx) Social History Tobacco Use Types Packs/Day Years Used Date Smoking Tobacco: Never Assessed Sex and Gender Information Value Date Recorded Sex Assigned at Male 11/27/2023 8:24 PM HAM FACER Legal Sex Male 5:16 AM HAM FACER Gender Identity Male 11/27/2023 8:24 PM HAM FACER Sexual Orientation Straight 11/27/2023 8: 24 PM HAM FACER documented as of this encounter Plan of Treatment Not on file documented as of this encounter Visit Diagnoses Diagnosis Follow-up examination, following other surgery- Primary documented in this encounter Care Teams Storeroom Attendant Relationship Specialty Start Date End Date Nathan Puentes MD [address] [place] [phone] PCP - General Family Practice 05/26/23 documented as of this encounter
--- OUTSIDE RECORDS SUMMARY | 2025-09-04 12:46 | XMS_ITS | Encounter Summary ---
Author Organization [facility] Address [address] [place] [address] Care Team Providers Care Cable Spooler Name Role Phone Nathan Puentes MD Primary Care Provider Encounter Details Date Type Department Care Team (Latest Contact Info) Description 12/27/2006 Outpatient Historical [facility] Héctor Ayala MD [address] [address] [place] [address] Follow-Up Examination, Following Other Surgery (Primary Dx) Social History Tobacco Use Types Packs/Day Years Used Date Smoking Tobacco: Never Assessed Sex and Gender Information Value Date Recorded Sex Assigned at Male 11/27/2023 8:24 PM BIOCHEMICAL DEVELOPMENT ENGINEER Legal Sex Male 5:16 AM BIOCHEMICAL DEVELOPMENT ENGINEER Gender Identity Male 11/27/2023 8:24 PM BIOCHEMICAL DEVELOPMENT ENGINEER Sexual Orientation Straight 11/27/2023 8: 24 PM BIOCHEMICAL DEVELOPMENT ENGINEER documented as of this encounter Plan of Treatment Not on file documented as of this encounter Visit Diagnoses Diagnosis Follow-up examination, following other surgery- Primary documented in this encounter Care Teams Cable Spooler Relationship Specialty Start Date End Date Nathan Puentes MD [address] [place] [phone] PCP - General Family Practice 05/26/23 documented as of this encounter
--- NOTE | 2025-09-04 12:47 | ECG_ITS ---
Test Date: 2025-09-04 13:07:04 Measurements Intervals [place] Rate: 81 P: 39 NC: 155 QRS: 46 QRSD: 96 T: 35 QT: 341 QTc: 398 Interpretive Statements SINUS RHYTHM NONSPECIFIC T-WAVE ABNORMALITY WARNING: DATA QUALITY MAY AFFECT INTERPRETATION No previous ECG available for comparison Electronically Signed On 09-04-2025 13:57:27 RESIDENTIAL CHILD CARE COUNSELOR by Alex Luna M.D.
[2025-09-04 13:21] LABS: Hematocrit 48.2 % (42.0-52.0); Hemoglobin 15.5 g/dL (14.0-18.0); Mean Corpuscular HGB Conc 32.2 g/dl (32-36); Mean Corpuscular Hemoglobin 29.2 pg (26-34); Mean Corpuscular Volume 90.9 fl (80-100); Platelet Count Result 224 k/mm3 (150-375); Red Blood Count 5.30 M/mm3 (4.6-6.20); White Blood Count 6.6 K/mm3 (4.5-10.0)
[2025-09-04 13:25] LABS: Add Urine Microscopic? NO; Appearance Urine Clear (Clear); Glucose Urine UA Negative (Negative); Leukocyte Esterase Ur Negative LEU/UL (Negative); Nitrate Urine Negative (Negative); Specific Grav Ur 1.017 (1.001-1.035)
[2025-09-04 13:44] LABS: Anion Gap 8 mmol/L (4-12); Blood Urea Nitrogen 20 mg/dL (9-20); Calcium 9.7 mg/dL (8.4-10.2); Carbon Dioxide 30 mmol/L (22-30); Chloride 104 mmol/L (98-107); Estimated Glomerular Filt Rate > 60; Glucose 94 mg/dL (65-110); Potassium 4.3 mmol/L (3.4-5.0); Sodium 142 mmol/L (137-145)
[2025-09-04 13:50] LABS: INR 1.0; Prothrombin Time 12.9 Seconds (11.1-14.7)
[2025-09-04 13:51] LABS: Partial Thromboplastin Time 27.5 Seconds (22.3-36.8)
== END 2025-09-04 11:41 | disposition home or self-care (01) ==
LOC: ANHSURGERY 11:45
PROVIDERS: PCP Nurse Practitioner Family; Visit Provider Neurological Surgery
DX: M54.12 Radiculopathy, cervical region (principal); Z01.818 Encounter for other preprocedural examination
CPT/HCPCS: 36415; 71046; 80048; 81003; 85027; 85610; 85730; 93005

== ENCOUNTER 2025-09-08 08:12 | Outpatient (CLI) | payer MEDICARE, SELFPAY ==
--- NOTE | ~2025-09-08 | NM_ITS ---
EXAMINATION: NM marilou stress w perfusion DATE: 09/08/2025 11:19 INDICATION: Encounter for preprocedural cardiovascular examination TECHNIQUE: Rest images were obtained following intravenous administration of 10.6 mCi Tc99m tetrofosmin (Myoview). The patient was infused intravenously with Lexiscan (Regadenoson). Then, 33 mCi Tc99m tetrofosmin (Myoview) was administered intravenously, and stress images were obtained. Data was recons tructed into short axis and horizontal and vertical long axis SPECT images. Gated SPECT images were also obtained. COMPARISON: None. FINDINGS: There is no definite reversible or fixed perfusion abnormality to suggest ischemia or infarction. There is normal left ventricular chamber size, wall motion and ejection fraction. Left ventricular ejection fraction measures 70%. IMPRESSION: 1. Normal myocardial perfusion at rest and during stress. 2. Left ventricular ejection fraction measuring 70%. Reviewed, dictated and finalized at location A. FITS SALES CONSULTANT
--- NOTE | 2025-09-08 08:28 | EST_ITS ---
Patient Info Name: Vu Porter Age: 55 years : 1970 Gender: Male Ht: 55 in Wt: 230 lbs BSA: 2.09 m2 HR: 75 bpm BP: 147 / 87 mmHg Exam Date: 09/08/2025 8:28 AM Patient Status: O Admit Date: 09/08/2025 Exam Type: CA stress marilou w NM A regadenoson stress test was performed. Staff Referring Physician: Mendez Laguna DO Attending Provider: Mendez Laguna DO Exercise Technologist: Danuta Villeda Exercise Physician: Mendez Laguna DO Summary 1. 1. Negative lexiscan stress test for ischemic ST changes by ECG criteria. 2. 2. Baseline hypertension. 3. 3. Nuclear scan to follow and will be reported separately. Please correlate with it. 4. 4. Patient informed of the above results. Protocol: Lexiscan Stress ECG Details Stage: REST Duration (min): 0 min : 59 sec HR (bpm): 75 SBP (mmHg): 147 DBP (mmHg): 87 Stage: REST Duration (min): 11 min : 36 sec HR (bpm): 78 SBP (mmHg): 147 DBP (mmHg): 87 Stage: STAGE 1 Duration (min): 1 min : 0 sec HR (bpm): 98 SBP (mmHg): 147 DBP (mmHg): 101 Stage: RECOVERY Duration (min): 1 min : 0 sec HR (bpm): 97 SBP (mmHg): 147 DBP (mmHg): 101 Stage: RECOVERY Duration (min): 2 min : 0 sec HR (bpm): 91 SBP (mmHg): 147 DBP (mmHg): 101 Stage: RECOVERY Duration (min): 3 min : 0 sec HR (bpm): 86 SBP (mmHg): 149 DBP (mmHg): 95 Stage: RECOVERY Duration (min): 3 min : 3 sec HR (bpm): 85 SBP (mmHg): 149 DBP (mmHg): 95 Rest HR: 78 bpm Peak HR: 98 bpm Rest Sys BP: 147 mmHg Peak Sys BP: 149 mmHg Max Pred HR: 163 bpm % Max Pred HR: 60 % Target HR: 139 bpm Max RPP: 14,602 bpm*mmHg Termination Reason: Completed protocol Cardiac Symptoms: Shortness of breath Total Time: 1 min : 0 sec Rest Garcia BP: 87 mmHg Peak Garcia BP: 95 mmHg Total Dose: 0.4 mg Resting ECG Sinus rhythm. Stress ECG No ST changes. Arrhythmias None. Report Signatures
== END 2025-09-08 08:13 | disposition home or self-care (01) ==
PROVIDERS: PCP Nurse Practitioner Family; Visit Provider Internal Medicine Cardiovascular Disease
DX: Z01.810 Encounter for preprocedural cardiovascular examination (principal)
CPT/HCPCS: 78452; 93017; A9502; J2785

== ENCOUNTER 2025-09-24 08:23 | Inpatient (IN) | payer MEDICARE, SELFPAY ==
[2025-09-04 12:11] VITALS: BP 132/83; PULSE 80; RESP 16; TEMP 36.8; O2SAT 95; BMI 40.6
--- NOTE | 2025-09-04 12:27 | PC.NURSE ---
[facility] has started construction of its new state of the art ER which will open Spring 2026. With this, we anticipate parking may be a challenge for some our surgical patients and families. Parking spaces are limited but are available for all Surgical, obstetrics, and ER patients sharing this lot. If you arrive and find you are having a hard time finding a parking space, please note that we understand the challenges, please drive around the hospital and park near Hospital Entrance 1. When you enter this entrance, you can ask a volunteer to direct or take you back to the surgical waiting area to check in. We appreciate everyone?s understanding of these expected challenges while we build for your future. Report to the Outpatient Waiting Room, entrance under the green pavilion located off [address], at time ___6:00AM__ on date ___09/24/25___. Planned Procedure Time: ___7:30AM___.? Time changes happen often and if your time is changed the preop area will call you the afternoon before. - You and your visitor will be asked to self-screen and do not enter if you have any COVID symptoms. Please call surgeon if you need to reschedule. - A mask is optional within the hospital at this time. Patients may have clear liquids (water, carbonated beverages, clear teas, apple juice) until 3 hours prior to surgery (4:30AM) with a maximum of 20 ounces. - No food from midnight until time of surgery and no smoking, or chewing tobacco (or any form of nicotine). No chewing gum, candy or mints. Take only the following medications with a SIP of water on the morning of surgery: __CITALOPRAM___. MAY TAKE LORAZEPAM NEEDED FOR ANXIETY. DO NOT STOP ANY OF YOUR OTHER PRESCRIPTION MEDICATIONS PRIOR TO SURGERY EXCEPT THE FOLLOWING Hold all vitamins and supplements for 3 days per anesthesiologist. Medications to discontinue per physician ____HOLD NAPROXEN(ALL NSAIDS) AND ASPIRIN 7 DAYS PRE-OP PER DR DEE Date to take last dose 09/16/25 Please no make-up, nail welsh, hairspray, perfume, deodorant, or body powder the day of surgery.? No jewelry (including any body piercings) or valuables the day of surgery, leave them at home.? Please take a shower or bath the night before, or the morning of, surgery with an antibacterial soap.? Wear comfortable, loose fitting clothing.? - Jewelry must be removed prior to entering the operating room.? Rings and piercings that are not removed may be cut off. - The hospital will not accept responsibility for valuables.? - Please leave all valuables, including medications, at home the day of surgery. If you are going home after surgery, a licensed experienced truck driver must drive you home.? - NO public transportation without another adult if you receive anesthesia. - We recommend that an adult stay with you for 24 hours following discharge. - We also recommend that you do not drive, make important decision, drink alcoholic beverages, or take any drugs that were not prescribed by your health care provider for at least 24 hours after your discharge time. Follow any additional instructions given to you from your surgeon. Telephone instructions given to ____PATIENT and asked if any additional questions and then verbalized understanding. Patient advised to call surgeon office or pre surgery nurse liaison [phone] if any additional questions.
[2025-09-24] VITALS (14 sets, daily range): BP systolic 100–154; BP diastolic 54–82; PULSE 78–93; RESP 13–24; TEMP 36.4–37; O2SAT 92–97; BMI 40.8
--- NOTE | ~2025-09-24 | XR_ITS ---
EXAMINATION: XR fluoroscopy no charge DATE: 09/24/2025 11:24 INDICATION: Lower cervical anterior cervical discectomy TECHNIQUE: 4 fluoroscopic images of the cervical spine were obtained procedure performed by Dr. Manley. Radiologist was not present for the imaging or procedure. The amount of fluoroscopy time used during this procedure was 0.2 minutes. The dose area product was 0.7992 Gycm^2. COMPARISON: None. FINDINGS: Initial image demonstrates endotracheal tube and nasogastric tube extending into the proximal trachea and esophagus respectively. Subsequent images demonstrate discectomies and instrumented C4-C7 anterior spinal fusion with interbody fusion devices at each of the 3 disc spaces and anterior plate-screw fixation. IMPRESSION: 1. Fluoroscopy utilized during instrumented C4-C7 anterior spinal fusion. See procedure note for further detail. Reviewed, dictated and finalized at location A. BING CONTRACTOR IMPRESSION: 1. Fluoroscopy utilized during instrumented C4-C7 anterior spinal fusion. See p rocedure note for further detail.
--- NOTE | ~2025-09-24 | US_ITS ---
EXAMINATION: US right upper quadrant DATE: 09/26/2025 08:13 INDICATION: Abdominal pain. Concern for gallstones and acute cholecystitis. TECHNIQUE: Multiple grayscale and Doppler ultrasound images of the abdomen were obtained. COMPARISON: CT dated 01/02/2008 FINDINGS: The pancreatic head and body are normal in appearance. The pancreatic head and tail are obscured. Liver has normal echogenicity and contour, with a smooth surface. 2.1 cm anechoic cyst in the left hepatic lobe.. No intrahepatic biliary duct dilation suspected. Portal venous flow was seen in the hepatopetal, normal direction and has normal Doppler waveform. The gallbladder is normal in appearance. There is no cholelithiasis. The common bile duct measures 6 mm, which is normal. Sonographic Palacios sign was reported as negative by the metal molder. The visualized proximal inferior vena cava is normal. IMPRESSION: 1. 2.1 cm hepatic cyst. Otherwise normal right upper quadrant ultrasound. Reviewed, dictated and finalized at location A. WORKER
--- OUTSIDE RECORDS SUMMARY | 2025-09-24 01:10 | XMS_ITS | Encounter Summary ---
Author Organization [employer] Address [address] [place] [address] Care Team Providers Care Director Chemistry Name Role Phone Nathan Puentes MD Primary Care Provider Encounter Details Date Type Department Care Team (Latest Contact Info) Description 11/29/2006 Outpatient [facility] Héctor Ayala MD [address] [place] [address] Follow-Up Examination, Following Other Surgery (Primary Dx) Social History Tobacco Use Types Packs/Day Years Used Date Smoking Tobacco: Never Assessed Sex and Gender Information Value Date Recorded Sex Assigned at Male 11/27/2023 8:24 PM BUSINESS RELATIONS MANAGER Legal Sex Male 5:16 AM BUSINESS RELATIONS MANAGER Gender Identity Male 11/27/2023 8:24 PM BUSINESS RELATIONS MANAGER Sexual Orientation Straight 11/27/2023 8: 24 PM BUSINESS RELATIONS MANAGER documented as of this encounter Plan of Treatment Not on file documented as of this encounter Visit Diagnoses Diagnosis Follow-up examination, following other surgery- Primary documented in this encounter Care Teams Director Chemistry Relationship Specialty Start Date End Date Nathan Puentes MD [address] [place] [phone] PCP - General Family Practice 05/26/23 documented as of this encounter
--- OUTSIDE RECORDS SUMMARY | 2025-09-24 01:10 | XMS_ITS | Encounter Summary ---
Author Organization [email or web address] Address [address] [place] [address] Care Team Providers Care Fly Winder Name Role Phone Nathan Puentes MD Primary Care Provider Encounter Details Date Type Department Care Team (Latest Contact Info) Description 01/24/2007 Outpatient [facility] Héctor Ayala MD [address] [place] [address] Arthrodesis Status (Primary Dx) Social History Tobacco Use Types Packs/Day Years Used Date Smoking Tobacco: Never Assessed Sex and Gender Information Value Date Recorded Sex Assigned at Male 11/27/2023 8:24 PM THEATRE DIRECTOR Legal Sex Male 5:16 AM THEATRE DIRECTOR Gender Identity Male 11/27/2023 8:24 PM THEATRE DIRECTOR Sexual Orientation Straight 11/27/2023 8: 24 PM THEATRE DIRECTOR documented as of this encounter Plan of Treatment Not on file documented as of this encounter Visit Diagnoses Diagnosis Arthrodesis status- Primary documented in this encounter Care Teams Fly Winder Relationship Specialty Start Date End Date Nathan Puentes MD [address] [place] [phone] PCP - General Family Practice 05/26/23 documented as of this encounter
--- OUTSIDE RECORDS SUMMARY | 2025-09-24 01:10 | XMS_ITS | Encounter Summary ---
Author Organization [facility] Address [address] [place] [address] Care Team Providers Care Staff Electronic Warfare Officer Name Role Phone Nathan Puentes MD Primary Care Provider Encounter Details Date Type Department Care Team (Late st Contact Info) Description 12/27/2006 Outpatient Historical [facility] Blood Flow [address] [place] [address] Paul Vizcaino MD [address] [place], [place] [id number] Social History Tobacco Use Types Packs/Day Years Used Date Smoking Tobacco: Never Assessed Sex and Gender Information Value Date Recorded Sex Assigned at Male 11/27/2023 8:24 PM MUSIC PASTOR Legal Sex Male 5:16 AM MUSIC PASTOR Gender Identity Male 11/27/2023 8:24 PM MUSIC PASTOR Sexual Orientation Straight 11/27/2023 8: 24 PM MUSIC PASTOR documented as of this encounter Plan of Treatment Not on file documented as of this encounter Visit Diagnoses Not on filedocumented in this encounter Care Teams Staff Electronic Warfare Officer Relationship Specialty Start Date End Date Nathan Puentes MD [address] [place] [address] PCP - General Family Practice 05/26/23 documented as of this encounter
--- OUTSIDE RECORDS SUMMARY | 2025-09-24 01:10 | XMS_ITS | Encounter Summary ---
Author Organization [employer] Address [address] [place] [address] Care Team Providers Care Low Raw Sugar Cutter Name Role Phone Nathan Puentes MD Primary Care Provider Encounter Details Date Type Department Care Team (Latest Contact Info) Description 05/30/2007 Outpatient [facility] Héctor Ayala MD [address] [place] [address] Follow-Up Examination, Following Other Surgery (Primary Dx) Social History Tobacco Use Types Packs/Day Years Used Date Smoking Tobacco: Never Assessed Sex and Gender Information Value Date Recorded Sex Assigned at Male 11/27/2023 8:24 PM STORE SALES LEADER Legal Sex Male 5:16 AM STORE SALES LEADER Gender Identity Male 11/27/2023 8:24 PM STORE SALES LEADER Sexual Orientation Straight 11/27/2023 8: 24 PM STORE SALES LEADER documented as of this encounter Plan of Treatment Not on file documented as of this encounter Visit Diagnoses Diagnosis Follow-up examination, following other surgery- Primary documented in this encounter Care Teams Low Raw Sugar Cutter Relationship Specialty Start Date End Date Nathan Puentes MD [address] [place] [phone] PCP - General Family Practice 05/26/23 documented as of this encounter
--- OUTSIDE RECORDS SUMMARY | 2025-09-24 01:10 | XMS_ITS | Encounter Summary ---
Author Organization [employer] Address [address] [place] [address] Care Team Providers Care Hostess Name Role Phone Natahn Puentes MD Primary Care Provider Encounter Details Date Type Department Care Team (Latest Contact Info) Description 11/10/2006 Inpatient Historical [facility] Héctor Ayala MD [address] [place] [address] Disc Displacement (Primary Dx) Social History Tobacco Use Types Packs/Day Years Used Date Smoking Tobacco: Never Assessed Sex and Gender Information Value Date Recorded Sex Assigned at Male 11/27/2023 8:24 PM STATE GAME WARDEN Legal Sex Male 5:16 AM STATE GAME WARDEN Gender Identity Male 11/27/2023 8:24 PM STATE GAME WARDEN Sexual Orientation Straight 11/27/2023 8: 24 PM STATE GAME WARDEN documented as of this encounter Plan of Treatment Not on file documented as of this encounter Procedures Procedure Name Priority Date/Time Associated Diagnosis Comments HEMOGLOBIN AND HEMATOCRIT Routine 11/11/2006 5:45 AM STATE GAME WARDEN HEMOGLOBIN AND HEMATOCRIT Routine 11/10/2006 7:05 PM STATE GAME WARDEN HEMOGLOBIN AND HEMATOCRIT Routine 11/07/2006 12:09 PM STATE GAME WARDEN documented in this encounter Results * (ABNORMAL) HEMOGLOBIN AND HEMATOCRIT (11/11/2006 5:45 AM STATE GAME WARDEN) HEMOGLOBIN 11.8(L) 13.6 - 16.5 g/dL INTERFACE SYSTEM HEMATOCRIT 35.8(L) 40.0 - 48.0 % INTERFACE SYSTEM 11/11/2006 5:45 AM STATE GAME WARDEN us Héctor Ayala MD HEMATOLOGY ORDERABLES Edited Performing Organization Address [facility] Phone Number INTERFACE SYSTEM Refer to clinic/hospital department * (ABNORMAL) HEMOGLOBIN AND HEMATOCRIT (11/10/2006 7:05 PM STATE GAME WARDEN) HEMOGLOBIN 13.2(L) 13.6 - 16.5 g/dL INTERFACE SYSTEM HEMATOCRIT 39.8(L) 40.0 - 48.0 % INTERFACE SYSTEM 11/10/2006 7:05 PM STATE GAME WARDEN Héctor Ayala MD HEMATOLOGY ORDERABLES Edited Performing Organization Address [facility] Phone Number INTERFACE SYSTEM Refer to clinic/hospital department * HEMOGLOBIN AND HEMATOCRIT (11/07/2006 12:09 PM STATE GAME WARDEN) HEMOGLOBIN 16.3 13.6 - 16.5 g/dL INTERFACE SYSTEM HEMATOCRIT 47.3 40.0 - 48.0 % INTERFACE SYSTEM 11/07/2006 12:0 9 PM STATE GAME WARDEN us Héctor Ayala MD HEMATOLOGY ORDERABLES Edited Performing Organization Address [facility] Phone Number INTERFACE SYSTEM Refer to clinic/hospital department documented in this encounter Visit Diagnoses Diagnosis Displacement of intervertebral disc, site unspecified, without myelopathy- Primary documented in this encounter Care Teams Hostess Relationship Specialty Start Date End Date Nathan Puentes MD [address] [place] [address] PCP - General Family Practice 05/26/23 documented as of this encounter
--- OUTSIDE RECORDS SUMMARY | 2025-09-24 01:10 | XMS_ITS | Encounter Summary ---
Author Organization [employer] Address [address] [place] [address] Care Team Providers Care Clinical Trials Systems Administrator Name Role Phone Nathan Puentes MD Primary Care Provider Encounter Details Date Type Department Care Team (Latest Contact Info) Description 02/21/2007 Outpatient Historical [facility] Héctor Ayala MD [address] [place] [address] Follow-Up Examination, Following Other Surgery (Primary Dx) Social History Tobacco Use Types Packs/Day Years Used Date Smoking Tobacco: Never Assessed Sex and Gender Information Value Date Recorded Sex Assigned at Male 11/27/2023 8:24 PM PROCESS VALIDATION ENGINEER Legal Sex Male 5:16 AM PROCESS VALIDATION ENGINEER Gender Identity Male 11/27/2023 8:24 PM PROCESS VALIDATION ENGINEER Sexual Orientation Straight 11/27/2023 8: 24 PM PROCESS VALIDATION ENGINEER documented as of this encounter Plan of Treatment Not on file documented as of this encounter Visit Diagnoses Diagnosis Follow-up examination, following other surgery- Primary documented in this encounter Care Teams Clinical Trials Systems Administrator Relationship Specialty Start Date End Date Nathan Puentes MD [address] [place] [address] PCP - General Family Practice 05/26/23 documented as of this encounter
--- OUTSIDE RECORDS SUMMARY | 2025-09-24 01:10 | XMS_ITS | Encounter Summary ---
Author Organization [employer] Address [address] [place] [address] Care Team Providers Care Crowd Controller Name Role Phone Nathan Puentes MD Primary Care Provider Encounter Details Date Type Department Care Team (Latest Contact Info) Description 04/18/2007 Outpatient Historical [facility] Héctor Ayala MD [address] [place] [address] Unspecified Backache (Primary Dx) Social History Tobacco Use Types Packs/Day Years Used Date Smoking Tobacco: Never Assessed Sex and Gender Information Value Date Recorded Sex Assigned at Male 11/27/2023 8:24 PM PHARMACY INNOVATION ASSISTANT Legal Sex Male 5:16 AM PHARMACY INNOVATION ASSISTANT Gender Identity Male 11/27/2023 8:24 PM PHARMACY INNOVATION ASSISTANT Sexual Orientation Straight 11/27/2023 8: 24 PM PHARMACY INNOVATION ASSISTANT documented as of this encounter Plan of Treatment Not on file documented as of this encounter Visit Diagnoses Diagnosis Backache, unspecified- Primary documented in this encounter Care Teams Crowd Controller Relationship Specialty Start Date End Date Nathan Puentes MD [address] [place] [phone] PCP - General Family Practice 05/26/23 documented as of this encounter
--- OUTSIDE RECORDS SUMMARY | 2025-09-24 01:10 | XMS_ITS | Encounter Summary ---
Author Organization [employer] Address [address] [place] [address] Care Team Providers Care Rental Sales Associate Name Role Phone Nathan Puentes MD Primary Care Provider Encounter Details Date Type Department Care Team (Latest Contact Info) Description 07/16/2007 Outpatient Historical [facility] Héctor Ayala MD [address] [place] [address] Follow-Up Examination, Following Other Surgery (Primary Dx) Social History Tobacco Use Types Packs/Day Years Used Date Smoking Tobacco: Never Assessed Sex and Gender Information Value Date Recorded Sex Assigned at Male 11/27/2023 8:24 PM DIGITAL X RAY SERVICE ENGINEER Legal Sex Male 5:16 AM DIGITAL X RAY SERVICE ENGINEER Gender Identity Male 11/27/2023 8:24 PM DIGITAL X RAY SERVICE ENGINEER Sexual Orientation Straight 11/27/2023 8: 24 PM DIGITAL X RAY SERVICE ENGINEER documented as of this encounter Plan of Treatment Not on file documented as of this encounter Visit Diagnoses Diagnosis Follow-up examination, following other surgery- Primary documented in this encounter Care Teams Rental Sales Associate Relationship Specialty Start Date End Date Nathan Puentes MD [address] [place] [phone] PCP - General Family Practice 05/26/23 documented as of this encounter
--- OUTSIDE RECORDS SUMMARY | 2025-09-24 01:10 | XMS_ITS | Encounter Summary ---
Author Organization [facility] Address [address] [place] [address] Care Team Providers Care Ethanol Quality Leader Name Role Phone Nathan Puentes MD Primary Care Provider Encounter Details Date Type Department Care Team (Latest Contact Info) Description 12/27/2006 Outpatient Historical [facility] Héctor Ayala MD [address] [place] [address] Follow-Up Examination, Following Other Surgery (Primary Dx) Social History Tobacco Use Types Packs/Day Years Used Date Smoking Tobacco: Never Assessed Sex and Gender Information Value Date Recorded Sex Assigned at Male 11/27/2023 8:24 PM NURSE SUPERVISOR Legal Sex Male 5:16 AM NURSE SUPERVISOR Gender Identity Male 11/27/2023 8:24 PM NURSE SUPERVISOR Sexual Orientation Straight 11/27/2023 8: 24 PM NURSE SUPERVISOR documented as of this encounter Plan of Treatment Not on file documented as of this encounter Visit Diagnoses Diagnosis Follow-up examination, following other surgery- Primary documented in this encounter Care Teams Ethanol Quality Leader Relationship Specialty Start Date End Date Nathan Puentes MD [address] [place] [address] PCP - General Family Practice 05/26/23 documented as of this encounter
--- OUTSIDE RECORDS SUMMARY | 2025-09-24 01:10 | XMS_ITS | Clinical Summary ---
Author Organization [facility] Address [address] [place] [address] Care Team Providers Care E Commerce Merchant Name Role Phone Nathan Puentes MD Primary [...] on file Legal Sex Male 12:07 AM BOBBIN HANDLER Gender Identity Not on file Sexual Orientation Not on file Last Filed Vital Signs Vital Sign Reading Time Taken Comments Blood Pressure 148/91 12/09/2022 2:34 PM BOBBIN HANDLER Pulse 103 12/09/2022 2:34 PM BOBBIN HANDLER Temperature 36.6 C (97.8 F) 07/21/2022 10:36 AM CDT Respiratory Rate 18 07/21/2022 12:55 PM CDT Oxygen Saturation 94% 07/21/2022 12:55 PM CDT Inhaled Oxygen Concentration - - Weight 115.2 kg (254 lb) 12/09/2022 2:34 PM BOBBIN HANDLER Height 160 cm (5' 3) 12/09/2022 2:34 PM BOBBIN HANDLER Body Mass Index 44.99 12/09/2022 2:34 PM BOBBIN HANDLER Plan of Treatment Health Maintenance Due Date [...] topic Insurance MEDICARE MEDICARE MEDICARE Care Teams E Commerce Merchant Relationship Specialty Start Date End Date Nathan Puentes MD PCP - General Family Practice 12/09/22
[2025-09-24] MEDS: LACTATED RINGERS 1,000 ML 30 ML IV CONT ×2 (06:45→11:40)
--- NOTE | 2025-09-24 07:00 | P.PNAN_ITS ---
Anes - Initial Pre Proc Eval Procedure: Operation Date: 09/24/25 07:30 Proposed Procedures p Anterior Cervical Discectomy and Fusion C4-5, C5-6, C6-7 - Odette Manley MD Date/Time: 09/24/25 07:00 Surgeon: Odette Manley MD Pre Op Diagnosis: cervical radiculopathy Patient Data Age: 55 Gender: M Height: 1.66 m Weight: 112.6 kg Last Vital Signs Temp 36.8 C 09/04/25 12:11 Pulse 80 09/04/25 12:11 Resp 16 09/04/25 12:11 BP 132/83 09/04/25 12:11 Pulse Ox 95 09/04/25 12:11 O2 Del Method Room Air 09/04/25 12:11 Allergies Allergy/AdvReac Type Severity Reaction Status Date / Time erythromycin base Allergy Severe Anaphylaxis Verified 09/04/25 12:04 Home Medications ?Medication ?Instructions ?Recorded ?Confirmed ?Type lorazepam 0.5 mg tablet 0.5 mg PO BID PRN anxiety #6 0 tabs 02/06/25 09/24/25 Rx citalopram 20 mg tablet 20 mg PO DAILY #90 tabs 03/2309/24/25 Rx fluticasone propionate 50 2 spray intranasal DAILY PRN 04/02/25 09/24/25 Rx mcg/actuation nasal allergy symptoms #16 grams spray,suspension (Flonase Allergy Relief) naproxen 500 mg tablet 500 mg PO BID PRN pain #60 t abs 04/02/25 09/24/25 Rx tizanidine 4 mg tablet 4 mg PO Q8H PRN muscle spast icity 04/02/25 09/24/25 Rx #90 tabs trazodone 50 mg tablet 50 mg PO QHS PRN insomnia #3 0 tabs 04/02/25 09/24/25 Rx lansoprazole 30 mg capsule,delayed 30 mg PO DAILY #90 caps 06/04/25 09/24/25 Rx release aspirin 81 mg tablet,delayed 81 mg PO DAILY 09/04/25 1 11/25/24 History release (Adult Low Dose Aspirin) Laboratory Tests 09/24/25 06:51 Blood Type Pending Antibody Screen Pending Patient hx anesthesia problems: none Family hx anesthesia problems: none Results Review: All pre-operative results and documents have been reviewed as part of the pre- operative evaluation. [facility] Past Medical History Medical History Erectile dysfunction History of wheezing Chronic neck and back pain GERD (gastroesophageal reflux disease) Morbid obesity with BMI of 40.0-44.9, adult Anxiety Hypogonadism in male Mild episode of recurrent major depressive disorder LISBET (obstructive sleep apnea) History of esophageal stricture 08/21/2018 Surgical History Surgical History S/P hemorrhoidectomy (~04/2023) REUA, external hemorrhoidectomy involving left lateral and right anterior positions 04/24/23 H/O excision of mass (~12/10/21) 3x3cm RUE mass 12/10/21 History of right knee joint replacement (~2020) History of esophageal dilatation 4 times, last in 1999 History of tonsillectomy History of left inguinal hernia repair (~1989) 1989 History of lumbosacral spine surgery (~2004) 2004 History of arthroplasty of both knees (~2004) 2004 to 2008 History of vasectomy (~1995) 1995 History of arthroscopy of shoulder (~2007) 2007 Family History Family History Mother Lung cancer Diabetes mellitus Hypertension Heart disease Father Diabetes mellitus Heart disease Hypertension Other Family history of coronary artery disease Family history of renal cell carcinoma Social History Social History Social History: Caffeine- tea Smoking status: Never smoker Second hand tobacco smoke exposure: No Alcohol intake: current Alcohol use details: occasionally Substance use: never Substance use type: does not use Lack of Transportation: No Lack of Food: Never True Current Housing: I Have Housing Concerned About Future Housing: No Difficulty Paying Gas/Electric Bills: YES Difficulty Paying for Meds: No Currently Unemployed: No Education: Trade/Vocational Certificate Difficulty w/ Childcare or Family Care: No Living arrangements: with family Occupation/Education: unemployed Additional occupation/education comments: Disabled Gender identity (if verbalized by the patient): Male Sexual Orientation (if Verbalized by the Patient): Straight or Heterosexual Spiritual care concerns: No Agree to blood products: Yes Anes - Eval Final PreProcedure Day of Procedure 09/24/25 07:00 Patient weight: morbidly obese Heart: regular rate and rhythm Lungs: clear to auscultation Airway: Mallampati scale class III and special considerations (radiculopathy symptoms in arms with neck extension) poor dentition Neurological: alert and oriented Last oral intake: >/= 8 hours ASA classification: III Emergent: no Anesthetic plan: proceed Anesthesia type and monitoring: general ETT and standard monitoring Results Review: All pre-operative results and documents have been reviewed as part of the pre- operative evaluation. Informed Consent: The patient's anesthetic plan and its attendant risks and benefits were discussed with the patient/family/POA. Questions were solicited and answers provided to the satisfaction of the patient/family/POA.
--- NOTE | 2025-09-24 07:17 | P.HP_ITS ---
H&P: HPI History of Present Illness Date/Time: 09/24/25 07:17 Chief Complaint: neck and arm pain Narrative: From 06/05: Mr. Porter is a 54-year-old male with history of diastolic dysfunction and previous lumbar spine surgeries who presents for evaluation of neck and arm pain. His symptoms started about a year and half ago after having a shoulder surgery. He has relatively constant pain in his neck that radiates down the right arm into the 1st 4 fingers. He describes a burning pain into his hand with numbness that is constant. He has intermittent symptoms on the left side to a lesser extent. His symptoms are dependent on his neck position. He previously was able to get some relief by tacking his chin, but this is no longer helpful for his right arm. He takes tizanidine and naproxen for this which are also prescribed for his lower back. He was doing some therapy exercises through his chiropractor but has not had formal physical therapy. He is scheduled to an injection with Dr. Vicente on Monday. He had seen Ning who recommended surgical evaluation due to some possible myelopathic symptoms. He does describe difficulty with gripping objects and a generalized sense of weakness in the arms. He he has not noticed any difficulty with balance, tripping, or falling. He denies any changes in his bowel or bladder function. He notably has had a previous L2-[address] Ayala in around 2006. He has ongoing back and leg symptoms for which he is on disability. He takes a baby aspirin and follows with shift supervisor melting Dr. Laguna. From 08/07: He returns today after having physical therapy and 2 epidural steroid injection this. Neither of these was helpful for him on a long-term basis. It sounds like the C5-6 injection gave him more temporary relief than the C7-T1 injection. He denies any new symptoms since his last visit. He continues to have bilateral radicular arm pain and paresthesias into all fingers, worse on the right side. [facility] Past Medical History Medical History Erectile dysfunction History of wheezing Chronic neck and back pain GERD (gastroesophageal reflux disease) Morbid obesity with BMI of 40.0-44.9, adult Anxiety Hypogonadism in male Mild episode of recurrent major depressive disorder LISBET (obstructive sleep apnea) History of esophageal stricture 08/21/2018 Surgical History Surgical History S/P hemorrhoidectomy (~04/2023) REUA, external hemorrhoidectomy involving left lateral and right anterior positions 04/24/23 H/O excision of mass (~12/10/21) 3x3cm RUE mass 12/10/21 History of right knee joint replacement (~2020) History of esophageal dilatation 4 times, last in 1999 History of tonsillectomy History of left inguinal hernia repair (~1989) 1989 History of lumbosacral spine surgery (~2004) 2004 History of arthroplasty of both knees (~2004) 2004 to 2008 History of vasectomy (~1995) 1995 History of arthroscopy of shoulder (~2007) 2007 Family History Family History Mother Lung cancer Diabetes mellitus Hypertension Heart disease Father Diabetes mellitus Heart disease Hypertension Other Family history of coronary artery disease Family history of renal cell carcinoma Social History Social History Social History: Caffeine- tea Smoking status: Never smoker Second hand tobacco smoke exposure: No Alcohol intake: current Alcohol use details: occasionally Substance use: never Substance use type: does not use Lack of Transportation: No Lack of Food: Never True Current Housing: I Have Housing Concerned About Future Housing: No Difficulty Paying Gas/Electric Bills: YES Difficulty Paying for Meds: No Currently Unemployed: No Education: Trade/Vocational Certificate Difficulty w/ Childcare or Family Care: No Living arrangements: with family Occupation/Education: unemployed Additional occupation/education comments: Disabled Gender identity (if verbalized by the patient): Male Sexual Orientation (if Verbalized by the Patient): Straight or Heterosexual Spiritual care concerns: No Agree to blood products: Yes Meds Home Medications and Allergies Home Medications ?Medication ?Instructions ?Recorded ?Confirmed ?Type lorazepam 0.5 mg tablet 0.5 mg PO BID PRN anxiety #6 0 tabs 02/06/25 09/24/25 Rx citalopram 20 mg tablet 20 mg PO DAILY #90 tabs 03/2309/24/25 Rx fluticasone propionate 50 2 spray intranasal DAILY PRN 04/02/25 09/24/25 Rx mcg/actuation nasal allergy symptoms #16 grams spray,suspension (Flonase Allergy Relief) naproxen 500 mg tablet 500 mg PO BID PRN pain #60 t abs 04/02/25 09/24/25 Rx tizanidine 4 mg tablet 4 mg PO Q8H PRN muscle spast icity 04/02/25 09/24/25 Rx #90 tabs trazodone 50 mg tablet 50 mg PO QHS PRN insomnia #3 0 tabs 04/02/25 09/24/25 Rx lansoprazole 30 mg capsule,delayed 30 mg PO DAILY #90 caps 06/04/25 09/24/25 Rx release aspirin 81 mg tablet,delayed 81 mg PO DAILY 09/04/25 1 11/25/24 History release (Adult Low Dose Aspirin) Allergies Allergy/AdvReac Type Severity Reaction Status Date / Time erythromycin base Allergy Severe Anaphylaxis Verified 09/04/25 12:04 Vital Signs Vital Signs - 24 hr 09/24/25 06:56 Temperature 98 F Pulse Rate 84 Blood Pressure 118/82 Pulse Oximetry 93 Oxygen Delivery Room Air Exam Narrative: Worsened neck pain in all directions of active movement No myelopathic signs No difficulty with tandem gait on my exam Negative Tinel's, Phalen's at carpal tunnel Unless otherwise stated above, the patient's physical exam is as follows: General: -Well developed and well nourished. No a cute distress. Cooperative with exam. Mental status: -Awake and oriented to person, place, an d time. Affect is normal. -Fund of knowledge appropriate -Recent and remote memory are intact -Attention span and concentration appear normal -Language function is normal -There is no evidence of aphasia in conv ersational speech. Cranial nerves: -CN II: Visual grayson full to bedside co nfrontation -CN III, IV, : Pupils equal, round, an d reactive to light; extraocular movements, no ptosis, no nystagmus -CN V: Facial sensation intact in V1 thr ough V3 distributions -CN VII: Face symmetric -CN VIII: Hearing intact to conversation al speech -CN IX, X: Palate elevates symmetrically ; normal phonation -CN XI: Symmetric full strength of jeffrey ocleidomastoid and trapezius muscles -CN XII: Tongue protrudes midline Integumentary: -No obvious skin lesions or masses Motor: -Muscle tone normal without spasticity o f flaccidity. No atrophy. No fasciculations. -No pronator drift -Right upper extremity: deltoid 5/5, bic eps 5/5, triceps 5/5, wrist extensors 5/5, wrist flexors 5/5, intrinsics 5/5 -Left upper extremity: deltoid 5/5, melvin ps 5/5, triceps 5/5, wrist extensors 5/5, wrist flexors 5/5, intrinsics 5/5 -Right lower extremity: iliopsoas 5/5, q uadriceps 5/5, hamstrings 5/5, tibialis anterior 5/5, gastroc-soleus 5/5, EHL 5/5 -Left lower extremity: iliopsoas 5/5, qu adriceps 5/5, hamstrings 5/5, tibialis anterior 5/5, gastroc-soleus 5/5, EHL 5/5 Sensory: -Intact to light touch throughout -Normal proprioception throughout Reflexes: -1-2+ DTR's throughout -No Granados's, clonus, or Babinski bilat erally Musculoskeletal: -Symmetric; no deformities, masses or te nderness; no known fractures -Cervical spine: no tenderness to palpat ion, no pain, and normal cervical spine movements. Normal cervical lordosis -Spurling's test negative -Tinel's sign negative -Shoulder: no pain on provocative testin g bilaterally -Elbow: no instability, subluxation, or laxity bilaterally I personally reviewed the MRI cervical spine which shows a left-sided disc herniation causing severe left and moderate right neuroforaminal stenosis at C4- 5. At C5-6, there is moderate central stenosis with severe right neuroforaminal stenosis. At C6-7, there is [id number] central stenosis with severe bilateral neuroforaminal stenosis. Assessment and Plan Assessment and plan (1) Cervical radiculopathy: Code(s): M54.12 - Radiculopathy, cervical region Status: Acute Plan Mr. Porter is a 55-year-old male with an 18-month history of neck pain with radiation of pain and numbness into both arms, worse on the right, involving the 1st 4 fingers. He does not have any focal deficit on my exam and specifically has no objective findings concerning for cervical myelopathy. I again reviewed his MRI cervical spine which shows left greater than right neuroforaminal stenosis at C4-5, moderate central stenosis and severe right neuroforaminal stenosis at C5-6, a moderate central stenosis with severe bilateral neuroforaminal stenosis at C6-7. I reviewed the imaging with him today. I have ultimately offered him surgery in the form of anterior cervical diskectomy and fusion C4-5, C5-6, and C6-7. We discussed surgery in detail i ncluding risks, expected recovery, and restrictions after surgery. We discussed the need to hold aspirin for 1 week before and 1 week after surgery. We will request cardiac clearance from Dr. Laguna.
--- NOTE | 2025-09-24 07:17 | WPDHPUPDATE1 ---
History and Physical Update Update Date/Time: 09/24/25 07:17 History and Physical has been reviewed, including an updated exam of the patient. There are NO changes in the patient's condition. Risks, benefits, and alternatives have been discussed and questions answered. Patient agrees to proceed with procedure.
[2025-09-24] MEDS: ceFAZolin 2 GM in SODIUM CHLORIDE 0.9% IV 50 ML 100 ML IVPB ×3 (07:27→23:04)
[2025-09-24] MEDS: BUPIVACAINE/EPINEPHRINE 0.5% 50 ML VIAL 30 ML INFILTRATE (08:47)
--- NOTE | 2025-09-24 11:47 | P.OP_ITS ---
Procedure Note - Detailed Date of Procedure 09/24/25 Pre-op Diagnosis cervical radiculopathy Post-op Diagnosis Same Procedure Performed 1. Anterior cervical discectomy and foraminotomy at C4-5, C5-6, C6-7 2. Anterior interbody placement at C4-5, C5-6, and C6-7 3. Arthrodesis of C4-5, C5-6, and C6-7 4. Preparation and placement of osteopromotive allograft for arthrodesis 5. Utilization of intraoperative C-Arm XR image guidance 6. Microscopic dissection Surgeon Odette Manley MD Obstetrics Gynecology [facility] Anesthesia General Description of Procedure The patient was taken to the operating room and was transferred to the operating table in the supine position. General anesthesia was induced. Pressure points were appropriately padded, and compression devices were placed on the patient's calves. A shoulder roll was placed. The surgical site was marked, and the appropriate level was confirmed with the C-arm XR imaging. The patient was prepped and draped in usual sterile fashion. Perioperative antibiotics were given. Time out was performed. Local anesthesia was injected into the planned incision site. Incision was made with a 10-blade scalpel. The subcutaneous tissue was undermined above the platysma with the Metzenbaum scissors. The platysma was sharply opened horizontally. Bleeding was controlled with the bipolar. The avascular plane to the spine was dissected sharply. The anterior border of the spine was located and exposed with sharp and blunt dissection. A spinal needle was used to localize the C4-5 disc space; this was confirmed on fluoroscopy. The longus coli muscles were elevated bilaterally with a bovie. Once the C4, C5, C6, and C7 vertebral bodies and adjacent intervertebral discs were adequately exposed, self-retaining retractors were placed. Fairfield pins were placed in the C4 and C5. The vertebral bodies and were distracted. A 15-blade scalpel was used to incise the C4-5 disc. A combination of Kerrisons, currettes, and pituitary instruments were used to remove each disc. The microscope was draped and brought into the surgical field. The removal of disc and osteophytes were completed using a high-speed drill, multiple Kerrison punches, and angled currettes. The posterior longitudinal ligament was opened with a currette and kerrison rongeurs until the neuroforamen bilaterally were adequately decompressed. Interbody trial instruments were used to determine the appropriate size for the prosthetic vertebral interbody cage. Hemostasis was achieved in the disc space with Floseal and cottonoid patties. A 7mm implant was filled with Magnetos and placed at the C4-5 level. The Fairfield pin in the body of C4 was removed, and the hole was filled with wax. The pin was placed in C6. The C5 and C6 vertebral bodies and were distracted. A 15-blade scalpel was used to incise the C5-6 disc. A combination of Kerrisons, currettes, and pituitary instruments were used to remove each disc. The removal of disc and osteophytes were completed using a high-speed drill, multiple Kerrison punches, and angled currettes. The posterior longitudinal ligament was opened with a currette and kerrison rongeurs until the neuroforamen bilaterally were adequately decompressed. Interbody trial instruments were used to determine the appropriate size for the prosthetic vertebral interbody cage. Hemostasis was achieved in the disc space with Floseal and cottonoid patties. A 5mm implant was filled with Magnetos and placed at the C5-6 level. The Fairfield pin in the body of C5 was removed, and the hole was filled with wax. The pin was placed in C7. The C6 and C7 vertebral bodies and were distracted. The diskectomy process was repeated at the C6-7 disc. The disc was removed as described above, and the posterior longitudinal ligament was opened until the neuroforamen bilaterally were adequately decompressed. Interbody trial instruments were used to determine the appropriate size for the prosthetic vertebral interbody cage. Hemostasis was achieved in the disc space. A 6mm implant was filled with Magnetos and placed at the C6-7 level. The Fairfield pins were removed, and bone wax was used for hemostasis. Osteophytes over the vertebral bodies were removed with a Leksell and high-speed drill. A 45mm plate was placed over the vertebral bodies and secured with 14mm screws. A ccurate hardware placement was confirmed with fluoroscopy. The surgical cavity was copiously irrigated; appropriate hemostasis was verified; and there was no evidence of dural tear/CSF leak. The platysma was closed with interrupted 3-0 Vicryl, followed by interrupted 3-0 Vicryl for the dermis, and 4-0 running subcuticular monocryl for the skin. Dermabond was placed. The patient was extubated, transferred to the bed, and taken to the PACU without incident. Billing codes: 21095, 33167h7, 09448, 30512s7, 08341 Estimated Blood Loss 25 Drains No Packing No Pathology None sent Complications None Condition Stable Disposition PACU [facility] Billing Surgery - Charge Forward: Surgery Billing
[2025-09-24] MEDS: HYDROmorphone HCL INJ (*CRX) 1 MG/ML SYR 0.5 MG IV PUSH ×2 (12:04→12:09)
[2025-09-24] MEDS: fentaNYL CITRATE INJ (*CRX) 100 MCG/2 ML VIAL 25 MCG IV PUSH ×4 (12:12→13:08)
--- NOTE | 2025-09-24 13:22 | ADMGEN ---
This patient, Vu Porter, was admitted to 3 [facility] Surg Room 319-01. Patient/family oriented to hospital policies and general routines including ID bracelet, bed and alarms, visiting hours, pain management, procedures, bathroom and other care routines, personal items, smoking policy, room service/diet, and visiting hours. Information on how to activate the Rapid Response Team has been discussed. Patient/Family are encouraged to report perceived risks to care and to ask questions if they do not understand what they are told or what they should do.
[2025-09-24] MEDS: TIZANIDINE HCL 4 MG TABLET PO (14:05)
[2025-09-24] MEDS: oxyCODONE HCL (*CRX) 5 MG TAB IR 10 MG PO ×3 (14:06→22:44)
[2025-09-24] MEDS: SODIUM CHLORIDE 0.9% IV 1,000 ML 100 ML IV CONT (14:06)
[2025-09-24] MEDS: MORPHINE SULFATE (*CRX) 4 MG/ML INJ 2 MG IV PUSH ×2 (15:23→20:20)
[2025-09-24] MEDS: ACETAMINOPHEN 500 MG TABLET 1000 MG PO ×2 (17:02→22:44)
[2025-09-24] MEDS: MAG HYDROX/AL HYDROX/SIMETH 30 ML UDC 20 ML PO (17:13)
[2025-09-24] MEDS: DOCUSATE SODIUM 100 MG CAPSULE PO (20:21)
[2025-09-25] VITALS (7 sets, daily range): BP systolic 100–134; BP diastolic 54–81; PULSE 76–95; RESP 16–26; TEMP 36.5–36.9; O2SAT 92–96
[2025-09-25] MEDS: MORPHINE SULFATE (*CRX) 4 MG/ML INJ 2 MG IV PUSH ×3 (00:10→23:29)
[2025-09-25] MEDS: LORazepam (*CRX) 0.5 MG TABLET PO (01:49)
[2025-09-25] MEDS: oxyCODONE HCL (*CRX) 5 MG TAB IR 10 MG PO ×4 (03:25→21:42)
[2025-09-25] MEDS: TIZANIDINE HCL 4 MG TABLET PO ×2 (04:58→19:57)
[2025-09-25] MEDS: MAG HYDROX/AL HYDROX/SIMETH 30 ML UDC 20 ML PO (05:27)
[2025-09-25] MEDS: ACETAMINOPHEN 500 MG TABLET 1000 MG PO ×4 (05:27→23:29)
--- NOTE | 2025-09-25 08:59 | PCPTNOTE ---
Attempted to see patient for PT, however patient worked with OT this morning and just laid back down with nursing. Patient reported he wanted to rest and did not want to get back up. Patient refused PT at this time.
[2025-09-25] MEDS: CITALOPRAM HYDROBROMIDE 20 MG TABLET PO (09:32)
[2025-09-25] MEDS: DOCUSATE SODIUM 100 MG CAPSULE PO ×2 (09:33→19:53)
[2025-09-25] MEDS: LANSOPRAZOLE ORAL SUSP 30 MG/10 ML ORAL.SUSP PO (12:27)
[2025-09-25] MEDS: ceFAZolin 2 GM in SODIUM CHLORIDE 0.9% IV 50 ML 100 ML IVPB (12:33)
--- NOTE | 2025-09-25 12:33 | ECG_ITS ---
Test Date: 2025-09-25 12:44:06 Measurements Intervals [place] Rate: 78 P: 35 TN: 158 QRS: 53 QRSD: 82 T: 15 QT: 350 QTc: 399 Interpretive Statements SINUS RHYTHM NONSPECIFIC T-WAVE ABNORMALITY- INFERIOR LEADS BORDERLINE ECG Compared to ECG 09/04/2025 13:07:04 No significant changes Electronically Signed On 09-25-2025 13:07:00 PATTERN MAKER PROGRAMER by Mendez Laguna D.O.
--- NOTE | 2025-09-25 12:46 | WPDANESPN ---
Anes - Prog Note Post-Op Date/Time: 09/25/25 12:46 Cardiovascular status: normal Respiratory status: normal Airway patency: baseline Mental status: baseline Post-Op hydration status: normal Vital Signs: Last Vital Signs Temp 36.8 C 09/25/25 12:12 Pulse 88 09/25/25 12:12 Resp 17 09/25/25 12:12 BP 119/72 09/25/25 12:12 Pulse Ox 94 09/25/25 12:12 O2 Del Method Room Air 09/25/25 08:08 O2 Flow Rate 4 09/24/25 12:43 Pain Score (VAS): 2 I/O: Intake & Output 09/24/25 09/25/25 09/25/25 23:59 07:59 15:59 Intake Total 806.7 141.7 480 Balance 806.7 141.7 480 Post-procedural complaints: none Patient Feedback: Patient satisfied with anesthetic care.
[2025-09-25 14:56] LABS: Alanine Aminotransferase 48 U/L (6-50); Albumin Level 3.9 g/dL (3.5-5.1); Alkaline Phosphatase 66 U/L (38-126); Anion Gap 1 mmol/L (4-12); Aspartate Amino Transferase 44 U/L (17-59); Bilirubin,Total 0.4 mg/dL (0.2-1.3); Blood Urea Nitrogen 18 mg/dL (9-20); Calcium 8.6 mg/dL (8.4-10.2); Carbon Dioxide 32 mmol/L (22-30); Chloride 106 mmol/L (98-107); Estimated CRCL calculation 81 ml/min; Estimated Glomerular Filt Rate > 60; Glucose 96 mg/dL (65-110); Potassium 4.6 mmol/L (3.4-5.0); Sodium 139 mmol/L (137-145); Total Protein 6.6 g/dL (6.3-8.2)
--- NOTE | 2025-09-25 16:58 | WPDNEUROSGPN ---
Progress Note: A&P Assessment and Plan (1) Status post cervical arthrodesis: Code(s): Z98.1 - Arthrodesis status Status: Acute (2) Right upper quadrant pain: Code(s): R10.11 - Right upper quadrant pain Status: Acute Plan - I have contacted [facility] to have him fitted for an [place] cervical collar which I would like for him to wear when he is out of bed. He does not need to wear it at rest. - I will order a right upper quadrant ultrasound as well as CMP to evaluate for possible gallbladder pathology - If these episodes continue, we will consider getting a CTA versus hospitalist consult further workup - I would like to monitor him again tonight for his dysphagia and his chest/right upper quadrant pain - Start DVT prophylaxis tonight Subjective Date/time seen: 09/25/25 12:58 Interval history: He is having intermittent pain in the back of his neck and pain into the right shoulder. The sensation in his arms and hands is improved compared to before surgery, and the pain that was in his left arm prior to surgery has significantly improved as well. He reports dysphagia but is able to swallow. He reminds me that he had some pre-existing esophageal issues prior to surgery as well. He also describes intermittent stabbing pain in the right lower chest/ upper abdominal area that can radiate to the back. This improved after receiving a dose of Prevacid. He had an EKG just prior to my arrival which was normal. He is currently on some oxygen but denies feeling short of breath. He is wondering whether his gallbladder is causing this pain. Review of Systems Review of Systems: All systems reviewed & are unremarkable except as noted in HPI and below Exam Narrative: AOx4 Incision c/d/i Full strength in upper extremities Sensation intact to light touch Objective Data Vital Signs Vital Signs: Vital Signs - 24 hr 09/24/25 17:50 09/24/25 20:12 09/25/25 00:12 Temperature 98.6 F 97.8 F Pulse Rate 79 76 Respiratory Rate 18 18 Blood Pressure 100/57 L 114/72 Pulse Oximetry 95 96 Oxygen Delivery Room Air 09/25/25 04:12 09/25/25 08:08 09/25/25 08:12 Temperature 97.7 F 97.8 F Pulse Rate 77 89 Respiratory Rate 16 16 Blood Pressure 108/72 100/54 L Pulse Oximetry 95 92 Oxygen Delivery Room Air 09/25/25 12:12 Temperature 98.2 F Pulse Rate 88 Respiratory Rate 17 Blood Pressure 119/72 Pulse Oximetry 94 Oxygen Delivery Intake/Output Intake/Output: Intake & Output 09/22/25 09/23/25 09/24/25 09/25/25 23:59 23:59 23:59 23:59 Intake Total 806.7 621.7 Balance 806.7 621.7 Meds/Results Medications: Active Medications Generic Name Dose Route Start Last Admin Trade Name Freq PRN Reason Stop Dose Admin Acetaminophen 1,000 mg 09/24/25 18:00 09/25/25 16:44 Acetaminophen 500 Mg Tablet PO 1,000 mg Q6HR CAMPBELL Administration Al Hydrox/Mg Hydrox/Simethicone 20 ml 09/24/25 13:12 09/25/25 05:27 Mag Hydrox/Al Hydrox/Simeth 30 Ml Udc PO 20 ml Q4H PRN Administration Indigestion/Heartburn Bisacodyl 10 mg 09/24/25 13:12 Bisacodyl 10 Mg Suppository RECTAL DAILY PRN Constipation Citalopram Hydrobromide 20 mg 09/25/25 09:00 09/25/25 09:32 Citalopram Hydrobromide 20 Mg Tablet PO 20 mg DAILY CAMPBELL Administration Docusate Sodium 100 mg 09/24/25 21:00 09/25/25 09:33 Docusate Sodium 100 Mg Capsule PO 100 mg Q12HR CAMPBELL Administration Fluticasone Propionate 2 spray 09/24/25 13:12 Fluticasone Propionate 0.05% Na Spr 16 Gm Btl (*Bkc) NASAL DAILY PRN allergy symptoms Lansoprazole 30 mg 09/25/25 09:00 09/25/25 12:27 Lansoprazole Oral Susp 30 Mg/10 Ml Oral.Susp PO 30 mg DAILY CAMPBELL Administration Lorazepam 0.5 mg 09/24/25 13:12 09/25/25 01:49 Lorazepam (*Crx) 0.5 Mg Tablet PO 0.5 mg BID PRN Administration Anxiety Morphine Sulfate 2 mg 09/24/25 13:12 09/25/25 12:24 Morphine Sulfate (*Crx) 4 Mg/Ml Inj IV PUSH 2 mg Q2H PRN Administration Breakthrough Pain Ondansetron HCl 4 mg 09/24/25 13:12 Ondansetron Inj 4 Mg/2 Ml Vial IV PUSH Q8H PRN Nausea And Vomiting Oxycodone HCl 10 mg 09/24/25 13:12 09/25/25 16:27 Oxycodone Hcl (*Crx) 5 Mg Tab Ir PO 10 mg Q4H PRN Administration Pain Rated 7-10 Oxycodone HCl 5 mg 09/24/25 13:12 Oxycodone Hcl (*Crx) 5 Mg Tab Ir PO Q4H PRN Pain Rated 4-6 Senna/Docusate Sodium 1 tab 09/24/25 13:12 Senna/Docusate Sodium Tablet PO HS PRN Constipation Tizanidine HCl 4 mg 09/24/25 13:12 09/25/25 04:58 Tizanidine Hcl 4 Mg Tablet PO 4 mg Q8H PRN Administration Muscle Spasticity Trazodone HCl 50 mg 09/24/25 13:12 Trazodone Hcl 50 Mg Tablet PO QHS PRN Insomnia Radiology Results: ITS Impressions Fluoroscopy 09/24/25 11:35 IMPRESSION: 1. Fluoroscopy utilized during instrumented C4-C7 anterior spinal fusion. See procedure note for further detail. Labs Labs: Laboratory Results - last 24 hr 09/25/25 14:38 Sodium 139 Potassium 4.6 Chloride 106 Carbon Dioxide 32 H Anion Gap 1 L BUN 18 Creatinine 1.04 Estim Creat Clear Calc 81 Estimated GFR > 60 Glucose 96 Calcium 8.6 Total Bilirubin 0.4 AST 44 ALT 48 Alkaline Phosphatase 66 Total Protein 6.6 Albumin 3.9
[2025-09-26] MEDS: oxyCODONE HCL (*CRX) 5 MG TAB IR 10 MG PO ×3 (04:26→14:52)
[2025-09-26 04:34] VITALS: BP 112/63; PULSE 81; RESP 16; TEMP 36.2; O2SAT 95
[2025-09-26] MEDS: ACETAMINOPHEN 500 MG TABLET 1000 MG PO ×2 (06:28→11:06)
--- NOTE | 2025-09-26 07:28 | P.PNNEUSUR_ITS ---
Progress Note: A&P Assessment and Plan (1) Chronic neck and back pain: Code(s): M54.2 - Cervicalgia; M54.9 - Dorsalgia, unspecified; G89.29 - Other chronic pain Status: Acute Plan 55 yo M s/p C4-7 ACDF. Some dysphagia is expected postoperatively and will improve with time. HE is able to eat soft foods. He still has epigastric pain of unclear etiology. He is awaiting RUQ ultrasound ordered by Dr. Manley. Workup thus far has been negative. Subjective Date/time seen: 09/26/25 07:28 Interval history: 55 yo M s/p C-7 ACDF with postoperative dysphagia and lowerchest/ruq pain. He still has persistent symptoms as he had yesterday. Labs were obtained which indicated normal liver/gallbladder function. EKG obtained which was negative. RUQ ultrasound pending. He does take PPI at home at baseline. Exam Narrative: awake alert MAEW 5/5 without focal deficit inc c/d/i neck soft/flat Objective Data Vital Signs Vital Signs: Vital Signs - 24 hr 09/25/25 08:08 09/25/25 08:12 09/25/25 12:12 Temperature 97.8 F 98.2 F Pulse Rate 89 88 Respiratory Rate 16 17 Blood Pressure 100/54 L 119/72 Pulse Oximetry 92 94 Oxygen Delivery Room Air 09/25/25 16:12 09/25/25 20:40 09/25/25 22:00 Temperature 98.5 F 97.7 F Pulse Rate 95 80 Respiratory Rate 18 20 Blood Pressure 134/81 134/76 Pulse Oximetry 96 94 Oxygen Delivery Autopap 09/25/25 22:50 09/26/25 04:34 Temperature 97.1 F L Pulse Rate 81 Respiratory Rate 26 H 16 Blood Pressure 112/63 Pulse Oximetry 95 Oxygen Delivery Autopap Intake/Output Intake/Output: Intake & Output 09/23/25 09/24/25 09/25/25 09/26/25 23:59 23:59 23:59 23:59 Intake Total 806.7 965.7 Balance 806.7 965.7 Meds/Results Medications: Active Medications Generic Name Dose Route Start Last Admin Trade Name Freq PRN Reason Stop Dose Admin Acetaminophen 1,000 mg 09/24/25 18:00 12/05/25 06:28 Acetaminophen 500 Mg Tablet PO 1,000 mg Q6HR CAMPBELL Administration Al Hydrox/Mg Hydrox/Simethicone 20 ml 09/24/25 13:12 09/25/25 05:27 Mag Hydrox/Al Hydrox/Simeth 30 Ml Udc PO 20 ml Q4H PRN Administration Indigestion/Heartburn Bisacodyl 10 mg 09/24/25 13:12 Bisacodyl 10 Mg Suppository RECTAL DAILY PRN Constipation Citalopram Hydrobromide 20 mg 09/25/25 09:00 09/25/25 09:32 Citalopram Hydrobromide 20 Mg Tablet PO 20 mg DAILY CAMPBELL Administration Docusate Sodium 100 mg 09/24/25 21:00 09/25/25 19:53 Docusate Sodium 100 Mg Capsule PO 100 mg Q12HR CAMPBELL Administration Enoxaparin Sodium 40 mg 09/26/25 09:00 Enoxaparin 40 Mg/0.4 Ml Syringe SUB-Q DAILY [facility] Fluticasone Propionate 2 spray 09/24/25 13:12 Fluticasone Propionate 0.05% Na Spr 16 Gm Btl (*Bkc) NASAL DAILY PRN allergy symptoms Lansoprazole 30 mg 09/25/25 09:00 09/25/25 12:27 Lansoprazole Oral Susp 30 Mg/10 Ml Oral.Susp PO 30 mg DAILY CAMPBELL Administration Lorazepam 0.5 mg 09/24/25 13:12 09/25/25 01:49 Lorazepam (*Crx) 0.5 Mg Tablet PO 0.5 mg BID PRN Administration Anxiety Morphine Sulfate 2 mg 09/24/25 13:12 09/25/25 23:29 Morphine Sulfate (*Crx) 4 Mg/Ml Inj IV PUSH 2 mg Q2H PRN Administration Breakthrough Pain Ondansetron HCl 4 mg 09/24/25 13:12 Ondansetron Inj 4 Mg/2 Ml Vial IV PUSH Q8H PRN Nausea And Vomiting Oxycodone HCl 10 mg 09/24/25 13:12 09/26/25 04:26 Oxycodone Hcl (*Crx) 5 Mg Tab Ir PO 10 mg Q4H PRN Administration Pain Rated 7-10 Oxycodone HCl 5 mg 09/24/25 13:12 Oxycodone Hcl (*Crx) 5 Mg Tab Ir PO Q4H PRN Pain Rated 4-6 Senna/Docusate Sodium 1 tab 09/24/25 13:12 Senna/Docusate Sodium Tablet PO HS PRN Constipation Tizanidine HCl 4 mg 09/24/25 13:12 09/25/25 19:57 Tizanidine Hcl 4 Mg Tablet PO 4 mg Q8H PRN Administration Muscle Spasticity Trazodone HCl 50 mg 09/24/25 13:12 Trazodone Hcl 50 Mg Tablet PO QHS PRN Insomnia Radiology Results: ITS Impressions Fluoroscopy 09/24/25 11:35 IMPRESSION: 1. Fluoroscopy utilized during instrumented C4-C7 anterior spinal fusion. See procedure note for further detail. Labs Labs: Laboratory Results - last 24 hr 09/25/25 14:38 Sodium 139 Potassium 4.6 Chloride 106 Carbon Dioxide 32 H Anion Gap 1 L BUN 18 Creatinine 1.04 Estim Creat Clear Calc 81 Estimated GFR > 60 Glucose 96 Calcium 8.6 Total Bilirubin 0.4 AST 44 ALT 48 Alkaline Phosphatase 66 Total Protein 6.6 Albumin 3.9
[2025-09-26] MEDS: ENOXAPARIN 40 MG/0.4 ML SYRINGE SUB-Q (08:54)
[2025-09-26] MEDS: LANSOPRAZOLE ORAL SUSP 30 MG/10 ML ORAL.SUSP PO (08:54)
[2025-09-26] MEDS: CITALOPRAM HYDROBROMIDE 20 MG TABLET PO (08:57)
[2025-09-26] MEDS: LORazepam (*CRX) 0.5 MG TABLET PO (11:00)
[2025-09-26] MEDS: DOCUSATE SODIUM 100 MG CAPSULE PO (11:00)
--- NOTE | 2025-10-01 14:41 | PM.DS ---
DS: Admitting Diagnosis Discharge Date 09/26/25 Admitting Diagnosis cervical radiculopathy DS: Summary Hospital Course Hospital Course: Mr. Porter is a 55-year-old male who presented for surgery on September 24. Please see the operative note for more details. He was transferred to the floor after surgery. He describes some pain into the right chest and right upper quadrant regions for which an EKG was performed which was normal. We also performed lab work and an ultrasound for possible cholecystitis which was negative. He noticed improvement in this pain with medications for indigestion. He reported dysphagia but was able to eat and drink without significant difficulty. His surgical pain was well controlled with medication. He was ambulating independently. He was determined ready for discharge home on postoperative day 2. Time Spent with Patient Time attestation: Total time spent providing and/or coordinating discharge services: Discharge Plan Discharge Consulting providers: Santana Torrez; Mendez Laguna; Júnior Vargas; Saulo Dejesus; Marlon Suggs Discharging Clinician: Odette Manley Patient Disposition: Home Activity: other - see discharge instructions Diet: as tolerated Discharge Instructions: Discharge Instructions Procedure: Anterior Cervical Diskectomy and Fusion (ACDF) Your doctor removed one or more discs from your neck, to remove pressure from the spinal cord or nerve roots, and then fused your spine using a small metal plate and a cage filled with synthetic bone. Here are some instructions to follow upon discharge from the hospital to help in your recovery: Activity: Until released by your doctor, you should not return to work. You should rest at home and let your body heal. Taking short walks is encouraged, but avoid strenuous exercise. Do not jog, run, lift weights, bicycle, or participate in any other exercises unless specifically allowed by your doctor. Most importantly, avoid lifting objects heavier than a telephone book or a carton of milk as this places a strain on your neck. If possible, avoid household activities that involve lifting such as laundry, grocery shopping, childcare. Try to arrange for help from friends and family for these activities while your neck heals. You should not drive for 7-10 days, until you are both off of narcotics and your neck has loosened up enough to safely check your blind spots. Your incision is covered with skin glue. This will typically peel off on its on in 14 days. You may shower starting on post-operative day 2 (Monday). After showering, lightly dab your wound dry. Do not take baths or sit in a hot tub or pool until approved by your doctor at your follow-up appointment. DO NOT SMOKE TOBACCO. Smoking has been proven to interfere with the normal healing of the bones in your neck. Smoking will dramatically reduce the success rate of your surgery. Diet: You can return to your usual diet, unless instructed otherwise by your doctor. However, for the first few weeks, some foods will be harder to swallow than others. In general, softer foods such as broths, jello, yogurt, pudding are easier. Harder foods, such as steak, chicken, bread, rice may be more difficult for the first few weeks and should be avoided. You may notice some pain with swallowing in the first month after surgery- this is NORMAL. During the operation, a breathing tube is placed down your throat by the anesthesiologist. In addition, your throat is gently pulled to one side to perform the surgery. For both of these reasons, your throat will be sore. Some patients also notice the sensation of having a ?lump? in their throat- this can be normal. However, if you are having difficulty swallowing liquids, call your doctor immediately. Medications: You may resume taking aspirin 1 week after surgery You should resume taking all of your normal medications, unless instructed otherwise by your doctor. However, you should not take anti-inflammatory medications (such as: Motrin, Advil, Ibuprofen, Naprosyn) unless specifically approved by your doctor. These medications can prevent your bones from healing properly after surgery. If you have questions about your normal medications (those prescribed for high blood pressure, for example), call your family doctor or pigs feet finisher. You will be given a prescription for pain medications and possibly a laxative, as pain medications can cause constipation. Take the pain medicines as instructed. If your pain is not reasonably controlled by the medications, contact your doctor?s office. Follow-up appointment: You should already have a follow-up appointment scheduled with Dr. Manley. If you do not have a follow-up appointment, call to schedule one. When to call our office: Although your surgery and recovery will likely be uneventful, you may have some residual aches and pains in your neck and/or arms. This is NORMAL and should improve in the next few weeks. Some patients also notice a new pain between the shoulder blades- this is normal and will slowly improve. However, should you experience any of the following, call our office immediately. For medical emergencies call 911. For urgent calls after hours, please call our exchange through our office at : 1. Fevers 2. Drainage from your incision, or surrounding redness or swelling 3. Pain that is progressively getting worse, and is not relieved by your medications 4. New numbness or weakness 5. Difficulty controlling your bladder 6. Loss of control of your bowels Odette Manley MD [facility] [address] [address], [place] [address] Patient Instructions: Antibiotic Form Patient Language: Chinese Stand Alone Forms: General Discharge Information Follow-up/Referrals: Odette Manley MD [Physician, Neurosurgery] Discharge Medications: New sennosides-docusate sodium [Senokot-S] 8.6-50 mg Tablet 1 tab PO BID 7 Days Qty: 14 0RF oxycodone 5 mg Tablet 5 mg PO Q4H PRN (Reason: Pain Rated 4-6) 7 Days Qty: 42 0RF methylprednisolone 4 mg tablets,dose pack See Rx Instructions .ROUTE .COMPLEX Qty: 21 0RF Rx Instructions: for 6 days Continued lansoprazole 30 mg capsule,delayed release(DR/EC) 30 mg PO DAILY Qty: 90 1RF tizanidine 4 mg tablet 4 mg PO Q8H PRN (Reason: muscle spasticity) Qty: 90 1RF citalopram 20 mg tablet 20 mg PO DAILY Qty: 90 1RF Patient Comments: QAM fluticasone propionate [Flonase Allergy Relief] 50 mcg/actuation spray,suspension 2 spray intranasal DAILY PRN (Reason: allergy symptoms) Qty: 16 2RF Rx Instructions: administer into each nostril trazodone 50 mg tablet 50 mg PO QHS PRN (Reason: insomnia) Qty: 30 1RF Zepbound 5 mg/0.5 mL pen injector 5 mg SUBCUT WEEKLY Patient Comments: Patient states he takes on Mondays lorazepam 0.5 mg tablet 0.5 mg PO BID PRN (Reason: anxiety) Qty: 60 2RF Held naproxen 500 mg tablet 500 mg PO BID PRN (Reason: pain) Qty: 60 3RF Hold Instructions: Resume on 12/24/25. aspirin [Adult Low Dose Aspirin] 81 mg tablet,delayed release (DR/EC) 81 mg PO DAILY Hold Instructions: Resume on 10/01/25. Date of admission: 09/24/25 08:23 Primary Care Provider: Evonne Rodriguez Admitting Provider: Odette Manley Attending physician on admission: Odette Manley Condition: Stable
== END 2025-09-26 16:55 | disposition home or self-care (01) | DRG 473 ==
LOC: ANH3MEDSUR 16:36
PROVIDERS: Admitting Provider Neurological Surgery; PCP Nurse Practitioner Family; Visit Provider Neurological Surgery
PROC: 0RG20A0 Fusion of 2 or more Cervical Vertebral Joints with Interbody Fusion Device, Anterior Approach, Anterior Column, Open Approach (ICD-10-PCS; CPT 63030; principal; 2025-09-24 07:30)
DX: M48.02 Spinal stenosis, cervical region (principal); M54.12 Radiculopathy, cervical region; K21.9 Gastro-esophageal reflux disease without esophagitis; R10.11 Right upper quadrant pain; G47.33 Obstructive sleep apnea (adult) (pediatric); F41.9 Anxiety disorder, unspecified; Z96.651 Presence of right artificial knee joint; Z98.1 Arthrodesis status; Z79.82 Long term (current) use of aspirin
CPT/HCPCS: 36415; 76705; 80053; 86850; 86900; 86901; 93005; 97116; 97161; 97165; 97530; 97535; 99199; J0690; A9270; C1713; J0330; J1100; J1171; J1650; J2003; J2250; J2270; J2405; J2704; J3010; J7030; J7120; L0140